=== PATIENT | female | born 1970 | race Caucasian/White ===

== ENCOUNTER 2022-12-07 09:40 | Day surgery (SDC) | payer OTHER, SELFPAY ==
--- NOTE | 2022-12-07 09:54 | US_ITS ---
[address] [address] Patient Name: RODRIGUEZ ALEXANDER MRN: [id number] date: 1970 Sex: F Assigned Patient Location: US Current Patient Location: Accession/Order Number: [id number] Exam Date: 12/07/2022 10:05 Report Date: 12/07/2022 12:49 At the request of: DOLLY ANDRADE Procedure: US biopsy thyroid EXAMINATION: US biopsy thyroid, US biopsy FNA add lesion HISTORY: Left Thyroid Nodule COMPARISON: No relevant comparison available. TECHNIQUE: After obtaining informed consent, an ultrasound-guided biopsy was performed in the usual sterile manner. FINDINGS: Nodule 1: IMAGING: Ultrasound BIOPSY NEEDLE: 25-gauge 2 inch SPECIMEN TYPE, #, LOCATION: 3 fine-needle aspirates left mid lobe thyroid nodule MEDICATION: 2 cc 1% buffered lidocaine COMPLICATIONS: None. LABORATORY: As ordered by Dr. Andrade OTHER: Negative. Nodule 2: IMAGING: Ultrasound BIOPSY NEEDLE: 25-gauge 2 inch SPECIMEN TYPE, #, LOCATION: 3 fine-needle aspirates left lower lobe thyroid nodule MEDICATION: 2 cc 1% buffered lidocaine COMPLICATIONS: None. LABORATORY: As ordered by Dr. Andrade OTHER: Negative. US/US biopsy thyroid IMPRESSION: Uneventful ultrasound guided biopsy of 2 separate left thyroid nodules. The patient was instructed to obtain follow up care and biopsy results from the referring physician. Electronically authenticated by: LEXIS JAIN Date: 12/07/2022 12:49
[2022-12-07 10:00] VITALS: BP 122/88; PULSE 84; O2SAT 100
--- NOTE | 2022-12-07 10:25 | US_ITS ---
[address] [address] Patient Name: RODRIGUEZ ALEXANDER MRN: [id number] date: 1970 Sex: F Assigned Patient Location: US Current Patient Location: Accession/Order Number: [id number] Exam Date: 12/07/2022 10:25 Report Date: 12/07/2022 12:49 At the request of: DOLLY ANDRADE Procedure: US biopsy FNA add lesion EXAMINATION: US biopsy thyroid, US biopsy FNA add lesion HISTORY: Left Thyroid Nodule COMPARISON: No relevant comparison available. TECHNIQUE: After obtaining informed consent, an ultrasound-guided biopsy was performed in the usual sterile manner. FINDINGS: Nodule 1: IMAGING: Ultrasound BIOPSY NEEDLE: 25-gauge 2 inch SPECIMEN TYPE, #, LOCATION: 3 fine-needle aspirates left mid lobe thyroid nodule MEDICATION: 2 cc 1% buffered lidocaine COMPLICATIONS: None. LABORATORY: As ordered by Dr. Andrade OTHER: Negative. Nodule 2: IMAGING: Ultrasound BIOPSY NEEDLE: 25-gauge 2 inch SPECIMEN TYPE, #, LOCATION: 3 fine-needle aspirates left lower lobe thyroid nodule MEDICATION: 2 cc 1% buffered lidocaine COMPLICATIONS: None. LABORATORY: As ordered by Dr. Andrade OTHER: Negative. US/US biopsy FNA add lesion IMPRESSION: Uneventful ultrasound guided biopsy of 2 separate left thyroid nodules. The patient was instructed to obtain follow up care and biopsy results from the referring physician. Electronically authenticated by: LEXIS JAIN Date: 12/07/2022 12:49
[2022-12-07] MEDS: LIDOCAINE HCL 10 ML, SODIUM BICARBONATE 1 MEQ INJ (10:45)
--- NOTE | 2022-12-07 11:32 | PC.NURSE ---
1056 At very end of procedure pt began to complain of pain radiating around right neck to posterior neck. Pt then began to cry . Dr Li assisting with pt and rescanned thyroid and had no problems noted. 1058 Pt allowed to remain sitting and to move neck some while I started to hold pressure on site for next 4 minutes with hemostasis achieved. 1105 Bandaid applied and ice pack to biopsy site and right neck area. Pt states that the pain has been feeling better since moving and sitting for a little while. Pt states that she feels like she is able to go home.
== END 2022-12-07 11:11 | disposition home or self-care (01) ==
LOC: US 09:45
PROVIDERS: Radiology Diagnostic Radiology; Visit Provider Otolaryngology
DX: E04.1 Nontoxic single thyroid nodule (principal)
CPT/HCPCS: 10005; 10006; 88173

== ENCOUNTER 2023-07-17 10:07 | Outpatient (OUT) | payer OTHER, SELFPAY ==
--- NOTE | 2023-07-17 10:13 | US_ITS ---
The [address] [address] Patient Name: RODRIGUEZ ALEXANDER MRN: [id number] date: 1970 Sex: F Assigned Patient Location: US Current Patient Location: US Accession/Order Number: [id number] Exam Date: 07/17/2023 10:14 Report Date: 07/17/2023 11:18 At the request of: DOLLY CHO Procedure: US thyroid EXAMINATION: US thyroid HISTORY: Malignant Neoplasm Of Thyroid C73 COMPARISON: 11/09/2022, 12/07/2022 TECHNIQUE: Sonographic images of the thyroid gland were obtained. FINDINGS: The right thyroid lobe measures 4.9 x 1.2 x 1.6 cm. 2 focal nodules over 5 mm. Nodule 1:0.9 x 0.5 x 0.8 cm. Solid, hypoechoic, wide, smooth margins, no calcifications. TR 4 Nodule 2:0.7 x 0.4 x 0.7 cm. Solid, hypoechoic, wide, smooth margins, no calcifications. TR 4 The thyroid isthmus measures 4 mm, mildly thickened. No focal nodule The left thyroid lobe is surgically absent US/US thyroid IMPRESSION: 2 right subcentimeter TR 4 nodules. TI-RADS: The [employer] TI-RADS committee's white paper recommendations for thyroid lesions classified as TR4 (moderately suspicious) are listed below: > 1.0 cm. Follow-up ultrasound in 1, 2, 3, and 5 years. > 1.5 cm. FNA. J. Am Dana Radiol 2017;14:587-595. Electronically authenticated by: LEXIS JAIN Date: 07/17/2023 11:18
== END 2023-07-17 10:08 | disposition home or self-care (01) ==
LOC: US 10:08
PROVIDERS: Visit Provider Otolaryngology
DX: C73 Malignant neoplasm of thyroid gland (principal); E04.2 Nontoxic multinodular goiter
CPT/HCPCS: 76536

== ENCOUNTER 2023-12-07 15:17 | Outpatient (OUT) | payer OTHER, SELFPAY ==
--- NOTE | 2023-12-07 15:19 | US_ITS ---
The [address] [address] Patient Name: RODRIGUEZ ALEXANDER MRN: [id number] date: 1970 Sex: F Assigned Patient Location: US Current Patient Location: Accession/Order Number: [id number] Exam Date: 12/07/2023 15:24 Report Date: 12/11/2023 08:13 At the request of: DOLLY CHO Procedure: US thyroid EXAMINATION: US thyroid HISTORY: Papillary Thyroid Carcinoma, Thyroid Nodule COMPARISON: 07/17/2023 TECHNIQUE: Sonographic images of the thyroid gland were obtained. FINDINGS: The right thyroid lobe measures 4.8 x 1.4 x 1.4 cm. Mild heterogeneous echotexture with 2 nodules over 5 mm per the most suspicious nodule: Nodule 1:1.0 x 0.6 x 0.5 cm. Solid, hypoechoic, wide, smooth margins, no calcifications. TR 4 The thyroid isthmus measures 2.4 mm. No focal nodule Left thyroid lobe is surgically absent US/US thyroid IMPRESSION: 2 stable right thyroid nodules the largest a 1.0 cm TR 4 nodule TI-RADS: The [employer] TI-RADS committee's white paper recommendations for thyroid lesions classified as TR4 (moderately suspicious) are listed below: > 1.0 cm. Follow-up ultrasound in 1, 2, 3, and 5 years. > 1.5 cm. FNA. J. Am Dana Radiol 2017;14:587-595. Electronically authenticated by: LEXIS JAIN Date: 12/11/2023 08:13
== END 2023-12-07 15:18 | disposition home or self-care (01) ==
LOC: US 15:17
PROVIDERS: Visit Provider Otolaryngology
DX: C73 Malignant neoplasm of thyroid gland (principal)
CPT/HCPCS: 76536

== ENCOUNTER 2024-08-22 19:11 | Outpatient (OUT) | payer OTHER, SELFPAY ==
--- NOTE | 2024-08-22 19:16 | US_ITS ---
The [address] [address] Patient Name: RODRIGUEZ ALEXANDER MRN: [id number] date: 1970 Sex: F Assigned Patient Location: US Current Patient Location: Accession/Order Number: [id number] Exam Date: 08/23/2024 08:07 Report Date: 08/23/2024 08:08 At the request of: DOLLY CHO MD Procedure: US thyroid Thyroid ultrasound Reason for exam: Nontoxic multinodular goiter Comparison: Thyroid ultrasound 12/07/2023 Technique: Grayscale and color Doppler images of the thyroid gland were obtained. Findings: The right lobe measures 4.3 x 1.1 x 1.5 cm. The left lobe has been removed. Isthmus measures 9 mm. 2. Hypoechoic nodules are identified within the right lobe largest measuring 8 x 7 x 5 mm involving the superior pole. No microcalcifications. The second is seen involving the midpole of the right lobe measuring 8 x 6 x 3 mm. These nodules are grossly unchanged from the prior ultrasound study. US/US thyroid Impression: Stable nodules involving the remaining right lobe of the thyroid gland when compared to the prior study from 12/07/2023. Repeat ultrasound in one year is suggested. Impression dictated by: Jesica Diana Jr.OSivakumar 08/23/2024 8:08 AM Dictation Location: [facility] Electronically authenticated by: [id number] Y Date: 08/23/2024 08:08
== END 2024-08-22 19:12 | disposition home or self-care (01) ==
PROVIDERS: Visit Provider Otolaryngology
DX: E04.2 Nontoxic multinodular goiter (principal)
CPT/HCPCS: 76536

== ENCOUNTER 2025-01-13 17:34 | Outpatient (OUT) | payer OTHER, SELFPAY ==
--- NOTE | 2025-01-13 | US_ITS ---
The [address] [address] Patient Name: RODRIGUEZ ALEXANDER MRN: [id number] date: 1970 Sex: F Assigned Patient Location: US Current Patient Location: Accession/Order Number: [id number] Exam Date: 01/13/2025 18:20 Report Date: 01/14/2025 09:02 At the request of: DOLLY CHO MD Procedure: US thyroid THYROID ULTRASOUND COMPARISON: 08/22/2024 CLINICAL DATA: Follow-up right thyroid nodules. Previous left thyroidectomy for papillary carcinoma. The left thyroid lobe is surgically absent. No masses are seen at the thyroid bed. The right thyroid lobe measures 4.2 x 1.5 x 1.3 cm. The isthmus measures 2 - 3 mm. There is normal echogenicity. At the superior pole, there is redemonstration of a slightly hyperechoic nodule with hypoechoic rim measuring 6 x 4 x 7 mm. This is not significantly changed. At the inferior pole, there is a heterogeneous hypoechoic nodular area measuring 6 x 4 x 6 mm, also similar. No new nodularity is noted. US/US thyroid IMPRESSION: PRIOR LEFT THYROIDECTOMY. NO RECURRENT MASS. STABLE SUBCENTIMETER RIGHT THYROID NODULES. Impression dictated by: Tala Owens M.D. 01/14/2025 9:02 AM Dictation Location: [facility] Electronically authenticated by: [id number] Y Date: 01/14/2025 09:02
--- OUTSIDE RECORDS SUMMARY | 2025-01-13 17:38 | XMS_ITS | Encounter Summary ---
Author Organization [facility] Address [address] [place] [address] Care Team Providers Care Digital Tech Name Role Phone Seymour Waller MD Primary Care Provider Bere Andrade MD Unavailable [phone] Encounter Details Date Type Department Care Team (Latest Contact Info) Description 08/23/2024 Results Follow-Up [facility] [address] [place] [address] Maryanne Ortega PA [address] [place] [address] Dermatopathology exam Social History Tobacco Use Types Packs/Day Years Used Date Smoking Tobacco: Never Smokeless Tobacco: Never Alcohol Use Standard Drinks/Week Comments Not Currently 0 (1 standard drink = 0.6 oz pur e alcohol) Comments Unknown Sex and Gender Information Value Date Recorded Sex Assigned at Not on file Legal Sex Female 10:49 AM EDT Gender Identity Not on file Sexual Orientation Not on file documented as of this encounter Plan of Treatment Not on file documented as of this encounter Visit Diagnoses Not on filedocumented in this encounter Care Teams Digital Tech Relationship Specialty Start Date End Date Seymour Waller MD [address] [place] [address] PCP - General Family Medicine 11/16/22 Bere Andrade MD [address] [facility] [address] [place] [address] Otolaryngology 11/23/22 documented as of this encounter
--- OUTSIDE RECORDS SUMMARY | 2025-01-13 17:38 | XMS_ITS | CCD ---
Author Organization [facility] Care Team Providers Care Mailing Machine Assistant Name Role Phone Conn, Rose C Unavailable Unavailable Conn, Rose C Unavailable Unavailable Conn, Rose C Unavailable Unavailable Conn, Rose C Unavailable Unavailable Conn, Rose C Unavailable Unavailable Conn, Rose C Unavailable Unavailable Conn, Rose C Unavailable Unavailable Conn, Rose C Unavailable Unavailable LINDY, SRI Unavailable Unavailable LINDY, SRI Unavailable Unavailable REQUEST, NONE LISTED Unavailable Unavailable LEXIS JAIN V Unavailable Unavailable LINDY, SRI Unavailable Unavailable No, Physician Unavailable Unavailable No, Physician Primary Care Provider Unavailabl e NO, PHYSICIAN Primary Care Unavailable STEPHANIE DOSS Attending Unavailable Jaky Pimentel Primary Care Provider Margarito OZUNA - Jaky JIMENEZ Primary Care Prov ider Unavailable NONE, XXXX Primary Care Physician Unavailab Seymour Barton Primary Care Physician [phone] NO, PHYSICIAN Primary Care Unavailable DISHA BISHOP Attending Unavailab le NO, PHYSICIAN Primary Care Unavailable Seymour Waller Primary Care Physician [phone] JUAQUIN CHAVEZ Attending Unavailable Link, Seymour Suarez Attending Unavailable Link, Seymour Suarez Attending Unavailable Link, Seymour Suarez Attending Unavailable Link, Seymour Suarez Admitting Unavailable Link, Seymour Suarez Attending Unavailable Timmis, Dolly H Admitting Unavailable Timmis, Dolly H Attending Unavailable Timmis, Dolly H Admitting Unavailable Timmis, Dolly H Attending Unavailable Rex Van Admitting Unavailable Rex Van Attending Unavailable Rex Van Admitting Unavailable Rex Van Attending Unavailable JUAQUIN CHAVEZ Admitting Unavailable JUAQUIN CHAVEZ Attending Unavailable TONY Ayala Admitting Unavailable TONY Ayala Attending Unavailable Rex Van Attending Unavailable Rex Van Attending Unavailable Disha Haywood Attending Unavailable Dolly Cho Attending Unavailable Dolly Cho Admitting Unavailable Seymour Waller MD Primary Care Provider Dolly Cho MD Unavailable Tonya Oconnor DNP Primary Care Provider Seymour Waller MD Primary Care Provider MARIA LUZ ORTEGA Attending Unavailable SAEED MAGALLANES Referring Unavailable MARIA LUZ ORTEGA Attending Unavailable DOLLY CHO Attending Unavailable TONYA OCONNOR Referring Unavailable TONYA OCONNOR Primary Care Unavailable TONYA OCONNOR Referring Unavailable TONYA OCONNOR Primary Care Unavailable Allergies Allergy Classification Reported Allergen(s) Allergy Type Date of Onset Reaction(s) Facility Hepatitis B Surface Antigen Vaccine (1 source) Hepatitis B Surface Antigen Vaccine; Translations: [hepatitis B adult vaccine] Drug Allergy Fever (finding) [facility] (20 sources) Hepatitis B Surface Antigen Vaccine; Translations: [hepatitis B adult vaccine] Drug Allergy Fever (finding), Swelling [facility] (1 source) No Known Medication Allergies; Translations: [No Known Medication Allergies] Propensity to adverse reactions (disorder) [facility] Repository Medications Current Medications Medication Drug Class(es) Dates Sig (Normalized) Sig (Original) 0.5 ML semaglutide 1 MG/ML Auto-Injector [Wegovy] (2 sources) Start: 11-30-2023 inject 0.5 mg by subcutaneous injection every week Wegovy (0.5 mg dose) subcutaneous solution 0.5 mg, SubCutaneous, qWeek, # 1 EA, Refills(s) 1, Pharmacy: [facility] #[id number], 169, cm, 11/30/23 7:52:00 EDT, Height/Length Dosing, 106.4, kg, 11/30/23 7:52:00 EDT, Weight Dosing Start Date: 11/30/23 Status: Ordered acetaminophen 500 mg oral tablet (3 sources) take 2 tablets by mouth every six hours as needed for pain acetaminophen (TYLENOL) 500 MG tablet Take 1,000 mg by mouth every 6 hours as needed for Pain 0 Active acetaminophen 300 mg / butalbital 50 mg / caffeine 40 mg oral capsule (5 sources) Barbiturate, Central Nervous System Stimulant, Methylxanthine Start: 05-31-2019 take 1 capsule by mouth every four hours as needed for headache srvynrnrps-GBAT-cc ffeine (FIORICET) 50-300-40 MG CAPS per capsule Indications: Migraine without status migrainosus, not intractable, unspecified migraine type Take 1 capsule by mouth every 4 hours as needed for Headaches 20 capsule 0 05/31/2019 Active Start: 08-06-2017 End: 12-06-2020 take 2 tablets by mouth every six hours as needed for headache sncipxipcy-ssadiahielztp-fnikyhwi (GIANCARLO CET, ESGIC) 50-325-40 MG per tablet Take 2 tablets by mouth every 6 hours as needed for Headaches 20 tablet 0 08/06/2017 12/06/2020 Discontinued (LIST CLEANUP) [id number] 200 actuat albuterol 0.09 mg/actuat metered dose inhaler (7 sources) beta2-Adrenergic Agonist Start: 06-18-2024 take 2 puff(s) by inhalation every six hours as needed for wheezing albuterol sulfate HFA (PROVENTIL;VENTOLIN;PROAIR) 108 (90 Base) MCG/ACT inhaler Inhale 2 puffs into the lungs every 6 hours as needed for Wheezing or Shortness of Breath 18 g 5 06/18/2024 Active albuterol (PROVE NTIL) (2.5 MG/3ML) 0.083% nebulizer solution Take 2.5 mg by nebulization every 6 hours as needed for Wheezing 0 Active take 2 puff(s) by in halation every six hours as needed for wheezing albuterol sulfate HFA 108 (90 Base) MCG/ACT inhaler Inhale 2 puffs into the lungs every 6 hours as needed for Wheezing 0 Active take 2 puff(s) by in halation every six hours as needed for wheezing albuterol sulfate HFA 108 (90 Base) MCG/ACT inhaler Inhale 2 puffs into the lungs every 6 hours as needed for Wheezing 0 Active albuterol (PROVE NTIL) 2.5 mg /3 mL (0.083 %) nebulizer solution 2.5 mg every 6 (six) hours as needed . 0 Active Albuterol (Eqv-ProAir HFA) 90 mcg/inh inhalation aerosol (9 sources) Start: 06-26-2023 take 2 puff(s) by inhalation every six hours Albuterol (Eqv-ProAir HFA) 90 mcg/inh inhalation aerosol 2 puff(s), Inhalation, q6hr, 8.5 gm, Refill(s) 0, [facility] #[id number], 169, cm, 06/26/23 17:54:00 EST, Height/Length Dosing, 104, kg, 06/26/23 17:54:00 EST, Weight Dosing Start Date: 06/26/23 Status: Ordered amitriptyline hydrochloride 25 mg oral tablet (20 sources) Tricyclic Antidepressant Start: 09-23-2024 take 1 tablet by mouth once daily amitriptyline (ELAVIL) 25 MG tablet Take 1 tablet by mouth nightly 90 tablet 1 09/23/2024 Active Start: 01-26-2023 take 1 tablet by roderick th once daily amitriptyline (ELAVIL) 25 MG tablet Take 1 tablet by mouth nightly 90 tablet 05/28/2024 Active Start: 01-03-2023 take 1 tablet by roderick th once daily at bedtime amitriptyline 10 mg Tab 10 mg = 1 tab(s), Oral, Once a day (at bedtime), Refills(s) 0, Migraine headache Start Date: 01/03/23 Status: Ordered azithromycin 250 mg oral tablet (3 sources) Macrolide Antimicrobial Start: 05-24-2023 End: 05-29-2023 Zithromax 250 mg Tab = 1 packet(s), Oral, As Directed, as directed on package labeling, X 5 day(s), # 6 tab(s), Refills(s) 0, Pharmacy: [facility] #[id number], 169, cm, 05/24/23 14:13:00 EST, Height/Length Dosing, 100.9, kg, 05/24/23 14:13:00 EST, Weight Dosing Start Date: 05/24/23 Stop Date: 05/29/23 Status: Ordered Start: 12-06-2020 End: 12-11-2020 azithromycin (ZITHROMAX) 250 MG tablet Indications: Pneumonia due to COVID-19 virus Take 1 tablet by mouth See Admin Instructions for 5 days 500mg on day 1 followed by 250mg on days 2 - 5 6 tablet 0 12/06/2020 12/11/2020 Active benzonatate 100 mg oral capsule (3 sources) Non-narcotic Antitussive Start: 11-26-2023 End: 12-03-2023 take 1 capsule by mouth three times daily Tessalon 100 mg Cap 100 mg = 1 cap(s), Oral, TID, X 7 day(s), # 21 cap(s), Refills(s) 0, Pharmacy: [facility] #[id number], 169, cm, 11/26/23 10:34:00 EDT, Height/Length Dosing, 106.3, kg, 11/26/23 10:34:00 EDT, Weight Dosing Start Date: 11/26/23 Stop Date: 12/03/23 Status: Ordered busPIRone hydrochloride 10 mg oral tablet (20 sources) Start: 09-23-2024 take 1 tablet by mouth once daily busPIRone (BUSPAR) 10 MG tablet Take 1 tablet by mouth daily 90 tablet 1 09/23/2024 Active Start: 04-08-2024 take 1 tablet by roderick th once daily busPIRone (BUSPAR) 10 MG tablet Take 1 tablet by mouth daily 04/08/2024 Active Start: 11-06-2023 take 1 tablet by roderick th twice daily busPIRone 10 mg Tab See Instructions, take 1 tablet by mouth twice a day, # 60 tab(s), Refills(s) 0, [facility]acy: [facility] #[id number], 169, cm, 09/04/23 8:33:00 EDT, Height/Length Dosing, 105.1, kg, 09/04/23 8:33:00 EDT, Weight Dosing Start Date: 11/06/23 Status: Ordered Start: 09-04-2023 End: 12-06-2020 take 1 tablet by mouth twice daily busPIRone 10 mg Tab 10 mg = 1 tab(s), Oral, BID, # 60 tab(s), Refills(s) 1, Pharmacy: [facility] #[id number], 169, cm, 09/04/23 8:33:00 EDT, Height/Length Dosing, 105.1, kg, 09/04/23 8:33:00 EDT, Weight Dosing Start Date: 09/04/23 Status: Ordered Start: 04-12-2019 busPIRone (BUS PAR) 15 MG tablet busPIRone (Buspa r) 10 MG tablet Take by mouth 2 (two) times a day Active take 1 tablet by roderick th three times daily busPIRone (BUSPAR) 10 MG tablet Take 10 mg by mouth 3 (three) times a day. 0 Active cetirizine hydrochloride 10 mg oral tablet (10 sources) Histamine-1 Receptor Antagonist Start: 05-21-2024 take 1 tablet by mouth once daily cetirizine (ZYRTEC) 10 MG tablet Take 1 tablet by mouth daily 05/21/2024 Active Start: 09-04-2023 take 1 tablet by roderick th once daily cetirizine 10 mg Tab 10 mg = 1 tab(s), Oral, Daily, # 90 tab(s), Refills(s) 3, Pharmacy: [facility], 169, cm, 09/04/23 8:33:00 EDT, Height/Length Dosing, 105.1, kg, 09/04/23 8:33:00 EDT, Weight Dosing Start Date: 09/04/23 Status: Ordered End: 12-06-2020 Cetirizine HCl (ZYRTEC ALLER GY PO) Take by mouth daily 0 12/06/2020 Discontinued (LIST CLEANUP) Cetirizine HCl ( ZYRTEC ALLERGY PO) Take by mouth daily 0 Active cetirizine (ZyrT EC) 10 MG tablet Take by mouth daily . 0 Active ciclopirox 0.0077 mg/mg topical gel (8 sources) Start: 07-29-2024 Ciclopirox (LOPROX) 0.77 % gel Indications: Tinea corporis Apply topical to tinea corporis sites on breast L, arms and neck area 2 x day for 14 days 100 g 07/29/2024 Active cyclobenzaprine hydrochloride 10 mg oral tablet (2 sources) Muscle Relaxant End: 12-06-2020 take 1 tablet by mouth three times daily as needed for muscle spasms cyclobenzaprine (FLEXERIL) 10 MG tablet Take 10 mg by mouth 3 times daily as needed for Muscle spasms 0 12/06/2020 Discontinued (LIST CLEANUP) Cymbalta 60 mg Cap-DR (1 source) Start: 01-03-2023 take 1 capsule by mouth once daily Cymbalta 60 mg Cap-DR 60 mg, Oral, Daily, Refills(s) 0, Depression Start Date: 01/03/23 Status: Ordered DULoxetine 60 mg delayed release oral capsule (20 sources) Serotonin and Norepinephrine Reuptake Inhibitor Start: 09-23-2024 take 1 capsule by mouth once daily DULoxetine (CYMBALTA) 60 MG extended release capsule Take 1 capsule by mouth daily 90 capsule 1 09/23/2024 Active Start: 04-12-2019 take 1 capsule by mo uth once daily DULoxetine (CYMBALTA) 60 MG extended release capsule Take 1 capsule by mouth daily 90 capsule 05/28/2024 Active End: 12-06-2020 take 2 capsules by mouth once daily DULoxetine (CYMBALTA) 30 MG capsule Take 60 mg by mouth daily. 0 12/06/2020 Discontinued (LIST CLEANUP) take 1 capsule by mo ut once daily DULoxetine (CYMBALTA) 20 MG capsule Take 20 mg by mouth daily. 0 Active Мария (20 sources) Histamine-1 Receptor Antagonist Start: 01-03-2023 take 15 mg by mouth once daily Мария 15 mg, Oral, Daily, Refills(s) 0, Allergy symptoms Start Date: 01/03/23 Status: Ordered End: 08-30-2024 take 1 tablet by mouth in the morning fexofenadine (Мария) 180 MG tablet Take 180 mg by mouth in the morning. 08/30/2024 Discontinued fluconazole 150 mg oral tablet (6 sources) Azole Antifungal Start: 05-24-2023 take 1 tablet by mouth once Diflucan 150 mg Tab 150 mg = 1 tab(s), Oral, Once, # 1 tab(s), Refills(s) 0, Pharmacy: [facility] #[id number], 169, cm, 05/24/23 14:13:00 EST, Height/Length Dosing, 100.9, kg, 05/24/23 14:13:00 EST, Weight Dosing Start Date: 05/24/23 Status: Ordered hydroCHLOROthiazide 12.5 mg / losartan potassium 50 mg oral tablet (8 sources) Thiazide Diuretic, Angiotensin 2 Receptor Elisha Start: 09-23-2024 take 1 tablet by mouth once daily losartan-hydroCHLO ROthiazide (HYZAAR) 50-12.5 MG per tablet Take 1 tablet by mouth daily 90 tablet 1 09/23/2024 Active Start: 06-18-2024 take 1 tablet by roderick th once daily losartan-hydroCHLOROthiazide (Hyzaar) 50-12.5 MG tablet Take 1 tablet by mouth Daily 06/18/2024 Active ibuprofen 200 mg oral tablet (3 sources) Nonsteroidal Anti-inflammatory Drug End: 12-06-2020 take 3 tablets by mouth every six hours as needed for pain ibuprofen (ADVIL;MOTRIN) 200 MG tablet Take 600 mg by mouth every 6 hours as needed for Pain 0 12/06/2020 Discontinued (LIST CLEANUP) losartan potassium 50 mg oral tablet (20 sources) Angiotensin 2 Receptor Elisha Start: 01-26-2023 End: 08-30-2024 take 1 tablet by mouth once daily losartan 50 mg Tab 50 mg = 1 tab(s), Oral, Daily, # 90 tab(s), Refills(s) 3, Pharmacy: [facility], 169, cm, 09/04/23 8:33:00 EDT, Height/Length Dosing, 105.1, kg, 09/04/23 8:33:00 EDT, Weight Dosing Start Date: 09/04/23 Status: Ordered Start: 01-03-2023 take 1 tablet by roderick th once daily losartan 25 mg Tab 25 mg = 1 tab(s), Oral, Daily, Refills(s) 0, High blood pressure Start Date: 01/03/23 Status: Ordered Multivitamin preparation (13 sources) Start: 01-13-2023 take 1 tablet by mouth once daily multivitamin 1 tab, Oral, Daily, Prophylaxis Start Date: 01/13/23 Status: Ordered omeprazole 40 mg delayed release oral capsule (8 sources) Proton Pump Inhibitor Start: 09-23-2024 take 1 capsule by mouth once daily before breakfast omeprazole (PRILOSEC) 40 MG delayed release capsule Take 1 capsule by mouth every morning (before breakfast) 90 capsule 1 09/23/2024 Active Start: 05-28-2024 take 1 capsule by mo uth before mealtime omeprazole (PriLOSEC) [address] capsule Take 40 mg by mouth in the morning. Take before meals. 05/28/2024 Active ondansetron 4 mg disintegrating oral tablet (2 sources) Serotonin-3 Receptor Antagonist Start: 12-06-2020 take 1 tablet by mouth every eight hours as needed for nausea ondansetron (ZOFRAN ODT) 4 MG disintegrating tablet Take 1 tablet by mouth every 8 hours as needed for Nausea or Vomiting 12 tablet 0 12/06/2020 Active Start: 12-06-2020 End: 12-06-2020 ondansetron (ZOFRAN) injecti on 4 mg predniSONE 20 mg oral tablet (3 sources) Start: 06-26-2023 End: 07-01-2023 take 2 tablets by mouth once daily predniSONE 20 mg Tab 40 mg = 2 tab(s), Oral, Daily, X 5 day(s), # 10 tab(s), Refills(s) 0, Pharmacy: [facility] #[id number], 169, cm, 06/26/23 17:54:00 EST, Height/Length Dosing, 104, kg, 06/26/23 17:54:00 EST, Weight Dosing Start Date: 06/26/23 Stop Date: 07/01/23 Status: Ordered Start: 05-24-2023 End: 05-29-2023 take 2 tablets by mouth twice daily predniSONE 20 mg Tab 40 mg = 2 tab(s), Oral, BID, X 5 day(s), # 20 tab(s), Refills(s) 0, Pharmacy: [facility] #[id number], 169, cm, 05/24/23 14:13:00 EST, Height/Length Dosing, 100.9, kg, 05/24/23 14:13:00 EST, Weight Dosing Start Date: 05/24/23 Stop Date: 05/29/23 Status: Ordered rizatriptan 10 mg oral tablet (20 sources) Serotonin-1b and Serotonin-1d Receptor Agonist Start: 09-23-2024 End: 12-22-2024 take 1 tablet by mouth once daily as needed rizatriptan (MAXALT) 10 MG tablet Take 1 tablet by mouth daily as needed for Migraine May repeat in 2 hours if needed 90 tablet 09/23/2024 12/22/2024 Active Start: 09-04-2023 End: 08-27-2024 take 1 tablet by mouth once daily as needed rizatriptan (MAXALT) 10 MG tablet Take 1 tablet by mouth daily as needed for Migraine May repeat in 2 hours if needed 90 tablet 05/29/2024 08/27/2024 Active Start: 01-03-2023 rizatriptan 5 mg oral tablet 5 mg = 1 tab(s), Oral, As Directed, PRN Migraine headache, Refills(s) 0 Start Date: 01/03/23 Status: Ordered rizatriptan (MAX ALT-HOIST MECHANIC) 10 MG disintegrating tablet Take 10 mg by mouth once as needed for Migraine May repeat in 2 hours if needed 0 Active triamcinolone acetonide 5 mg/ml topical cream (10 sources) Corticosteroid Start: 07-24-2024 triamcinolone (Kenalog) 0.5 % cream APPLY topically 1-2 times per day 07/24/2024 Active Start: 03-05-2023 End: 03-12-2023 take 1 spray(s) nasal route once daily Nasacort Allergy 24HR nasal spray 55 mcg, 1 spray(s), Nasal, Daily for 7 day(s), 1 EA, Refill(s) 0, one spray bilateral nostrils daily x 7 days., [facility] #[id number], 167, cm, 03/05/23 14:42:00 EST, Height/Length Dosing, 98.7, kg, 03/05/23 14:42:00 EST, Weight Dosing Start Date: 03/05/23 Stop Date: 03/12/23 Status: Ordered End: 12-06-2020 triamcinolone (KENALOG) 0.1 % cream Apply topically 3 times daily as needed Apply topically 2 times daily. 0 12/06/2020 Discontinued (LIST CLEANUP) Ventolin HFA 90 mcg/inh Aerosol-Adpt (2 sources) Start: 05-24-2023 End: 05-31-2023 take 1 puff(s) by inhalation every six hours for wheezing Ventolin HFA 90 mcg/inh Aerosol-Adpt 1 puff(s), Inhalation, q6hr for wheezing for 7 day(s), 8 gm, Refill(s) 0, [facility] #[id number], 169, cm, 05/24/23 14:13:00 EST, Height/Length Dosing, 100.9, kg, 05/24/23 14:13:00 EST, Weight Dosing Start Date: 05/24/23 Stop Date: 05/31/23 Status: Ordered Completed/Discontinued Medications Medication Drug Class(es) Dates Sig (Normalized) Sig (Original) 1 ml dexamethasone phosphate 10 mg/ml injection (2 sources) Corticosteroid Start: 12-06-2020 End: 12-06-2020 dexamethasone (PF) (DECADRON) injection 6 mg Start: 05-31-2019 End: 05-31-2019 dexamethasone (PF) (DECADRON ) injection 10 mg 1 ml diphenhydrAMINE hydrochloride 50 mg/ml cartridge (4 sources) Histamine-1 Receptor Antagonist Start: 05-31-2019 End: 05-31-2019 diphenhydrAMINE (BENADRYL) injection 12.5 mg End: 12-06-2020 take 2 capsules by mouth every six hours as needed diphenhydrAMINE (BENADRYL) 25 MG capsule Take 50 mg by mouth every 6 hours as needed. 0 12/06/2020 Discontinued (LIST CLEANUP) 1 ml ketorolac tromethamine 30 mg/ml cartridge (4 sources) Nonsteroidal Anti-inflammatory Drug, Cyclooxygenase Inhibitor Start: 12-06-2020 End: 12-06-2020 ketorolac (TORADOL) injection 30 mg Start: 05-31-2019 End: 05-31-2019 ketorolac (TORADOL) injectio n 30 mg Start: 05-13-2019 End: 05-13-2019 ketorolac (TORADOL) injectio n 60 mg Start: 05-13-2019 End: 05-13-2019 ketorolac (TORADOL) injectio n 60 mg 2 ml metoclopramide 5 mg/ml prefilled syringe (1 source) Dopamine-2 Receptor Antagonist Start: 05-31-2019 End: 05-31-2019 metoclopramide (REGLAN) injection 10 mg 50 ml sodium chloride 9 mg/ml injection (1 source) Start: 12-06-2020 End: 12-06-2020 0.9 % sodium chloride bolus Problems Active Problems Problem Classification Problem Date Documented Da te Episodic/Chronic Acute bronchitis (1 source) Acute bronchitis; Translations: [Acute bronchitis, unspecified] Onset: 05-24-2023 Episodic Allergic reactions (6 sources) Allergic contact dermatitis; Translations: [Allergic contact dermatitis, unspecified cause] Onset: 08-09-2024 08-09-2024 Episodic Anxiety disorders (20 sources) Posttraumatic stress disorder; Translations: [Post-traumatic stress disorder, unspecified] Onset: 11-17-2022 Chronic Cancer of thyroid (20 sources) Malignant tumor of thyroid gland; Translations: [Malignant neoplasm of thyroid gland] Onset: 07-21-2023 Chronic Chronic obstructive pulmonary disease and bronchiectasis (10 sources) Chronic obstructive lung disease; Translations: [Other specified chronic obstructive pulmonary disease] Onset: 06-26-2023 Chronic Chronic obstructive pulmonary disease and bronchiectasis (2 sources) Bronchitis, not specified as acute or chronic; Translations: [Bronchitis, not specified as acute or chronic] Onset: 04-16-2023 Episodic Essential hypertension (20 sources) Hypertensive disorder; Translations: [Essential hypertension] Onset: 11-17-2022 01-13-2023 Chronic Fluid and electrolyte disorders (1 source) Dehydration; Translations: [Dehydration] Episodic Genitourinary symptoms and ill-defined conditions (6 sources) Increased frequency of urination; Translations: [Dysuria] Onset: 09-23-2024 11-26-2023 Episodic Headache; including migraine (20 sources) Refractory migraine without aura; Translations: [Migraine] Onset: 09-04-2023 01-13-2023 Chronic Mood disorders (20 sources) Mild recurrent major depression; Translations: [Major depressive disorder, recurrent, mild] Onset: 12-21-2022 Chronic Nausea and vomiting (1 source) Nausea and vomiting; Translations: [Nausea with vomiting, unspecified] Episodic Neoplasms of unspecified nature or uncertain behavior (2 sources) Neoplastic disease; Translations: [Neoplasm of unspecified behavior of bone, soft tissue, and skin] 08-15-2024 Episodic Nutritional deficiencies (6 sources) Vitamin D deficiency; Translations: [Vitamin D deficiency, unspecified] Onset: 09-04-2023 Chronic Other aftercare (2 sources) Removal of sutures done; Translations: [Encounter for removal of sutures] 08-30-2024 Episodic Other circulatory disease (1 source) Elevated blood-pressure reading without diagnosis of hypertension; Translations: [Elevated blood pressure reading in office without diagnosis of hypertension] Episodic Other gastrointestinal disorders (12 sources) Irritable bowel syndrome; Translations: [Irritable bowel syndrome without diarrhea] Onset: 11-17-2022 11-17-2022 Chronic Other lower respiratory disease (10 sources) Wheezing; Translations: [Wheezing] Onset: 06-26-2023 Episodic Other nutritional; endocrine; and metabolic disorders (5 sources) Obese class II; Translations: [Body mass index (BMI) 35.0-35.9, adult] Onset: 03-05-2023 Chronic Other nutritional; endocrine; and metabolic disorders (2 sources) Weight increased; Translations: [Abnormal weight gain] 03-04-2024 Episodic Other screening for suspected conditions (not mental disorders or infectious disease) (4 sources) Encounter for screening for diseases of the blood and blood-forming organs and certain disorders involving the immune mechanism; Translations: [Encounter for screening for diabetes mellitus] Onset: 08-09-2024 Episodic Other upper respiratory disease (8 sources) Seasonal allergic rhinitis; Translations: [Other seasonal allergic rhinitis] Onset: 09-04-2023 Chronic Other upper respiratory infections (2 sources) Acute upper respiratory infection; Translations: [Acute upper respiratory infection, unspecified] Onset: 03-05-2023 Episodic Residual codes; unclassified (1 source) Other general symptoms and signs; Translations: [Other general symptoms and signs] Onset: 06-26-2023 Episodic Residual codes; unclassified (6 sources) Patient encounter status; Translations: [Other specified health status] Onset: 09-04-2023 Episodic Spondylosis; intervertebral disc disorders; other back problems (6 sources) Neck pain; Translations: [Cervicalgia] Onset: 09-04-2023 Episodic Thyroid disorders (20 sources) Thyroid nodule; Translations: [Nontoxic single thyroid nodule] Onset: 11-17-2022 01-13-2023 Chronic Unclassified (4 sources) Non-smoker 11-26-2023 Viral infection (1 source) COVID-19; Translations: [Pneumonia due to other virus not elsewhere classified] Episodic Past or Other Problems Problem Classification Problem Date Documented Da te Episodic/Chronic Viral infection (2 sources) Disease caused by 2019-nCoV; Translations: [COVID-19] Onset: 11-26-2023 Results Test Name Value Interpretation Reference Range Facility Cult,Urineon 09-24-2024 Cult,Urine Specimen Description .CLEAN CATCH URINE Special Requests Site: Urine Culture NO SIGNIFICANT GROWTH Report Status FINAL 09/24/2024 [facility] Comment on above: Performed By: #### U #### [facility] [address] [place] [address] [place] Room Worker: Boaz Cannon MD [facility] [address] [place] [address] [place] Room Worker: Lexis Martin MD US Thyroid glandon [place] [id number] Ultrasound Report Signed Patient: KARI HUMPHREY MR#: [id number] : 1970 Acct:[id number] Age/Sex: 54 / F ADM Date: 08/22/24 Loc: US Attending Dr: Dolly Cho M.D. Ordering Physician: Dolly Cho M.D. Date of Service: 08/22/24 Procedure(s): US thyroid Accession Number(s): [id number] cc: Physician,Non-Staff Florecita; Dolly Cho M.D. [place] [id number] Patient Name: KARI HUMPHREY MRN: [id number] date: 1970 Sex: F Assigned Patient Location: US Current Patient Location: Accession/Order Number: [id number] Exam Date: 08/23/2024 08:07 Report Date: 08/23/2024 08:08 At the request of: DOLLY CHO MD Procedure: US thyroid Thyroid ultrasound Reason for exam: Nontoxic multinodular goiter Comparison: Thyroid ultrasound 12/07/2023 Technique: Grayscale and color Doppler images of the thyroid gland were obtained. Findings: The right lobe measures 4.3 x 1.1 x 1.5 cm. The left lobe has been removed. Isthmus measures 9 mm. 2. Hypoechoic nodules are identified within the right lobe largest measuring 8 x 7 x 5 mm involving the superior pole. No microcalcifications. The second is seen involving the midpole of the right lobe measuring 8 x 6 x 3 mm. These nodules are grossly unchanged from the prior ultrasound study. US/US thyroid Impression: Stable nodules involving the remaining right lobe of the thyroid gland when compared to the prior study from 12/07/2023. Repeat ultrasound in one year is suggested. Impression dictated by: Teodoro Pa Jr., D.O. 08/23/2024 8:08 AM Dictation Location: [place] [address] Electronically authenticated by: [id number] Y Date: 08/23/2024 08:08 Dictated By: Teodoro Pa M.D. Signed By: 08/23/24810 DD/ 7 TD/TT: Time Signal Wirer: [facility] Radiology, Radiologist, MD - 08/23/2024 [place] [address] Ultrasound Report Signed Patient: KARI HUMPHREY MR#: [id number] : 1970 Acct:[id number] Age/Sex: 54 / F ADM Date: 08/22/24 Loc: US Attending Dr: Dolly Cho M.D. Ordering Physician: Dolly Cho M.D. Date of Service: 08/22/24 Procedure(s): US thyroid Accession Number(s): [id number] cc: Physician,Non-Staff Florecita; Dolly Cho M.D. The [address] [address] Patient Name: KARI HUMPHREY MRN: [facility]:[id number] date: 1970 Sex: F Assigned Patient Location: US Current Patient Location: Accession/Order Number: [id number] Exam Date: 08/23/2024 08:07 Report Date: 08/23/2024 08:08 At the request of: DOLLY CHO MD Procedure: US thyroid Thyroid ultrasound Reason for exam: Nontoxic multinodular goiter Comparison: Thyroid ultrasound 12/07/2023 Technique: Grayscale and color Doppler images of the thyroid gland were obtained. Findings: The right lobe measures 4.3 x 1.1 x 1.5 cm. The left lobe has been removed. Isthmus measures 9 mm. 2. Hypoechoic nodules are identified within the right lobe largest measuring 8 x 7 x 5 mm involving the superior pole. No microcalcifications. The second is seen involving the midpole of the right lobe measuring 8 x 6 x 3 mm. These nodules are grossly unchanged from the prior ultrasound study. US/US thyroid Impression: Stable nodules involving the remaining right lobe of the thyroid gland when compared to the prior study from 12/07/2023. Repeat ultrasound in one year is suggested. Impression dictated by: Teodoro Pa Jr., D.O. 08/23/2024 8:08 AM Dictation Location: [facility] Electronically authenticated by: [id number] Y Date: 08/23/2024 08:08 Dictated By: Teodoro Pa M.D. Signed By: 08/23/24810 DD/ 7 TD/TT: Time Signal Wirer: [facility] Radiology Study observation (narrative) [facility] US Thyroid glandOrdered By: Radiologist Radiology on 08-23-2024 [facility] Work Phone: No Panel Informationon 08-15 Type of biopsy: pun h Informed consent: discussed and consent obtained Informed consent comment: The risks and benefits of the biopsy were discussed. Risks include but are not limited to bleeding, infection, scarring, pain, and nerve damage. An opportunity to ask questions prior to the procedure was permitted and all questions were answered. Patient was prepped and draped in usual sterile fashion: area cleansed with alcohol. Anesthesia: the lesion was anesthetized in a standard fashion Anesthetic: 1% lidocaine w/ epinephrine 1-100,000 buffered w/ 8.4% NaHCO3 Punch size: 4 mm Suture size: 4-0 Suture type: nylon Suture removal (days): 14 Hemostasis achieved with: suture and electrodesiccation Outcome: patient tolerated procedure well Outcome comment: The specimen was placed in a prelabeled formalin container to be sent for pathology Post-procedure details: sterile dressing applied and wound care instructions given Post-procedure details comment: Emphasized need to contact clinic for any signs of infection, uncontrollable bleeding, or complications. Dressing type: bandage Additional details: Photo taken Amount of lidocaine used: 0.8 cc [facility] CBC with Auto Differentialon 08-09-2024 Basophils (Bld) [#/Vol] 0.02 10*3/uL [facility] Basophils/100 WBC (Bld) 0 % 0 - 2 % [facility] Eosinophils (Bld) [#/Vol] 0.14 10*3/uL [facility] Eosinophils/100 WBC (Bld) 2 % 0 - 5 % [facility] Erythrocyte distribution width (RBC) [Ratio] 12.8 % 12.1 - 15.2 % [facility] Hematocrit (Bld) [Volume fraction] 39.8 % 36.0 - 46.0 % [facility] Hemoglobin (Bld) [Mass/Vol] 13.3 g/dL 12.0 - 16.0 g/dL [facility] Immature granulocytes (Bld) [#/Vol] 0.01 10*3/uL [facility] Immature granulocytes/100 WBC (Bld) 0 % 0 - 5 % [facility] Lymphocytes/100 WBC (Bld) 35 % 15 - 40 % [facility] Lymphocytes/100 WBC (Bld) 2.32 % [facility] MCH (RBC) [Entitic mass] 28.2 pg 26.0 - 34.0 pg [facility] MCHC (RBC) [Mass/Vol] 33.4 g/dL 31.0 - 37.0 g/dL [facility] MCV (RBC) [Entitic vol] 84.5 fL 80.0 - 100.0 fL [facility] Monocytes/100 WBC (Bld) 6 % 4 - 8 % [facility] Monocytes/100 WBC (Bld) 0.38 % [facility] Neutrophils/100 WBC (Bld) 57 % 47 - 75 % [facility] Platelet mean volume (Bld) [Entitic vol] 8.5 fL 6.0 - 12.0 fL [facility] Platelets (Bld) [#/Vol] 338 10*3/uL [facility] RBC (Bld) [#/Vol] 4.71 10*6/uL 4.00 - 5.2 0 m/uL [facility] Segmented neutrophils/100 WBC (Bld) 3.72 % [facility] WBC other (Bld) [#/Vol] 6.6 [facility] CBC with Diffon 08-09-2024 Abs. Basophil 0.02 k/uL Normal 0.00-0.20 [facility] Comment on above: Performed By: #### T NICOLE TADEO, CDP #### [facility] [address] [place], [place] [phone] [facility] Worker: Lexis Martin MD #### JAYLENE LOERA LIPJamie, VD25 #### [address] [phone] [facility] Worker: Boaz Cannon MD Abs.Imm.Granulocyte 0.01 k/uL Normal 0.00-0.30 [facility] Comment on above: Performed By: #### T NICOLE TADEO, CDP #### [facility] [address] [place] [phone] [facility] Worker: Lexis Martin MD #### JAYLENE LOERA, LIPJamie, VD25 #### [address] [phone] [facility] Worker: Boaz Cannon MD Abs.Neutrophil (Seg) 3.72 k/uL Normal 2.5-7.0 [facility] Comment on above: Performed By: #### T NICOLE TADEO, CDP #### [facility] [address] [place] [phone] [facility] Worker: Lexis Martin MD #### JAYLENE LOERA, LIPR, VD25 #### [address] [phone] [facility] Worker: Boaz Cannon MD Basophils/100 WBC (Bld) 0 % Normal 0-2 [facility] Comment on above: Performed By: #### T NICOLE TADEO, CDP #### [facility] [address] [place] [address] [facility] Worker: Lexis Martin MD #### GLYHGB, FT4, LIPR, VD25 #### [place] [phone] [facility] Worker: Boaz Cannon MD Eosinophils (Bld) [#/Vol] 0.14 10*3/uL Normal 0.00-0.40 [facility] Comment on above: Performed By: #### T NICOLE TADEO, CDP #### [facility] [address] [place] [address] [facility] Worker: Lexis Martin MD #### GLYHGB, FT4, LIPR, VD25 #### [place] [address] [facility] Worker: Boaz Cannon MD Eosinophils/100 WBC (Bld) 2 % Normal 0-5 [facility] Comment on above: Performed By: #### Coco TADEO CP, CDP #### [facility] [address] [place] [address] [facility] Worker: Lexis Martin MD #### GLYHGVirgen, FT4, LIPR, VD25 #### [place] [address] [facility] Worker: Boaz Cannon MD Erythrocyte distribution width (RBC) [Ratio] 12.8 % Normal 12.1-15.2 [facility] Comment on above: Performed By: #### T NICOLE TADEO, CDP #### [facility] [address] [place] [phone] [facility] Worker: Lexis Martin MD #### GLYHGB, FT4, LIPR, VD25 #### [place] [phone] [facility] Worker: Boaz Cannon MD Hematocrit (Bld) [Volume fraction] 39.8 % Normal 36.0-46.0 [facility] Comment on above: Performed By: #### T NICOLE TADEO, CDP #### [facility] [address] [place], [place] [phone] [facility] Worker: Lexis Martin MD #### GLYHGB, FT4, LIPR, VD25 #### [address] [phone] [facility] Worker: Boaz Cannon MD Hemoglobin (Bld) [Mass/Vol] 13.3 g/dL Normal 12.0-16.0 [facility] Comment on above: Performed By: #### T NICOLE TADEO, CDP #### [facility] [address] [place] [address] [facility] Worker: Lexis Martin MD #### GLYHGB, FT4, LIPR, VD25 #### [address] [phone] [facility] Worker: Boaz Cannon MD Immature granulocytes/100 WBC (Bld) 0 % Normal 0-5 [facility] Comment on above: Performed By: #### T NICOLE TADEO, CDP #### [facility] [address] [place], [place] [phone] [facility] Worker: Lexis Martin MD #### GLYHGB, FT4, LIPR, VD25 #### [address] [phone] [facility] Worker: Boaz Cannon MD Lymphocytes (Bld) [#/Vol] 2.32 10*3/uL Normal 1.00-4.80 [facility] Comment on above: Performed By: #### T NICOLE TADEO, CDP #### [facility] [address] [place] [address] [facility] Worker: Lexis Martin MD #### GLYHGB, FT4, LIPR, VD25 #### [address] [phone] [facility] Worker: Boaz Cannon MD Lymphocytes/100 WBC (Bld) 35 % Normal 15-40 [facility] Comment on above: Performed By: #### Coco TADEO CP, CDP #### [facility] [address] [place] [address] [facility] Worker: Lexis Martin MD #### GLYHGB, FT4, LIPR, VD25 #### [address] [phone] [facility] Worker: Boaz Cannon MD MCH (RBC) [Entitic mass] 28.2 pg Normal 26.0-34.0 [facility] Comment on above: Performed By: #### Ccoo TADEO CP, CDP #### [facility] [address] [place] [phone] [facility] Worker: Lexis Martin MD #### GLYHGVirgen, FT4, LIPR, VD25 #### [place] [phone] [facility] Worker: Boaz Cannon MD MCHC (RBC) [Mass/Vol] 33.4 g/dL Normal 31.0-37.0 [facility] Comment on above: Performed By: #### Coco TADEO CP, CDP #### [facility] [address] [place] [phone] [facility] Worker: Lexis Martin MD #### GLYMORELIA, FT4, LIPR, VD25 #### [place] [phone] [facility] Worker: Boaz Cannon MD MCV (RBC) [Entitic vol] 84.5 fL Normal 80.0-100.0 [facility] Comment on above: Performed By: #### Coco TADEO CP, CDP #### [facility] [address] [place] [phone] [facility] Worker: Lexis Martin MD #### GLYHGVirgen, FT4, LIPR, VD25 #### [address] [place], [place] [phone] [facility] Worker: Boaz Cannon MD Monocytes (Bld) [#/Vol] 0.38 10*3/uL Normal 0.00-1.00 [facility] Comment on above: Performed By: #### T SHX, CP, CDP #### [facility] [address] [place], [place] [phone] [facility] Worker: Lexis Martin MD #### GLYHGB, FT4, LIPR, VD25 #### [address] [phone] [facility] Worker: Boaz Cannon MD Monocytes/100 WBC (Bld) 6 % Normal 4-8 [facility] Comment on above: Performed By: #### T BROWNX, CP, CDP #### [facility] [address] [place] [phone] [facility] Worker: Lexis Martin MD #### GLYHGB, FT4, LIPR, VD25 #### [address] [phone] [facility] Worker: Boaz Cannon MD Neutrophil (Seg) 57 % Normal 47-[address] [facility] Comment on above: Performed By: #### T BROWNX, CP, CDP #### [facility] [address] [place] [phone] [facility] Worker: Lexis Martin MD #### GLYHGB, FT4, LIPR, VD25 #### [address] [phone] [facility] Worker: Boaz Cannon MD Platelet mean volume (Bld) [Entitic vol] 8.5 fL Normal 6.0-12.0 [facility] Comment on above: Performed By: #### T SHX, CP, CDP #### [facility] [address] [place] [address] [facility] Worker: Lexis Martin MD #### GLYHGB, FT4, LIPR, VD25 #### [place] [address] [place], [place] [phone] [facility] Worker: Boaz Cannon MD Platelets (Bld) [#/Vol] 338 10*3/uL Normal 140-450 [facility] Comment on above: Performed By: #### T NICOLE TADEO, CDP #### [facility] [address] [place], [place] [phone] [facility] Worker: Lexis Martin MD #### GLYHGB, FT4, LIPR, VD25 #### [address] [phone] [facility] Worker: Boaz Cannon MD RBC (Bld) [#/Vol] 4.71 10*6/uL Normal 4.00-5.20 [facility] Comment on above: Performed By: #### T NICOLE TADEO, CDP #### [facility] [address] [place], [place] [phone] [facility] Worker: Lexis Martin MD #### GLYHGVirgen, FT4, LIPR, VD25 #### [address] [phone] [facility] Worker: Boaz Cannon MD WBC (Bld) [#/Vol] 6.6 10*3/uL Normal 3.5-11.0 [facility] Comment on above: Performed By: #### T NICOLE TADEO, CDP #### [facility] [address] [place], [place] [phone] [facility] Worker: Lexis Martin MD #### GLYHGB, FT4, LIPR, VD25 #### [address] [phone] [facility] Worker: Boaz Cannon MD Comp Metabolic Profon 2024 Albumin [Mass/Vol] 4.1 g/dL Normal 3.5-5.2 [facility] Comment on above: Performed By: #### T BROWNX, CP, CDP #### [facility] [address] [place], [place] [phone] [facility] Worker: Lexis Martin MD #### GLYHGB, FT4, LIPR, VD25 #### [address] [phone] [facility] Worker: Boaz Cannon MD Albumin/Glob Ratio 1.4 Normal 1.0-2.5 [facility] Comment on above: Performed By: #### T NICOLE TADEO, CDP #### [facility] [address] [place] [address] [facility] Worker: Lexis Martin MD #### GLYHGB, FT4, LIPR, VD25 #### [address] [phone] [facility] Worker: Boaz Cannon MD Alkaline Phos 80 U/L Normal 35-104 [facility] Comment on above: Performed By: #### T NICOLE TADEO, CDP #### [facility] [address] [place], [place] [phone] [facility] Worker: Lexis Martin MD #### GLYHGB, FT4, LIPR, VD25 #### [address] [phone] [facility] Worker: Boaz Cannon MD ALT [Catalytic activity/Vol] 13 U/L Normal 5-33 [facility] Comment on above: Performed By: #### T NICOLE TADEO, CDP #### [facility] [address] [place], [place] [phone] [facility] Worker: Lexis Martin MD #### GLYHGB, FT4, LIPR, VD25 #### [address] [phone] [facility] Worker: Boaz Cannon MD Anion gap [Moles/Vol] 12 mmol/L Normal 9-17 [facility] Comment on above: Performed By: #### Coco TADEO CP, CDP #### [facility] [address] [place], [place] [phone] [facility] Worker: Lexis Martin MD #### GLYHGB, FT4, LIPR, VD25 #### [address] [phone] [facility] Worker: Boaz Cannon MD AST [Catalytic activity/Vol] 17 U/L Normal <32 [facility] Comment on above: Performed By: #### Coco TADEO CP, CDP #### [facility] [address] [place], [place] [phone] [facility] Worker: Lexis Martin MD #### GLYMORELIA, FT4, LIPR, VD25 #### [address] [address] [facility] Worker: Boaz Cannon MD Bilirubin [Mass/Vol] 0.4 mg/dL Normal 0.3-1.2 [facility] Comment on above: Performed By: #### Coco TADEO CP, CDP #### [facility] [address] [place], [place] [phone] [facility] Worker: Lexis Martin MD #### GLYHGVirgen, FT4, LIPR, VD25 #### [address] [phone] [facility] Worker: Boaz Cannon MD Calcium [Mass/Vol] 9.1 mg/dL Normal 8.6-10.4 [facility] Comment on above: Performed By: #### Coco TADEO CP, CDP #### [facility] [address] [place], [place] [phone] [facility] Worker: Lexis Martin MD #### GLYHGVirgen, FT4, LIPR, VD25 #### [address] [place] [address] [facility] Room Worker: Boaz Cannon MD Chloride [Moles/Vol] 100 mmol/L Normal 98-107 [facility] Comment on above: Performed By: #### T CARLYLE CP, CDP #### [facility] [address] [place] [address] [facility] Room Worker: Lexis Martin MD #### GLYHGB, FT4, LIPR, VD25 #### [facility] [address] [place] [address] Garn[facility] Room Worker: Boaz Cannon MD CO2 [Moles/Vol] 28 mmol/L Normal 20-31 [facility] Comment on above: Performed By: #### T CARLYLE CP, CDP #### [facility] [address] [place], [place] 0007[address] [facility] Worker: Lexis Martin MD #### GLYHGVirgen, FT4, LIPR, VD25 #### [place] [address] [place] [address] [facility] Room Worker: Boaz Cannon MD Creatinine [Mass/Vol] 1.1 mg/dL High 0.5-0.9 [facility] Comment on above: Performed By: #### T NICOLE TADEO, CDP #### [facility] [address] [place], [place] [phone] [facility] Worker: Lexis Martin MD #### GLYHGB, FT4, LIPR, VD25 #### [place] [address] [place], [place] [phone] [facility] Worker: Boaz Cannon MD GFR/1.73 sq M.predicted among non-blacks MDRD (S/P/Bld) [Vol rate/Area] 60 mL/min/{1.73_m2} Low >60 [facility] Comment on above: Result Comment: These results are not intended for use in patients <18 years of age. eGFR results are calculated without a race factor using the 2020 CKD-EPI equation. Careful clinical correlation is recommended, particularly when comparing to results calculated using previous equations. The CKD-EPI equation is less accurate in patients with extremes of muscle mass, extra-renal metabolism of creatine, excessive creatine ingestion, or following therapy that affects renal tubular secretion. Performed By: #### T NICOLE TADEO, CDP #### [facility] [address] [place], [place] [phone] [facility] Worker: Lexis Martin MD #### GLYHGB, FT4, LIPR, VD25 #### [address] [phone] [facility] Worker: Boaz Cannon MD Glucose [Mass/Vol] 111 mg/dL High 70-99 [facility] Comment on above: Performed By: #### T NICOLE TADEO, CDP #### [facility] [address] [place], [place] [phone] [facility] Room Worker: Lexis Martin MD #### GLYHGVirgen, FT4, LIPR, VD25 #### [address] [phone] [facility] Worker: Boaz Cannon MD Potassium [Moles/Vol] 4.0 mmol/L Normal 3.7-5.3 [facility] Comment on above: Performed By: #### T NICOLE TADEO, CDP #### [facility] [address] [place], [place] [phone] [facility] Room Worker: Lexis Martni MD #### GLYHGVirgen, FT4, LIPR, VD25 #### [address] [phone] [facility] Worker: Boaz Cannon MD Protein [Mass/Vol] 7.0 g/dL Normal 6.4-8.3 [facility] Comment on above: Performed By: #### T NICOLE TADEO, CDP #### [facility] [address] [place] [address] [facility] Room Worker: Lexis Martin MD #### GLYHGB, FT4, LIPR, VD25 #### [facility] [place], [place] [phone] Garn[facility] Room Worker: Boaz Cannon MD Sodium [Moles/Vol] 140 mmol/L Normal 135-144 [facility] Comment on above: Performed By: #### T NICOLE TADEO, CDP #### [facility] [address] [place], [place] [phone] [facility] Room Worker: Lexis Martin MD #### GLYHGB, FT4, LIPR, VD25 #### [facility] [address] [place] [address] [phone] [facility] Worker: Boaz Cannon MD Urea nitrogen [Mass/Vol] 11 mg/dL Normal 6-20 [facility] Comment on above: Performed By: #### Coco TADEO CP, CDP #### [facility] [address] [place] [address] [facility] Room Worker: Lexis Martin MD #### GLYHGVirgen, FT4, LIPR, VD25 #### [address] [phone] [facility] Worker: Boaz Cannon MD Comprehensive Metabolic Pane [facility] 08-09-2024 Albumin [Mass/Vol] 4.1 g/dL 3.5 - 5.2 g/dL [facility] Albumin/Globulin [Mass ratio] 1.4 {ratio} 1.0 - 2.5 [facility] ALP [Catalytic activity/Vol] 80 U/L 35 - 104 U/L [facility] ALT [Catalytic activity/Vol] 13 U/L 5 - 33 U/L [facility] Anion gap [Moles/Vol] 12 mmol/L 9 - 17 mmol/L [facility] AST [Catalytic activity/Vol] 17 U/L NINF - 32 U/L [facility] Bilirubin [Mass/Vol] 0.4 mg/dL 0.3 - 1 .2 mg/dL [facility] Calcium [Mass/Vol] 9.1 mg/dL 8.6 - 10. 4 mg/dL [facility] Chloride [Moles/Vol] 100 mmol/L 98 - 10 7 mmol/L [facility] CO2 [Moles/Vol] 28 mmol/L 20 - 31 mmol/L [facility] Creatinine [Mass/Vol] 1.1 mg/dL High 0.5 - 0.9 mg/dL [facility] Est, Glom Filt Rate 60 Low - PINF [facility] Comment on above: These results are not intended for use in patients <18 years of age. eGFR results are calculated without a race factor using the 2020 CKD-EPI equation. Careful clinical correlation is recommended, particularly when comparing to results calculated using previous equations. The CKD-EPI equation is less accurate in patients with extremes of muscle mass, extra-renal metabolism of creatine, excessive creatine ingestion, or following therapy that affects renal tubular secretion. Glucose [Mass/Vol] 111 mg/dL High 70 - 99 mg/dL [facility] Potassium [Moles/Vol] 4 mmol/L 3.7 - 5.3 mmol/L [facility] Protein [Mass/Vol] 7 g/dL 6.4 - 8.3 g/dL [facility] Sodium [Moles/Vol] 140 mmol/L 135 - 144 mmol/L [facility] Urea nitrogen [Mass/Vol] 11 mg/dL 6 - 20 mg/dL [facility] Hemoglobin A1Con 08-09-2024 Average glucose Estimated from glycated hemoglobin (Bld) [Mass/Vol] 117 mg/dL [facility] Comment on above: The ADA and AACC rec ommend providing the estimated average glucose result to permit better patient understanding of their HBA1c result. HbA1c (Bld) [Mass fraction] 5.7 % 4.0 - 6.0 % [facility] Glucose [Mass/Vol] 117 mg/dL Normal [facility] Comment on above: Result Comment: The ADA and AACC recommend providing the estimated average glucose result to permit better patient understanding of their HBA1c result. Performed By: #### T CARLYLE, CP, CDP #### [facility] [address] [place], [place] 136[address] [facility] Worker: Lexis Martin MD #### GLYHGB, FT4, LIPR, VD25 #### [facility] [address] [place], [place] [phone] [facility] Worker: Boaz Cannon MD HbA1c (Bld) [Mass fraction] 5.7 % Normal 4.0-6.0 [facility] Comment on above: Performed By: #### T SHX, NICOLE, CDP #### [facility] [address] [place], [place] [phone] [facility] Worker: Lexis Martin MD #### GLYHGB, FT4, LIPR, VD25 #### [facility] [address] [place], [place] [phone] [facility] Worker: Boaz Cannon MD Lipid Panelon 08-09-2024 Cholesterol [Mass/Vol] 204 mg/dL High 0 - 1 99 mg/dL [facility] Comment on above: Cholesterol Guidelines: <200 Desirable 200-240 Borderline >240 Undesirable Cholesterol in HDL [Mass/Vol] 53 mg/dL 40 - PINF mg/dL [facility] Comment on above: HDL Guidelines: <40 Undesirable 40-59 Borderline >59 Desirable Cholesterol in LDL [Mass/Vol] 135 mg/dL High 0 - 100 mg/dL [facility] Comment on above: LDL Guidelines: <100 Desirable 100-129 Near to/above Desirable 130-159 Borderline >159 Undesirable Direct (measured) LDL and calculated LDL are not interchangeable tests. Cholesterol in VLDL [Mass/Vol] 16 mg/dL 1 - 30 mg/dL [facility] Cholesterol.total/Chol esterol in HDL [Mass ratio] 3.8 {ratio} [facility] Interpretation and review of laboratory results Abnormal [facility] Triglyceride [Mass/Vol] 81 mg/dL NINF - 150 mg/dL [facility] [employer] Comment on above: Triglyceride Guidelines: <150 Desirable 150-199 Borderline 200-499 High >499 Very high Based on AHA Guidelines for fasting triglyceride, January 2012. Lipid Profileon 08-09-2024 Cholesterol [Mass/Vol] 204 mg/dL High 0-199 [facility] Comment on above: Result Comment: Cholesterol Guidelines: <200 Desirable 200-240 Borderline >240 Undesirable Performed By: #### T NICOLE TADEO, CDP #### [facility] [address] [place], [place] [id number] [place] Room Worker: Lexis Martin MD #### GLYHGB, FT4, LIPR, VD25 #### [facility] [address], [place] [id number] [place] Room Worker: Boaz Cannon MD Cholesterol in HDL [Mass/Vol] 53 mg/dL Normal >40 [facility] Comment on above: Result Comment: HDL Guidelines: <40 Undesirable 40-59 Borderline >59 Desirable Performed By: #### T NICOLE TADEO, CDP #### [facility] [address], [place] [id number] [place] Room Worker: Lexis Martin MD #### GLYHGB, FT4, LIPR, VD25 #### [facility] [address], [place] [address] [place] Room Worker: Boaz Cannon MD Cholesterol in LDL [Mass/Vol] 135 mg/dL High 0-100 [facility] Comment on above: Result Comment: LDL Guidelines: <100 Desirable 100-129 Near to/above Desirable 130-159 Borderline >159 Undesirable Direct (measured) LDL and calculated LDL are not interchangeable tests. Performed By: #### T NICOLE TADEO, CDP #### [facility] [address], [place] [id number] [place] Room Worker: Lexis Martin MD #### GLYHGB, FT4, LIPR, VD25 #### [facility] [address], [place] [id number] [place] Room Worker: Boaz Cannon MD Cholesterol in VLDL [Mass/Vol] 16 mg/dL Normal 1-30 [facility] Comment on above: Performed By: #### T NICOLE TADEO, CDP #### [facility] [address] [place], [place] [phone] [place] Room Worker: Lexis Martin MD #### GLYHGB, FT4, LIPR, VD25 #### [facility] [address], [place] [id number] [place] Room Worker: Boaz Cannon MD Cholesterol.total/Chol esterol in HDL [Mass ratio] 3.8 {ratio} Normal [facility] Comment on above: Performed By: #### T NICOLE TADEO, CDP #### [facility] [address] [place] [address] [place] Room Worker: Lexis Martin MD #### GLYHGB, FT4, LIPR, VD25 #### [facility], [place] [id number] Garn[place] Room Worker: Boaz Cannon MD Triglyceride [Mass/Vol] 81 mg/dL Normal <150 [facility] Comment on above: Result Comment: Triglyceride Guidelines: <150 Desirable 150-199 Borderline 200-499 High >499 Very high Based on AHA Guidelines for fasting triglyceride, January 2012. Performed By: #### T NICOLE TADEO, CDP #### [facility] [address] [place], [place] [id number] [place] Room Worker: Lexis Martin MD #### GLYHGB, FT4, LIPR, VD25 #### [facility] [address], [place] [id number] [place] Room Worker: Boaz Cannon MD No Panel Informationon 08-09 [facility] Interpretation and review of laboratory results Abnormal [facility] T4, Freeon 08-09-2024 Free T4 [Mass/Vol] 1.2 ng/dL 0.92 - 1. 68 ng/dL [facility] TSH reflex to FT4on 08-10-19 25 TSH Qn 4.25 m[IU]/L High [facility] TSH w/reflex to FT4on 2024 Thyroid Stim. Horm. 4.25 uIU/mL High 0.27-4.20 [facility] Comment on above: Performed By: #### T NICOLE TADEO, CDP #### [facility] [address], [place] [id number] [place] Room Worker: Lexis Martin MD #### GLYHGB, FT4, LIPR, VD25 #### [facility] [address], [place] [id number] Garn[place] Room Worker: Boaz Cannon MD Thyroxine, Freeon 08-09-2024 Thyroxine, Free 1.2 ng/dL Normal 0.92-1.68 [facility] Comment on above: Performed By: #### Coco TADEO CP, CDP #### [facility] [address] [place] [address] Garn[place] Room Worker: Lexis Martin MD #### GLYHGB, FT4, LIPR, VD25 #### [facility], [place] [id number] Garn[place] Room Worker: Boaz Cannon MD Vitamin D 25 Hydroxyon 08-09 25-hydroxyvitamin D3 [Mass/Vol] 41.8 ng/mL 30.0 - 100.0 ng/mL [facility] Comment on above: Reference Range: Vitamin D status Range Deficiency <20 ng/mL Mild Deficiency 20-30 ng/mL Sufficiency 30-100 ng/mL Toxicity >100 ng/mL Vitamin D 25 OHon 08-09-2024 Vitamin D 25 OH 41.8 ng/mL Normal 30.0-100.0 [facility] Comment on above: Result Comment: Reference Range: Vitamin D status Range Deficiency <20 ng/mL Mild Deficiency 20-30 ng/mL Sufficiency 30-100 ng/mL Toxicity >100 ng/mL Performed By: #### T NICOLE TADEO, CDP #### [facility] [address] [place] [address] Garn[place] Room Worker: Lexis Martin MD #### GLYHGB, FT4, LIPR, VD25 #### [facility] [address] [place] [address] Garnett Room Worker: Boaz Cannon MD CHEMISTRYOrdered By: SYSTEM SYSTEM on 03-04-2024 FTI 8.50 ng/dL Normal 5.90 - 13.10 ng/dL Remisol Chem T3RU 41.1 % Normal 32.0 - 48.4 % Remisol Chem T4 [Mass/Vol] 8.3 ug/dL Normal 4.6 - 9.1 mcg/dL Remisol Chem TSH Qn 5.01 m[IU]/L Normal 0.34 - 5.60 mcIU/mL Remisol Chem [facility] THYROID IIon 03-04-2024 FTI 8.5 ng/dL 5.90 - 13.10 ng/dL [facility] THYROTROPIN:ACNC:PT:SE R/PLAS:QN: 5.01 [facility] THYROXINE:MCNC:PT:SER/ PLAS:QN: 8.3 [facility] TRIIODOTHYRONINE RESIN UPTAKE (T3RU):NFR:PT:SER/PLAS :QN: 41.1 % 32.0 - 48.4 % [facility] Original Ordering Provider: MD Dolly ALBA [facility] Thyroid IIon 03-04-2024 TSH Qn 5.01 m[IU]/L Normal 0.34-5.60 [facility] Comment on above: Performed By: #### 1 [id number] #### [facility] [address] [place] [address] FTI 8.50 ng/dL Normal 5.90-13.10 [facility] Comment on above: Performed By: #### 1 [id number] #### [facility] [address] [place] [address] T4 [Mass/Vol] 8.3 microgram/dL Normal 4.6-9.1 [facility] Comment on above: Performed By: #### 1 [id number] #### [facility] [address] [place] [address] T3RU 41.1 % Normal 32.0-48.4 [facility] Comment on above: Performed By: #### 1 [id number] #### [facility] [address] [place] [address] Ambulatory Visit Summaryon 0 11-30-2023 Ambulatory Visit Summary Ambulatory Visit Summary KARI HUMPHREY :1970 Visit Date:11/30/2023 Ambulatory Visit Instructions Your Diagnosis COVID-19 BMI 37.0-37.9, adult Non-smoker Obesity Your Care Team Attending Physician - Seymour Waller DO Primary Care Physician - Seymour Waller DO This Is Your Medications List albuterol (Albuterol (Eqv-ProAir HFA) 90 mcg/inh inhalation aerosol) amitriptyline (amitriptyline 25 mg Tab) benzonatate (Tessalon 100 mg Cap) busPIRone (busPIRone 10 mg Tab) cetirizine (cetirizine 10 mg Tab) duloxetine (duloxetine 60 mg oral delayed release capsule) losartan (losartan 50 mg Tab) multivitamin rizatriptan (rizatriptan 10 mg Tab) semaglutide (Wegovy (0.5 mg dose) subcutaneous solution) Procedures Performed Complete thyroidectomy (01/26/2023), section, Hysterectomy, Tubal ligation. Discharge Vitals Heart Rate (Peripheral) 91 Blood Pressure 136/84 Height 169 cm Height 67 in Weight 106.4 kg Weight 234.08 lb BMI 37.25 What to do next Scheduled Follow-Up Appointments Monday 8:40 AM EST With: Seymour Waller DO Where: [facility] [place] [address] [place] [address]- You Need to Schedule the Following Appointments Follow Up with Seymour Waller DO, [facility] When: Comments: If needed Where: [address] [place] [address]- Medications What How Much When Why Instructions New semaglutide (Wegovy (0.5 mg dose) subcutaneous solution) 0.5 Milligram Subcutaneous Every week Obesity Refills: 1 Pickup at [facility] #[id number] Unchanged albuterol (Albuterol (Eqv-ProAir HFA) 90 mcg/ inh inhalation aerosol) 2 Puffs Inhalation Every 6 hours Wheeze Chronic recurrent bronchiolitis Unchanged amitriptyline (amitriptyline 25 mg Tab) 1 Tablets By Mouth Once a day (at bedtime) Unchanged benzonatate (Tessalon 100 mg Cap) 1 Capsules By Mouth 3 times a day COVID-19 virus infection Duration: 7 Days Unchanged busPIRone (busPIRone 10 mg Tab) See instructions take 1 tablet by mouth twice a day Unchanged cetirizine (cetirizine 10 mg Tab) 1 Tablets By Mouth Every day Unchanged duloxetine (duloxetine 60 mg oral delayed release capsule) 1 Capsules By Mouth At bedtime Unchanged losartan (losartan 50 mg Tab) 1 Tablets By Mouth Every day Unchanged multivitamin 1 tab By Mouth Every day Unchanged rizatriptan (rizatriptan 10 mg Tab) 1 Tablets By Mouth As Directed as needed for Migraine headache may repeat dose once in 2 hours No more than 8 doses per month Pharmacy Information [facility] #[id number]: [address], [place] [phone] Allergies hepatitis B adult vaccine (Fever) Problems Ongoing - Any problem that you are currently receiving treatment for. Cervicalgia Chronic migraine without aura Chronic recurrent bronchiolitis Complex posttraumatic stress disorder Essential hypertension Non-smoker Primary thyroid papillary adenocarcinoma Recurrent mild major depressive disorder co-occurrent with anxiety Seasonal allergic rhinitis Urine frequency Vitamin D deficiency Wheeze Patient Survey You may receive a survey via text or e-mail asking about your office visit. Please share your experience with us by completing your survey. We appreciate your feedback and thank you for choosing us for your care. Normal [facility] Family Medicine Office/Clini c Noteon 11-30-2023 Family Medicine Office/Clinic Note Family Medicine Office/Clinic Note Chief Complaint CC follow up HPI Staff Patient here for CC f/u - 11/26/23 Patient was seen at for COVID symptoms. COVID swab (positive) and chest X-ray completed. Benzonatate prescribed. Patient is concerned with continued chest and sinus congestion. - Patient would also like to discuss weight loss. [place]arack: cologaurd 09/19/23, Negative Fransico: 11/09/22 Pap: Hx Hysterectomy History of Present Illness Patient presents for convenient care followup for Covid-19 infection. Patient is continuing to have have Covid-19 symptoms reported from urgent care. She states she still has congestion, sore throat. She is taking ___OTC. She denies new exposures. She was provided benzonatate, states that this is ___. Patient wishes to return to work. Review of Systems PHQ Score Initial Depression Screen Score: 0 SCORE ROS - Provider Constitutional: yes fever, yes chills, no sweats, no weakness. Skin: no Jaundice, no rash, no lesions, no petechiae. ENMT: no ear pain, yes sore throat, yes congestion, no hoarseness. Respiratory: no shortness of breath, yes cough, no orthopnea, no wheezing. Cardiovascular: no chest pain, no palpitations, no edema. Gastrointestinal: no nausea, no vomiting, no diarrhea, no GI bleeding. Musculoskeletal: no joint pain Neurologic: no headache, no dizziness Physical Exam Vitals & Measurements HR: 91(Peripheral) BP: 136/84 SpO2: 97% HT: 67 in HT: 169 cm WT: 106.4 kg WT: 234.08 lb BMI: 37.25 Constitutional: well appearing, afebrile Head: Normocephalic, atraumatic Ears: Right canal Clear of obstruction, no evidence of erythema or induration, Left canal Clear of obstruction, no evidence of erythema or induration, Right tympanum clear, no erythema, no induration, Left tympanum clear, no erythema, no induration Nose: antrum clear, no erythema or discharge Throat: tonsils present without swelling or exudate, no pharyngeal erythema Neck: No noted lymphadenopathy CV: RRR, no murmurs Lungs: clear to auscultation anteriorly and posteriorly Abdomen: soft, non-tender, no guarding noted, bowel sounds clear to auscultation Skin: no rashes noted Assessment/Plan 1. COVID-19 (U07.1: COVID-19) Improving, no concerns for findings. Rapid test negative, she is cleared to return to work. Call with any new or worsening symptoms. 2. BMI 37.0-37.9, adult (Z68.37: Body mass index [BMI] 37.0-37.9, adult) Trialing Wegovy today for her, may be locked behind paywall. 3. Non-smoker (Z78.9: Other specified health status) Stable. Obesity (E66.9: Obesity, unspecified) As per #2. Ordered: semaglutide, 0.5 mg, SubCutaneous, qWeek, # 1 EA, Refills(s) 1, Pharmacy: [facility] #[id number], 169, cm, 11/30/23 7:52:00 EDT, Height/Length Dosing, 106.4, kg, 11/30/23 7:52:00 EDT, Weight Dosing Follow-up With When Contact Information Link Seymour SIMMONS, [facility] [address] [place] [id number]- Additional Instructions: If needed Problem List/Past Medical History Ongoing Cervicalgia Chronic migraine without aura Chronic recurrent bronchiolitis Complex posttraumatic stress disorder Essential hypertension Non-smoker Primary thyroid papillary adenocarcinoma Recurrent mild major depressive disorder co-occurrent with anxiety Seasonal allergic rhinitis Urine frequency Vitamin D deficiency Wheeze Historical No qualifying data Procedure/Surgical History Complete thyroidectomy (01/26/2023), section, Hysterectomy, Tubal ligation. Medications Albuterol (Eqv-ProAir HFA) 90 mcg/inh inhalation aerosol, 2 puff(s), Inhalation, q6hr amitriptyline 25 mg Tab, 25 mg= 1 tab(s), Oral, Once a day (at bedtime), 3 refills busPIRone 10 mg Tab, See Instructions cetirizine 10 mg Tab, 10 mg= 1 tab(s), Oral, Daily, 3 refills duloxetine 60 mg oral delayed release capsule, 60 mg= 1 cap(s), Oral, Bedtime, 3 refills losartan 50 mg Tab, 50 mg= 1 tab(s), Oral, Daily, 3 refills multivitamin, 1 tab, Oral, Daily rizatriptan 10 mg Tab, 10 mg= 1 tab(s), Oral, As Directed, PRN, 3 refills Tessalon 100 mg Cap, 100 mg= 1 cap(s), Oral, TID Wegovy (0.5 mg dose) subcutaneous solution, 0.5 mg, SubCutaneous, qWeek, 1 refills Allergies hepatitis B adult vaccine (Fever) Social History Alcohol - Denies Alcohol Use, 01/13/2023 Substance Abuse - Denies Substance Abuse, 01/13/2023 Tobacco - Denies Tobacco Use, 01/13/2023 Never (less than 100 in lifetime) Tobacco Use:. Never Smokeless Tobacco Use:. Household tobacco concerns: No., 11/30/2023 Family History Diabetes mellitus type 2: Mother and Father. Hypertension: Mother and Father. Primary malignant neoplasm of lung: Father. Immunizations Vaccine Date Status Comments influenza virus vaccine, inactivated - Not Given Postpone due to refusal influenza virus vaccine, inactivated - Not Given Contraindicated - Do not give SARS-CoV-2 mRNA (tozinameran 5y-11y) vac - Not Given Contraindicated - Do not give influenza virus vac (more content not included)... Normal [facility] Comment on above: Result Comment: Elec tronically Signed By: Seymour Waller DO\.br\Date and Time Signed: 11/30/23 08:09 EDT Ambulatory Visit Summaryon 0 11-26-2023 Ambulatory Visit Summary Ambulatory Visit Summary KARI HUMPHREY :1970 Visit Date:11/26/2023 Ambulatory Visit Instructions Your Diagnosis COVID-19 virus infection BMI 37.0-37.9, adult Your Care Team Attending Physician - SCOTT PECK JUAQUIN Primary Care Physician - Seymour Waller DO This Is Your Medications List albuterol (Albuterol (Eqv-ProAir HFA) 90 mcg/inh inhalation aerosol) amitriptyline (amitriptyline 25 mg Tab) benzonatate (Tessalon 100 mg Cap) busPIRone (busPIRone 10 mg Tab) cetirizine (cetirizine 10 mg Tab) duloxetine (duloxetine 60 mg oral delayed release capsule) losartan (losartan 50 mg Tab) multivitamin rizatriptan (rizatriptan 10 mg Tab) Procedures Performed Complete thyroidectomy (01/26/2023), section, Hysterectomy, Tubal ligation. Discharge Vitals Temperature (Temporal Artery) 36.7 ?C Heart Rate (Peripheral) 88 Blood Pressure 160/100 Height 169 cm Height 67 in Weight 106.3 kg Weight 233.86 lb BMI 37.22 What to do next Scheduled Follow-Up Appointments Monday 8:40 AM EST With: Seymour Waller DO Where: [facility] [place] [address] [place] [address] You Need to Complete the Following Urine Culture, Urine, Clean Catch, Routine collect, 11/26/23, Order for future visit, Nurse collect, Dysuria, Print Label By Order Location Medications What How Much When Why Instructions New benzonatate (Tessalon 100 mg Cap) 1 Capsules By Mouth 3 times a day COVID-19 virus infection Duration: 7 Days Pickup at [facility] #[id number] Unchanged albuterol (Albuterol (Eqv-ProAir HFA) 90 mcg/ inh inhalation aerosol) 2 Puffs Inhalation Every 6 hours Wheeze Chronic recurrent bronchiolitis Unchanged amitriptyline (amitriptyline 25 mg Tab) 1 Tablets By Mouth Once a day (at bedtime) Unchanged busPIRone (busPIRone 10 mg Tab) See instructions take 1 tablet by mouth twice a day Unchanged cetirizine (cetirizine 10 mg Tab) 1 Tablets By Mouth Every day Unchanged duloxetine (duloxetine 60 mg oral delayed release capsule) 1 Capsules By Mouth At bedtime Unchanged losartan (losartan 50 mg Tab) 1 Tablets By Mouth Every day Unchanged multivitamin 1 tab By Mouth Every day Unchanged rizatriptan (rizatriptan 10 mg Tab) 1 Tablets By Mouth As Directed as needed for Migraine headache may repeat dose once in 2 hours No more than 8 doses per month Pharmacy Information [facility] #[id number]: [address], [place] [id number] [phone] Allergies hepatitis B adult vaccine (Fever) Problems Ongoing - Any problem that you are currently receiving treatment for. Cervicalgia Chronic migraine without aura Chronic recurrent bronchiolitis Complex posttraumatic stress disorder Essential hypertension Non-smoker Primary thyroid papillary adenocarcinoma Recurrent mild major depressive disorder co-occurrent with anxiety Seasonal allergic rhinitis Urine frequency Vitamin D deficiency Wheeze Patient Survey You may receive a survey via text or e-mail asking about your office visit. Please share your experience with us by completing your survey. We appreciate your feedback and thank you for choosing us for your care. Normal [facility] Family Medicine Office/Clini c Noteon 11-26-2023 Family Medicine Office/Clinic Note Family Medicine Office/Clinic Note Chief Complaint cough, sore throat HPI Staff complaints of cough, sore throat. Onset: 2 days Characteristics: cough, sore throat, muscle pain, headache, exposed to covid, requesting covid test OTC tried: Advil, Tylenol, Delsym History of Present Illness Reviewed and agree with above documented HPI by medical oncology physician. Portions of this record may have been created with voice recognition artificial intelligence software, specifically [employer], [employer] and or [employer] [place]. Substitutions may have occurred due to the inherent limitations of voice recognition and artificial intelligence software. Patient is a 53-year-old female who presents to [facility] care, nonproductive cough, sore throat, muscle pain, body aches, headache, patient states she started with symptoms night, went out to dinner with her , with another couple, could have contracted COVID-19, patient states she is on home health care provider, to make sure she is not positive for COVID, states she has had COVID before the symptoms are similar to her previous episode, not concerned about influenza or strep pharyngitis, states she is able to eat and drink, has some discomfort swallowing, has decreased sense of taste and smell, patient states she has been having sinus congestion, sinus headache, states she is being worked up for asthma, has not been wheezing, states she is having coughing spells she has chest pressure, worse with coughing. She has less pressure, cough is worse at night, patient states she been taking [id number] Advil, Tylenol, and delsym any relief, states she has had fevers, controlled with [id number] medication, denies having any chills, nausea vomiting, difficulty swallowing, productive cough, chest pain, dyspnea exertion, weakness.. Review of Systems PHQ Score Initial Depression Screen Score: 0 SCORE Physical Exam Vitals & Measurements T: 36.7 ?C(Temporal Artery) HR: 88(Peripheral) BP: 160/100 SpO2: 95% HT: 67 in HT: 169 cm WT: 106.3 kg WT: 233.86 lb BMI: 37.22 General: Well developed, well nourished, in no acute distress. Patient does appears ill but not septic, no respiratory distress. Patient answers questions appropriately and in complete sentences, and follows commands appropriately. Head: Normocephalic/atrauma tic. Positive upper respiratory infection. Eyes: Pupils equal, round, and reactive to light. Conjunctivae and sclerae normal. Ears: Bilateral TMs and bilateral external canals are both within normal limits. Hearing is intact. Mouth: Mucous membranes moist. Normal oropharynx, and posterior pharynx without postnasal drip, erythema, exudates, lesions, or enlarged tonsils. No trismus. No difficulty swallowing. Neck: Neck supple. No masses or palpable cervical nodes. No mastoid tenderness. Lungs: Normal respiratory effort and clear to auscultation throughout. No wheezing, decreased breath sounds noted. Cardio: regular rate and rhythm, no murmur No chest wall deformity. No chest wall tenderness Extremity: Patient able to move all 4 extremities equally well any pain or weakness. Neurologic: Grossly normal Skin: No rashes, ulcerations, or suspicious lesions Lymph Nodes: no lad Mental Status: alert, active Assessment/Plan Patient agrees to COVID-19 swab. Discussed with patient she is positive for COVID-19, patient is concerned for possible starting pneumonia, agreeable to a chest x-ray. Chest x-ray ordered for any possible acute or thoracic process. No breathing treatments indicated at this time. Discussed with patient chest imaging findings read by the radiologist: No radiographic evidence of an acute disease in the chest . 53-year-old female presenting to [facility] care, for COVID-19 virus infection, symptoms started about 3 days ago, patient did not. But not septic, no respiratory distress, difficulty swallowing, wheezing, chest pain, dyspnea on exertion. Patient prefer a prescription for Tessalon Perles, instructed take [id number] ibuprofen and Tylenol as needed for fever and pain, drink plenty water stay hydrated, given a work excuse note, and follow-up with primary care provider. 1. COVID-19 virus infection (U07.1: COVID-19) See above Ordered: benzonatate, 100 mg = 1 cap(s), Oral, TID, X 7 day(s), # 21 cap(s), Refills(s) 0, Pharmacy: [facility] #[id number], 169, cm, 11/26/23 10:34:00 EDT, Height/Length Dosing, 106.3, kg, 11/26/23 10:34:00 EDT, Weight Dosing XR Chest 2 Views 2. BMI 37.0-37.9, adult (Z68.37: Body mass index [BMI] 37.0-37.9, adult) The standard range for ages 18 and older is >=18.5 and < 25 kg/m2. Your BMI today was above this range, this falls in the overweight to obese category and there are medical benefits to weight loss. We can offer counselling, referral, and/or medical support in addressing this problem. Your BMI and weight management will be followed at subsequent visits. Ordered: XR Chest 2 Views Orders: R (more content not included)... [facility] Comment on above: Result Comment: Elec tronically Signed By: SCOTT PECK, JUAQUIN\.br\Date and Time Signed: 11/26/23 11:46 EDT [facility] [place] [place] [place] [facility] Patient Letter [facility] [address] [place] [id number] November 26, 2023 KRAI HUMPHREY [address] [address] : 1970 Please excuse KARI HUMPHREY from work . Date and/or Time of Absence: From: 11/26/23 May return to work on: 12/01/23 Restrictions: None Comments: Please excuse due to an acute illness of COVID-19 virus infection. Provider [facility] [address] [place] [address] [place] [address] [facility] Patient Letter [facility] [place] Patient Letter [facility] [place] [address] [place] [id number] November 26, 2023 KARI CATHERINE [address] [id number] : 1970 Please excuse CATHERINEKARI from work . Date and/or Time of Absence: From: 11/26/23 May return to work on: 12/01/23 Restrictions: None Comments: Please excuse due to an acute illness. Provider Signature: [facility] [address] [place] [address] [facility] XR Chest 2 Viewson XR Chest 2 Views Exam Date/Time: 11/26/2023 10:55 EDT Reason for Exam: Cough Report IMPRESSION: NO RADIOGRAPHIC EVIDENCE OF ACTIVE DISEASE IN THE CHEST. CLINICAL INFORMATION: Cough COMPARISON: 2022. FINDINGS: Two views of the chest were obtained. Heart and mediastinum appear normal. The lungs appear clear. Visualized bony thorax and remainder of the chest appears unremarkable. Ordering Provider: JUAQUIN CHAVEZ FINAL REPORT Dictated: 11/26/2023 11:01 am Williams Ennis MD Signed (Electronic Signature): 11/26/2023 11:01 am Signed by: Williams Ennis MD Transcribed by: RASHEEDA Technologist: ELIZABETH Technical Comments Radiation Dose: Ka,r in mGy = na DAP = na Normal [facility] Lab Reportson 09-25-2023 Lab Reports [id number]. 00TIFF Normal [facility] Formson 09-05-2023 Forms [id number] .00TIFF Normal [facility] Ambulatory Visit Summaryon 0 09-04-2023 Ambulatory Visit Summary KARI HUMPHREY :1970 Visit Date:09/04/2023 Ambulatory Visit Instructions Your Diagnosis Essential hypertension Seasonal allergic rhinitis Chronic migraine without aura Vitamin D deficiency Primary thyroid papillary adenocarcinoma Recurrent mild major depressive disorder co-occurrent with anxiety Cervicalgia BMI 36.0-36.9,adult Non-smoker Your Care Team Attending Physician - Seymour Waller DO Primary Care Physician - Seymour Waller DO This Is Your Medications List albuterol (Albuterol (Eqv-ProAir HFA) 90 mcg/inh inhalation aerosol) amitriptyline (amitriptyline 25 mg Tab) busPIRone (busPIRone 10 mg Tab) cetirizine (cetirizine 10 mg Tab) duloxetine (duloxetine 60 mg oral delayed release capsule) losartan (losartan 50 mg Tab) multivitamin rizatriptan (rizatriptan 10 mg Tab) Procedures Performed Complete thyroidectomy (01/26/2023), section, Hysterectomy, Tubal ligation. Discharge Vitals Heart Rate (Peripheral) 88 Blood Pressure 130/84 Height 169 cm Height 67 in Weight 105.1 kg Weight 231.22 lb BMI 36.8 What to do next You Need to Schedule the Following Appointments Follow Up with Link [facility] When: Within 6 months Comments: 6 MONTHS ROUTINE FOLLOWUP Where: [address] [place] [address]- Medications What How Much When Why Instructions New busPIRone (busPIRone 10 mg Tab) 1 Tablets By Mouth 2 times a day Recurrent mild major depressive disorder co-occurrent with anxiety Refills: 1 Pickup at [facility] #[id number] Changed amitriptyline (amitriptyline 25 mg Tab) 1 Tablets By Mouth Once a day (at bedtime) Pickup at [facility] Changed cetirizine (cetirizine 10 mg Tab) 1 Tablets By Mouth Every day Pickup at [facility] Changed duloxetine (duloxetine 60 mg oral delayed release capsule) 1 Capsules By Mouth At bedtime Pickup at [facility] Changed losartan (losartan 50 mg Tab) 1 Tablets By Mouth Every day Pickup at [facility] Changed rizatriptan (rizatriptan 10 mg Tab) 1 Tablets By Mouth As Directed as needed for Migraine headache may repeat dose once in 2 hours No more than 8 doses per month Pickup at [facility] Unchanged albuterol (Albuterol (Eqv-ProAir HFA) 90 mcg/ inh inhalation aerosol) 2 Puffs Inhalation Every 6 hours Wheeze Chronic recurrent bronchiolitis Unchanged multivitamin 1 tab By Mouth Every day Pharmacy Information [facility]: [address] [place], [place] [phone] [facility] #[id number]: [address] [place], [place] [phone] Medications and Immunizations Administered Not Given influenza virus vaccine, inactivated, Postpone due to refusal Allergies hepatitis B adult vaccine (Fever) Problems Ongoing - Any problem that you are currently receiving treatment for. Cervicalgia Chronic migraine without aura Chronic recurrent bronchiolitis Complex posttraumatic stress disorder Essential hypertension Primary thyroid papillary adenocarcinoma Recurrent mild major depressive disorder co-occurrent with anxiety Seasonal allergic rhinitis Vitamin D deficiency Wheeze Patient Survey You may receive a survey via text or e-mail asking about your office visit. Please share your experience with us by completing your survey. We appreciate your feedback and thank you for choosing us for your care. Neris Varma [facility] Family Medicine Office/Clini c Noteon 09-04-2023 Family Medicine Office/Clinic Note Chief Complaint Establish Care HPI Staff Patient here to establish care Establish Care: History: Any previous diagnosis: HTN, Depression, Migraines, Allergies, Hx Thyroid Cancer and Vitamin D deficiency History of seeing any specialist: ENT (Dr. Cho) When was your last doctors visit: 04/15 Last provider: Dr. Waller Any recent labs: yes Health Maintenance UTD: Colonoscopy: DUE, ordered cologuard Mammogram: 11/09/22 Pelvic/Pap: Hx Hysterectomy Flu: declines Acute: Current issues/complaints: Patient would like to review recent x-rays and requesting refills. History of Present Illness Care History Patient known to me from prior practice at [facility]. Patient has psychiatric history managed by psychiatry with PTSD, FERNANDO, MDD. She is managed by PCP for HTN, migraines, allergic rhinitis, and vitamin D deficiency. She had surgery in 2022 for thryoid adenocarcinoma, managed by ENT. Patient is having increased anxiety at this time with work, not at home, no insomnia noted. She would like to resume her Buspar at this time. Social Patient is a 53-year-old female Patient is currently Patient has no smoking history. Patient has no use of marijuana. Patient has never abused drugs or prescriptions. Patient has no alcohol use. Preventative Care Last physical - Due in fall Last Labs - Due in fall Last Pap - [facility] Last Mammogram - 10/2022 Last Colonoscopy - discuss at next visit, deferred Patient has from records found to have the following information relevant to their care: - [facility] Review of Systems PHQ Score Initial Depression Screen Score: 2 SCORE ROS - Provider Constitutional: no fever, no chills Skin: no rash, no lesions ENMT: no ear pain, no sore throat, no congestion, no hoarseness. Respiratory: no shortness of breath, no cough, no wheezing. Cardiovascular: no chest pain, no palpitations, no edema. Gastrointestinal: no nausea, no vomiting, no diarrhea, Musculoskeletal: no back pain, no trauma, yes neck pain and knee pain Neurologic: yes headache, no dizziness, no numbness, no weakness. Psychiatric: no sleeping problems, no irritability, no mood swings/depression. Physical Exam Vitals & Measurements HR: 88(Peripheral) BP: 130/84 SpO2: 96% HT: 67 in HT: 169 cm WT: 105.1 kg WT: 231.22 lb BMI: 36.8 Assessment/Plan 1. Essential hypertension (I10: Essential (primary) hypertension) Controlled on intake, refilled medication. Recheck in 6 months, due for labs at that time. 2. Seasonal allergic rhinitis (J30.2: Other seasonal allergic rhinitis) Refilled supply today. 3. Chronic migraine without aura (G43.709: Chronic migraine without aura, not intractable, without status migrainosus) Refilled amitriptyline today. Labs in the fall. 4. Vitamin D deficiency (E55.9: Vitamin D deficiency, unspecified) Will check at next labs. 5. 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 She is due to follow up in 3 months. Will continue to monitor case. Her TSH remains controlled, no concerns. 6. Recurrent mild major depressive disorder co-occurrent with anxiety (F33.0: Major depressive disorder, recurrent, mild) We will adjunct current therapy with Buspar, has tolerated this in the past. Ordered: busPIRone, 10 mg = 1 tab(s), Oral, BID, # 60 tab(s), Refills(s) 1, Pharmacy: [facility] #[id number], 169, cm, 09/04/23 8:33:00 EDT, Height/Length Dosing, 105.1, kg, 09/04/23 8:33:00 EDT, Weight Dosing 7. Cervicalgia (M54.2: Cervicalgia) Stable, mild arthritis on x-ray but no nerve involvement. Recommended OTC Naproxen at this time. Recheck patient at followup in 6 months. Due for labs at next visit. 8. BMI 36.0-36.9,adult (Z68.36: Body mass index [BMI] 36.0-36.9, adult) The standard range for ages 18 and older is >=18.5 and < 25 kg/m2. Your BMI today was above this range, this falls in the overweight to obese category and there are medical benefits to weight loss. We can offer counselling, referral, and/or medical support in addressing this problem. Your BMI and weight management will be followed at subsequent visits. 9. Non-smoker (Z78.9: Other specified health status) Stable. Orders: amitriptyline, 25 mg = 1 tab(s), Oral, Once a day (at bedtime), # 90 tab(s), Refills(s) 3, Pharmacy: [facility], 169, cm, 09/04/23 8:33:00 EDT, Height/Length Dosing, 105.1, kg, 09/04/23 8:33:00 EDT, Weight Dosing cetirizine, 10 mg = 1 tab(s), Oral, Daily, # 90 tab(s), Refills(s) 3, Pharmacy: [facility], 169, cm, 09/04/23 8:33:00 EDT, Height/Length Dosing, 105.1, kg, 09/04/23 8:33:00 EDT, Weight Dosing duloxetine, 60 mg = 1 cap(s), Oral, Bedtime, # 90 cap(s), Refills(s) 3, Pharmacy: [facility], 169, cm, 09/04/23 8:33:00 EDT, Height/Length Dosing, 105.1, kg, 09/04/23 8:33:00 EDT, Weight Dosing losartan, 50 mg = 1 tab(s), Or (more content not included)... [facility] Comment on above: Result Comment: Elec tronically Signed By: Seymour Waller DO.malika\Date and Time Signed: 09/04/23 08:57 EDT Formson 09-04-2023 Forms [id number]. 00TIFF [facility] Forms [id number]#1. 00TIFF [facility] XR Knee Complete 4+ Views Le fton 09-01-2023 XR Knee Complete 4+ Views Left Exam Date/Time: 08/31/2023 16:35 EDT Reason for Exam: [id number] Report IMPRESSION: NO ACUTE OSSEOUS ABNORMALITY. EXAM: XR Knee Complete 4+ Views Left HISTORY: Knee pain TECHNIQUE: AP, lateral and oblique views of the knee obtained. COMPARISON: None available FINDINGS: No acute fracture or dislocation. Mild lateral and patellofemoral compartment degenerative changes. No knee joint effusion. Soft tissues are within normal limits. Ordering Provider: Seymour Waller FINAL REPORT Dictated: 09/01/2023 3:19 pm Disha Wade DO Signed (Electronic Signature): 09/01/2023 3:19 pm Signed by: Disha Wade DO Transcribed by: RASHEEDA Technologist: CASH Technical Comments Radiation Dose: Ka,r in mGy = na DAP = na Normal [facility] XR Knee Complete 4+ Views Art lemus 09-01-2023 XR Knee Complete 4+ Views Right Exam Date/Time: 08/31/2023 16:35 EDT Reason for Exam: [id number] Report IMPRESSION: NO ACUTE OSSEOUS ABNORMALITY. EXAM: XR Knee Complete 4+ Views Right HISTORY: Knee pain TECHNIQUE: AP, lateral and oblique views of the knee obtained. COMPARISON: None available FINDINGS: No acute fracture or dislocation. Joint spaces of the knee are maintained. No knee joint effusion. Soft tissues are within normal limits. Ordering Provider: Seymour Waller FINAL REPORT Dictated: 09/01/2023 3:18 pm Disha Wade DO Signed (Electronic Signature): 09/01/2023 3:18 pm Signed by: Disha Wade DO Transcribed by: RASHEEDA Technologist: CASH Technical Comments Radiation Dose: Ka,r in mGy = na DAP = na Normal [facility] XR Spine Cervical 4 or 5 Vie wson 09-01-2023 XR Spine Cervical 4 or 5 Views Exam Date/Time: 08/31/2023 16:37 EDT Reason for Exam: M54.2 Report IMPRESSION: DEGENERATIVE CHANGES OF THE CERVICAL SPINE. EXAMINATION: XR Spine Cervical 4 or 5 Views TECHNIQUE: AP, lateral, bilateral oblique, and odontoid views HISTORY: Posterior neck pain COMPARISONS: None available. FINDINGS: Straightening of the cervical lordosis. Only C1-C6 are well-visualized on the lateral view. Cervical vertebral body heights are maintained. Moderate intervertebral disc height loss at C4-C5 and C5-C6, levels where there are degenerative endplate changes with spurring. The lateral masses of C1 articulate symmetrically with C2. Atlantodental interval is preserved. No fracture or spondylolisthesis. Mild multilevel osseous neuroforaminal stenosis secondary to facet arthropathy and uncovertebral hypertrophy. Prevertebral soft tissues have a normal appearance. Ordering Provider: Layne Ayala FINAL REPORT Dictated: 09/01/2023 3:28 pm Disha Wade DO Signed (Electronic Signature): 09/01/2023 3:28 pm Signed by: Disha Wade DO Transcribed by: RASHEEDA Technologist: CASH Technical Comments Radiation Dose: Ka,r in mGy = na DAP = na Normal [facility] Consent for Treatmenton 050 Consent for Treatment [id number] .00TIFF Normal [facility] Consent for Treatment [id number] .00TIFF Normal [facility] Consent for Treatment [id number] .00TIFF [facility] Physician Orderon 08-31-2023 Physician Order [id number]# 1.00TIFF [facility] Physician Order [id number]# 1.00TIFF Normal [facility] Physician Order [id number]# 1.00TIFF Normal [facility] Physician Order [id number]# 1.00TIFF Normal [facility] TSHOrdered By: SYSTEM SYSTEM on 08-31-2023 TSH Qn 5.27 m[IU]/L Normal 0.34-5.60 [facility] Comment on above: Performed By: #### 2 [id number] #### [facility] [address] [place] [address] Ambulatory Visit Summaryon 0 06-26-2023 Ambulatory Visit Summary KARI HUMPHREY :1970 Visit Date:06/26/2023 Ambulatory Visit Instructions Your Diagnosis Flu-like symptoms Hypertension Your Care Team Attending Physician - Disha Haywood DO Primary Care Physician - Seymour Waller DO This Is Your Medications List amitriptyline (amitriptyline 25 mg Tab) duloxetine (duloxetine 60 mg oral delayed release capsule) fexofenadine (Мария) fluconazole (Diflucan 150 mg Tab) losartan (losartan 50 mg Tab) multivitamin rizatriptan (rizatriptan 5 mg oral tablet) Procedures Performed Complete thyroidectomy (01/26/2023), section, Hysterectomy, Tubal ligation. Discharge Vitals Temperature (Oral) 36.9 ?C Heart Rate (Peripheral) 98 Blood Pressure 140/90 Height 67 in Height 169 cm Weight 228.8 lb Weight 104 kg BMI 36.41 Medications What How Much When Why Instructions Unchanged amitriptyline (amitriptyline 25 mg Tab) 1 Tablets By Mouth Once a day (at bedtime) Unchanged duloxetine (duloxetine 60 mg oral delayed release capsule) 1 Capsules By Mouth At bedtime Unchanged fexofenadine (Мария) 15 Milligram By Mouth Every day Unchanged fluconazole (Diflucan 150 mg Tab) 1 Tablets By Mouth Once Acute bronchitis Unchanged losartan (losartan 50 mg Tab) 1 Tablets By Mouth Every day Unchanged multivitamin 1 tab By Mouth Every day Unchanged rizatriptan (rizatriptan 5 mg oral tablet) 1 Tablets By Mouth As Directed as needed for Migraine headache Allergies hepatitis B adult vaccine (Fever) Problems Ongoing - Any problem that you are currently receiving treatment for. Complex posttraumatic stress disorder Recurrent mild major depressive disorder co-occurrent with anxiety Patient Survey You may receive a survey via text or e-mail asking about your office visit. Please share your experience with us by completing your survey. We appreciate your feedback and thank you for choosing us for your care. Normal [facility] Family Medicine Office/Clini c Noteon 06-26-2023 Family Medicine Office/Clinic Note Chief Complaint Current pt cough, wheezing, fever, chillls, bodyaches, headache, fatigue HPI Staff 53 yo female here today with cough, wheezing Symptoms began 2 days ago Complains of cough, wheezing, fatigue, chills, right ear pain, headache Pt has been taking tylenol History of Present Illness HPI staff confirmed PCP: Dr Waller the patient lives in [place] but she wasn't sure if she'd follow Dr Waller to his new office Didn't like who she saw at the old office so she's decided to f/u with Dr. 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 Ever since having covid, she's developed a low threshold for wheezing it doesn't take much no formal diagnosis of asthma in the past she get's vaginal yeast infections when she take antibiotics May 24, 2023 - [facility] rapid strep was negative sore throat - zpack also given fluconazole and prednisone Mar 05, 2023 - [facility] noted that she recently had a partial thyroidectomy sore throat and congestion rapid strep, covid and flu negative treat symptoms Jan 03, 2023 - [facility] yellow jacket sting rx for famotidine Review of Systems PHQ Score Initial Depression Screen Score: 0 SCORE Physical Exam Vitals & Measurements T: 36.9 ?C(Oral) HR: 98(Peripheral) BP: 140/90 SpO2: 99% HT: 67 in HT: 169 cm WT: 104 kg WT: 228.8 lb BMI: 36.41 Constitutional: Vital signs reviewed; patient is well nourished, mild distress - patient is Afebrile Head: Atraumatic, normocephalic Neck: Trachea is midline Eye: EOMI, normal conjunctiva ENT: Moist oral mucosa Lungs: Clear to auscultation, non-labored respiration, inspiratory wheeze in the bilat base Heart: Normal rate and rhythm, normal peripheral perfusion Abd: Deferred : Deferred Extremities: Deferred Skin: Warm, dry Neurologic: Awake, alert and oriented, speech is normal Psychiatric: Cooperative, anxious Assessment/Plan 1. Wheeze (R06.2: Wheezing) Acute on chronic Mild exacerbation Wheeze on exam However, patient is able to speak in complete sentences and no obvious signs of decompensation Discussed the rationale for managing symptoms with prednisone 40mg and increasing rescue inhaler/ alb neb to 3 to 4 times a day F/u 1 week or PRN Ordered: albuterol, 2 puff(s), Inhalation, q6hr, 8.5 gm, Refill(s) 0, [facility] #[id number], 169, cm, 06/26/23 17:54:00 EST, Height/Length Dosing, 104, kg, 03/04/24 17:54:00 EST, Weight Dosing predniSONE, 40 mg = 2 tab(s), Oral, Daily, X 5 day(s), # 10 tab(s), Refills(s) 0, Pharmacy: [facility] #[id number], 169, cm, 06/26/23 17:54:00 EST, Height/Length Dosing, 104, kg, 06/26/23 17:54:00 EST, Weight Dosing Pulmonary Function Testing 2. Chronic recurrent bronchiolitis (J44.89: Other specified chronic obstructive pulmonary disease) Discussed rataionale for formal evaluation for asthma given that this has been worse since covid consider pulm referral she's aware that if the initial PFT is negative, we will refer for methacholine challenge message to PCP f/u PRN Ordered: albuterol, 2 puff(s), Inhalation, q6hr, 8.5 gm, Refill(s) 0, [facility] #[id number], 169, cm, 06/26/23 17:54:00 EST, Height/Length Dosing, 104, kg, 06/26/23 17:54:00 EST, Weight Dosing predniSONE, 40 mg = 2 tab(s), Oral, Daily, X 5 day(s), # 10 tab(s), Refills(s) 0, Pharmacy: [facility] #[id number], 169, cm, 06/26/23 17:54:00 EST, Height/Length Dosing, 104, kg, 06/26/23 17:54:00 EST, Weight Dosing Pulmonary Function Testing 3. Recurrent mild major depressive disorder co-occurrent with anxiety (F33.0: Major depressive disorder, recurrent, mild) noted no change to meds today f/u with PCP 4. Flu-like symptoms (R68.89: Other general symptoms and signs) negative for flu today Ordered: Influenza Type A&B POC 99577 Hypertension (I10: Essential (primary) hypertension) continue losartan Ordered: Most recent diastolic blood pressure <80 mm Hg 3078F Systolic BP <130 mm Hg (Most Recent) 3074F Total time spent TODAY preparing the chart, face to face with the patient and family and time spent documenting, reviewing, and ordering tests was 30 mins. Patient was counseled on the above diagnosis and treatment, all questions were answered and patient agrees to adhere to the plan above. Risk and benefits of appropriate procedures and medications were reviewed as well with patient, who voiced understanding and agreement. Patient was counseled on smoking cessation and/or continuing to abstain from nicotine/tobacco products as appropriate based on history; as smoking/nicotine can contribute to increased pain overall and decreased wound healing. Patient counseled on maintaining a healthy BMI as part of the total treatment of their pain and to reduce stress/strain on joints. Patient invited to return here for an additional appt when needed or they may call to speak with the nurse with any questions or concerns that arise. Follow-up No qualifying data available Problem L (more content not included)... Normal [facility] Comment on above: Result Comment: Elec tronically Signed By: Disha Haywood DO.malika\Date and Time Signed: 06/26/23 18:41 EST Grp A Strp PCRon 05-25-2023 Grp A Strp Intrl Ctrl Pass Normal [facility] Comment on above: Performed By: #### 1 [id number] #### [facility] [address] [id number] S. pyogenes DNA MEJIA+probe Ql (Throat) Negative Normal [facility] Comment on above: Result Comment: Test ing performed using DNA amplification. Performed By: #### 1 [id number] #### [facility] [address] [place] [address] Family Medicine Office/Clini c Noteon 05-24-2023 Family Medicine Office/Clinic Note Chief Complaint cough, congestion, rash HPI Staff 53 year old female here for sore throat, cough, and rash on chest. Hx bronchitis about a month ago. Last Covid test at home 4 days ago- negative. States she is not concerned for flu or strep. Symptoms started- 5 days ago Headache- yes Body aches- yes Earache- popping Runny/stuffy nose- stuffy Problem with Smell- no Problem with Taste- no Sore throat- yes Cough- yes Scratchy tickly throat- no Chest symptoms- no Fever/chills- yes GI symptoms- no COVID exposure- no Treatment- Ibuprofen History of Present Illness I have reviewed and verified the staff HPI to be accurate for this encounter. Portions of this record have been created with voice recognition software. Occasional wrong-word or ?[id number]? substitutions may have occurred due to the inherent limitations of voice recognition software. 53-year-old female with history of hypertension presents to [facility] today with chief complaint of sore throat, cough and rash on chest. Patient states at the beginning of the month she was treated for bronchitis at that time and was prescribed albuterol inhaler as well as Zithromax. She denies any history of asthma but states she has been using the albuterol inhaler over the past couple of days with this recent illness. Denies smoking history. Patient states she has completed a home COVID-19 test that was negative she took that approximately 4 days ago symptom onset x 5 days ago. Patient states she does not have any specific concerns for influenza or strep pharyngitis and denies any recent sick contacts. 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 She does stated onset of symptoms 5 days ago she did have headache body aches runny stuffy nose sore throat and cough. States the cough is mostly dry and nonproductive but she has noticed wheezing at nighttime. She denies any chest pain shortness of breath or difficulty breathing with coughing. She states she did feel chilled but denies any measured temp. She denies any abdominal pain nausea vomiting or diarrhea. She has been taking peop-trp-[id number] ibuprofen as needed for body aches and headache with some improvement otherwise has not tried any modifying factors. She has no other concerns at this time. Review of Systems PHQ Score Initial Depression Screen Score: 0 SCORE ROS negative unless otherwise stated in HPI. Physical Exam Vitals & Measurements T: 36.4 ?C(Oral) HR: 104(Peripheral) BP: 120/88 SpO2: 95% HT: 67 in HT: 169 cm WT: 100.9 kg WT: 221.98 lb BMI: 35.33 General: Pleasant obese female, no acute distress ill-appearing however not septic appearing. Eyes: Bilateral conjunctiva within normal limits no injection Ears: Bilateral TMs are within normal limits no erythema or bulging. Bilateral external auditory canals are within normal limits no erythema or edema. Nose: mild nasal mucosa inflammation and edema bilateral swollen boggy nasal turbinates. No active drainage deformity or lesion. Mouth: Moist mucous membranes. Uvula is midline. Tonsils are absent however patient has a very erythematous posterior oropharynx no oral ulcerations or lesions. No trismus or drooling. Neck: Palpable anterior cervical nodes bilaterally Lungs: Patient has faint expiratory wheeze throughout bilateral lung emmanuel on examination. Symmetrical expansion. Patient is not tachypneic. No rhonchi or crackles noted on examination. No signs of respiratory distress. Cardio: S1, S2, regular rhythm. No murmurs gallops or rubs. Abdomen: not assessed Musculoskeletal: not assessed Extremity: not assessed Neurologic: not assessed Skin: No rashes, ulcerations, or suspicious lesions Mental Status: Alert and oriented x3. Normal mood and affect Assessment/Plan I spoke with patient in regards to her symptoms. A rapid strep test was completed in office which is negative at this time. Will send for culture to confirm that she does not have strep A. Patient had completed a home COVID-19 test and was offered a repeat rapid COVID and rapid influenza testing today however declines at this time. Discussed with patient in regards to her expiratory wheezing on examination that we would treat for acute bronchitis with albuterol inhaler 1 to 2 puffs every 4-6 hours as needed for wheezing in addition to prednisone, steroid 40 mg daily x 5 days as well as Zithromax, antibiotic in which patient is understanding and agreement. Patient does request a prescription for Diflucan as she typically does get vaginal yeast infections following use of antibiotics. Patient is a scheduled follow-up with primary care provider in 3 to 5 days. May return if needed. Would seek ER for reevaluation if you develop any chest pain shortness of breath difficulty breathing or for any severely worsening symptoms in which patient agrees and understands plan. 1. (more content not included)... Normal [facility] Comment on above: Result Comment: Elec tronically Signed By: Rehan PECK, Rex Patel\.br\Date and Time Signed: 05/24/23 21:31 EST Patient Educationon 05-24-19 24 Patient Education Nutrition BMI for Adults What is BMI? Body mass index (BMI) is a number that is calculated from a person's weight and height. BMI can help estimate how much of a person's weight is composed of fat. BMI does not measure body fat directly. Rather, it is an alternative to procedures that directly measure body fat, which can be difficult and expensive. BMI can help identify people who may be at higher risk for certain medical problems. What are BMI measurements used for? BMI is used as a screening tool to identify possible weight problems. It helps determine whether a person is obese, overweight, a healthy weight, or underweight. BMI is useful for: ? Identifying a weight problem that may be related to a medical condition or may increase the risk for medical problems. ? Promoting changes, such as changes in diet and exercise, to help reach a healthy weight. BMI screening can be repeated to see if these changes are working. How is BMI calculated? BMI involves measuring your weight in relation to your height. Both height and weight are measured, and the BMI is calculated from those numbers. This can be done either in [place] or metric measurements. Note that charts and online BMI calculators are available to help you find your BMI quickly and easily without having to do these calculations yourself. To calculate your BMI in [place] measurements: 1. Measure your weight in pounds (lb). 2. Multiply the number of pounds by 703. ? For example, for a person who weighs 180 lb, multiply that number by 703, which equals 126,540. 3. Measure your height in inches. Then multiply that number by itself to get a measurement called inches squared. ? For example, for a person who is 70 inches tall, the inches squared measurement is 70 inches x 70 inches, which equals 4,900 inches squared. 4. Divide the total from step 2 (number of lb x 703) by the total from step 3 (inches squared): 126,540 ? 4,900 = 25.8. This is your BMI. To calculate your BMI in metric measurements: 1. Measure your weight in kilograms (kg). 2. Measure your height in meters (m). Then multiply that number by itself to get a measurement called meters squared. ? For example, for a person who is 1.75 m tall, the meters squared measurement is 1.75 m x 1.75 m, which is equal to 3.1 meters squared. 3. Divide the number of kilograms (your weight) by the meters squared number. In this example: 70 ? 3.1 = 22.6. This is your BMI. What do the results mean? BMI charts are used to identify whether you are underweight, normal weight, overweight, or obese. The following guidelines will be used: ? Underweight: BMI less than 18.5. ? Normal weight: BMI between 18.5 and 24.9. ? Overweight: BMI between 25 and 29.9. ? Obese: BMI of 30 or above. Keep these notes in mind: ? Weight includes both fat and muscle, so someone with a muscular build, such as an athlete, may have a BMI that is higher than 24.9. In cases like these, BMI is not an accurate measure of body fat. ? To determine if excess body fat is the cause of a BMI of 25 or higher, further assessments may need to be done by a health care provider. ? BMI is usually interpreted in the same way for men and women. Where to find more information For more information about BMI, including tools to quickly calculate your BMI, go to these websites: ? Centers for Disease Control and Prevention: www.cdc.gov ? [place] [employer]: www.heart.org ? National Heart, Lung, and Blood Hunter: www.nhlbi.nih.gov Summary ? Body mass index (BMI) is a number that is calculated from a person's weight and height. ? BMI may help estimate how much of a person's weight is composed of fat. BMI can help identify those who may be at higher risk for certain medical problems. ? BMI can be measured using [place] measurements or metric measurements. ? BMI charts are used to identify whether you are underweight, normal weight, overweight, or obese. This information is not intended to replace advice given to you by your health care provider. Make sure you discuss any questions you have with your health care provider. Document Revised: 01/01/2020 Document Reviewed: 11/08/2019 [employer] Patient Education ? 2022 [employer]. Pulmonary Medicine Acute Bronchitis, Adult Acute bronchitis is sudden inflammation of the main airways (bronchi) that come off the windpipe (trachea) in the lungs. The swelling causes the airways to get smaller and make more mucus than normal. This can make it hard to breathe and can cause coughing or noisy breathing (wheezing). Acute bronchitis may last several weeks. The cough may last longer. Allergies, asthma, and exposure to smoke may make the condition worse. What are the causes? This condition can be caused by germs and by substances that irritate the lungs, including: ? Cold and flu viruses. The most common cause of this condition is (more content not included)... Normal [facility] Grp A Strp PCRon 03-06-2023 Grp A Strp Intrl Ctrl Pass Normal [facility] Comment on above: Performed By: #### 1 [id number] #### [facility] [address] [place] [address] S. pyogenes DNA MEJIA+probe Ql (Throat) Negative Normal [facility] Comment on above: Result Comment: Test ing performed using DNA amplification. Performed By: #### 1 [id number] #### [facility] [address] [place] [address] Ambulatory Visit Summaryon 1 05-05-2022 Ambulatory Visit Summary KARI HUMPHREY :1970 Visit Date:03/05/2023 Ambulatory Visit Instructions Your Diagnosis Viral URI with cough Sore throat BMI 35.0-35.9,adult Your Care Team Attending Physician - Rex Van PA-C Primary Care Physician - Seymour Waller DO This Is Your Medications List Contact prescribing physician if questions or concerns amitriptyline (amitriptyline 25 mg Tab) duloxetine (duloxetine 60 mg oral delayed release capsule) fexofenadine (Мария) losartan (losartan 50 mg Tab) multivitamin rizatriptan (rizatriptan 5 mg oral tablet) Procedures Performed Complete thyroidectomy (01/26/2023), section, Hysterectomy, Tubal ligation. Discharge Vitals Temperature (Oral) 37 ?C Heart Rate (Peripheral) 83 Blood Pressure 124/72 Height 167 cm Height 66 in Weight 98.7 kg Weight 217.14 lb BMI 35.39 What to do next You Need to Schedule the Following Appointments Follow Up with Seymour Waller DO When: Where: [address] [place] [address]- Medications What How Much When Instructions Unchanged amitriptyline (amitriptyline 25 mg Tab) 1 Tablets By Mouth Once a day (at bedtime) Contact prescribing physician if questions or concerns Unchanged duloxetine (duloxetine 60 mg oral delayed release capsule) 1 Capsules By Mouth At bedtime Contact prescribing physician if questions or concerns Unchanged fexofenadine (Мария) 15 Milligram By Mouth Every day Contact prescribing physician if questions or concerns Unchanged losartan (losartan 50 mg Tab) 1 Tablets By Mouth Every day Contact prescribing physician if questions or concerns Unchanged multivitamin 1 tab By Mouth Every day Contact prescribing physician if questions or concerns Unchanged rizatriptan (rizatriptan 5 mg oral tablet) 1 Tablets By Mouth As Directed as needed for Migraine headache Contact prescribing physician if questions or concerns Medications and Immunizations Administered Not Given influenza virus vaccine, inactivated, Contraindicated - Do not give SARS-CoV-2 mRNA (tozinameran 5y-11y) vac, Contraindicated - Do not give Allergies hepatitis B adult vaccine (Fever) Problems Ongoing - Any problem that you are currently receiving treatment for. Complex posttraumatic stress disorder Recurrent mild major depressive disorder co-occurrent with anxiety Patient Survey You may receive a survey via text or e-mail asking about your office visit. Please share your experience with us by completing your survey. We appreciate your feedback and thank you for choosing us for your care. Education Materials BMI for Adults What is BMI? Body mass index (BMI) is a number that is calculated from a person's weight and height. BMI can help estimate how much of a person's weight is composed of fat. BMI does not measure body fat directly. Rather, it is an alternative to procedures that directly measure body fat, which can be difficult and expensive. BMI can help identify people who may be at higher risk for certain medical problems. What are BMI measurements used for? BMI is used as a screening tool to identify possible weight problems. It helps determine whether a person is obese, overweight, a healthy weight, or underweight. BMI is useful for: ? Identifying a weight problem that may be related to a medical condition or may increase the risk for medical problems. ? Promoting changes, such as changes in diet and exercise, to help reach a healthy weight. BMI screening can be repeated to see if these changes are working. How is BMI calculated? BMI involves measuring your weight in relation to your height. Both height and weight are measured, and the BMI is calculated from those numbers. This can be done either in [place] or metric measurements. Note that charts and online BMI calculators are available to help you find your BMI quickly and easily without having to do these calculations yourself. To calculate your BMI in [place] measurements: 1. Measure your weight in pounds (lb). 2. Multiply the number of pounds by 703. ? For example, for a person who weighs 180 lb, multiply that number by 703, which equals 126,540. 3. Measure your height in inches. Then multiply that number by itself to get a measurement called inches squared. ? For example, for a person who is 70 inches tall, the inches squared measurement is 70 inches x 70 inches, which equals 4,900 inches squared. 4. Divide the total from step 2 (number of lb x 703) by the total from step 3 (inches squared): 126,540 ? 4,900 = 25.8. This is your BMI. To calculate your BMI in metric measurements: 1. Measure your weight in kilograms (kg). 2. Measure your height in meters (m). Then multiply that number by itself to get a measurement called meters squared. ? For example, for a person who is 1.75 m tall, the meters squared measurement is (more content not included)... Normal [facility] Family Medicine Office/Clini c Noteon 03-05-2023 Family Medicine Office/Clinic Note Chief Complaint EST sore throat cough and congestion HPI Staff 52 year old female presents with cough, congestion and sore throat onset 3 days ago states she had half of her thyroid removed about 6 weeks ago for thyroid cancer History of Present Illness I have reviewed and verified the staff HPI to be accurate for this encounter. Portions of this record have been created with voice recognition software. Occasional wrong-word or ?[id number]-[id number]? substitutions may have occurred due to the inherent limitations of voice recognition software. 52 yo female with history of hypertension and recent partial thyroidectomy x6 weeks ago presents with cc of sore throat and congestion. 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 She states she developed cough congestion on Monday is just states felt rundown. She states that yesterday she developed sore throat and when she woke this morning and feels like she has razor blades in her throat. She denies any known strep exposure. Denies any known COVID or influenza exposure that she is aware of. She states minor cough which is dry and nonproductive. She denies any chest pain shortness of breath or difficulty breathing with cough. States lots of sinus congestion pressure and pressure in both of her ears. States initially she had body aches which have resolved and states with sinus congestion she does have headache. She denies any nausea vomiting diarrhea or abdominal pain. She has no other concerns at this time. Review of Systems PHQ Score Initial Depression Screen Score: 0 SCORE Initial Depression Screen Score: 0 SCORE ROS negative unless otherwise stated in HPI. Physical Exam Vitals & Measurements T: 37 ?C(Oral) HR: 83(Peripheral) BP: 124/72 SpO2: 96% HT: 66 in HT: 167 cm WT: 98.7 kg WT: 217.14 lb BMI: 35.39 General: Pleasant obese female, no acute distress, nontoxic-appearing Eyes: Bilateral conjunctiva within normal limits no injection Ears: Bilateral tympanic membranes within normal limits no erythema or bulging. Clear fluid behind bilateral TMs. Bilateral external auditory canals are within normal limits no erythema or edema. Nose: mild nasal mucosa inflammation and edema swollen nasal turbinates bilaterally. No acute erythema no active drainage no deformity or lesion Mouth: Moist slight erythema without exudates. No signs of peritonsillar abscess. No trismus or drooling. Sore throat Neck: no adenopathy Lungs: Lung sounds are clear bilaterally. No wheezing rhonchi or crackles on exam. Cardio: S1, S2, regular rhythm. No murmurs gallops or rubs. Abdomen: not assessed Musculoskeletal: not assessed Extremity: not assessed Neurologic: not assessed Skin: No rashes, ulcerations, or suspicious lesions Mental Status: Alert and oriented x3. Normal mood and affect Assessment/Plan Rapid strep, rapid COVID-19 and rapid influenza are all negative. I updated patient in regards to these negative results. Discussed that her symptoms are most likely viral in nature which she may have cough or cold-like symptoms anywhere from 7 to 14 days in duration. Fluid behind both of her tympanic membranes I discussed with patient Flonase twice daily x7 days duration. Patient states that Flonase has caused her worse ear pain or pressure and cause ear infections in the past and he is not sure why discussed with patient that we could try Nasacort or it which patient is in agreement with. We will refrain from use of any nasal decongestants with patient's history of hypertension. Patient will follow closely with primary care provider and or return if needed for any worsening or concerning symptoms in which patient agrees and understands plan. 1. Viral URI with cough (J06.9: Acute upper respiratory infection, unspecified) Discussed exam and hx are consistent with viral illness. Advised of typical duration. Discussed antibiotics unfortunately do not treat viral illnesses, it will take time to run course- usually 7-14 days. Fluids/rest encouraged, PRN tylenol/ibuprofen for any pain. May use nasacort nasal spray once daily for symptomatic tx. Follow up with PCP if not improving over next 7-10 days or significantly worsening symptoms. Patient verbalized understanding of tx plan. 2. Sore throat (J02.9: Acute pharyngitis, unspecified) Rapid strep -. Given exam will send strep cx to confirm. No news is good news, if you do not hear from us, strep culture was Negative. If any GAS growth, will rx appropriate antibiotic and notify you. Discussed otherwise consistent with viral illness, typical duration 7-14 days. Fluids/rest, PRN tylenol/ibuprofen for pain and/or fever. May use salt water gargles and otc lozenges for pain. Fu with PCP if cx negative and not improving over next 3-5 days. Seek medical attention immediately for any increased difficulty swallowing, opening mouth, or difficulty managing oral secretions. Patient verbalized understanding of tx plan. Ordered: Group A Strep by PCR Influen (more content not included)... Normal [facility] Comment on above: Result Comment: Elec tronically Signed By: Rehan PECK, Rex Patel\.br\Date and Time Signed: 03/05/23 16:53 EST Patient Educationon 03-05-20 23 Patient Education BMI for Adults What is BMI? Body mass index (BMI) is a number that is calculated from a person's weight and height. BMI can help estimate how much of a person's weight is composed of fat. BMI does not measure body fat directly. Rather, it is an alternative to procedures that directly measure body fat, which can be difficult and expensive. BMI can help identify people who may be at higher risk for certain medical problems. What are BMI measurements used for? BMI is used as a screening tool to identify possible weight problems. It helps determine whether a person is obese, overweight, a healthy weight, or underweight. BMI is useful for: ? Identifying a weight problem that may be related to a medical condition or may increase the risk for medical problems. ? Promoting changes, such as changes in diet and exercise, to help reach a healthy weight. BMI screening can be repeated to see if these changes are working. How is BMI calculated? BMI involves measuring your weight in relation to your height. Both height and weight are measured, and the BMI is calculated from those numbers. This can be done either in [place] or metric measurements. Note that charts and online BMI calculators are available to help you find your BMI quickly and easily without having to do these calculations yourself. To calculate your BMI in [place] measurements: 1. Measure your weight in pounds (lb). 2. Multiply the number of pounds by 703. ? For example, for a person who weighs 180 lb, multiply that number by 703, which equals 126,540. 3. Measure your height in inches. Then multiply that number by itself to get a measurement called inches squared. ? For example, for a person who is 70 inches tall, the inches squared measurement is 70 inches x 70 inches, which equals 4,900 inches squared. 4. Divide the total from step 2 (number of lb x 703) by the total from step 3 (inches squared): 126,540 ? 4,900 = 25.8. This is your BMI. To calculate your BMI in metric measurements: 1. Measure your weight in kilograms (kg). 2. Measure your height in meters (m). Then multiply that number by itself to get a measurement called meters squared. ? For example, for a person who is 1.75 m tall, the meters squared measurement is 1.75 m x 1.75 m, which is equal to 3.1 meters squared. 3. Divide the number of kilograms (your weight) by the meters squared number. In this example: 70 ? 3.1 = 22.6. This is your BMI. What do the results mean? BMI charts are used to identify whether you are underweight, normal weight, overweight, or obese. The following guidelines will be used: ? Underweight: BMI less than 18.5. ? Normal weight: BMI between 18.5 and 24.9. ? Overweight: BMI between 25 and 29.9. ? Obese: BMI of 30 or above. Keep these notes in mind: ? Weight includes both fat and muscle, so someone with a muscular build, such as an athlete, may have a BMI that is higher than 24.9. In cases like these, BMI is not an accurate measure of body fat. ? To determine if excess body fat is the cause of a BMI of 25 or higher, further assessments may need to be done by a health care provider. ? BMI is usually interpreted in the same way for men and women. Where to find more information For more information about BMI, including tools to quickly calculate your BMI, go to these websites: ? Centers for Disease Control and Prevention: www.cdc.gov ? [place] [employer]: www.heart.org ? National Heart, Lung, and Blood Hunter: www.nhlbi.nih.gov Summary ? Body mass index (BMI) is a number that is calculated from a person's weight and height. ? BMI may help estimate how much of a person's weight is composed of fat. BMI can help identify those who may be at higher risk for certain medical problems. ? BMI can be measured using [place] measurements or metric measurements. ? BMI charts are used to identify whether you are underweight, normal weight, overweight, or obese. This information is not intended to replace advice given to you by your health care provider. Make sure you discuss any questions you have with your health care provider. Document Revised: 01/01/2020 Document Reviewed: 11/08/2019 [employer] Patient Education ? 2022 [employer]. Infectious Disease Rapid Strep Test Why am I having this test? A rapid strep test is used to check for strep throat. Strep throat is a bacterial infection caused by the bacteria Streptococcus pyogenes. A rapid strep test is the quickest way to check if these bacteria are causing your sore throat. You may have this test if: ? You have throat pain or neck swelling and tenderness. ? You have a fever. ? You have a red throat with yellow or white spots. ? You experience loss of appetite. ? You have trouble breathing or painful swallowing. ? You have a rash. ? You are dehydrated. The test can be done at your health care provider's office. Results are usually ready in about 20 minutes. (more content not included)... Normal [facility] CHEMISTRYOrdered By: SYSTEM SYSTEM on 01-13-2023 Calcium [Mass/Vol] 9.5 mg/dL Normal 8.9 - 11. 1 mg/dL [facility] Remisol Magnesium [Mass/Vol] 2.1 mg/dL Normal 1.3 - 2 .4 mg/dL [facility] Phosphate [Mass/Vol] 4.7 mg/dL High 1.9 - 4 .6 mg/dL [facility] TSH Qn 2.10 m[IU]/L Normal 0.34 - 5.60 mcIU/mL [facility] COAGULATIONOrdered By: Rebecca Ruff on 01-13-2023 aPTT Coag (PPP) [Time] 36.4 s Normal 25.1 - 36.5 second(s) [facility] Auto Coag INR Coag (PPP) [Relative time] 1.0 {INR} Invalid Interpretation Code [facility] Auto Coag PT Coag (PPP) [Time] 10.6 s Normal 9.4 - 1 2.5 second(s) [facility] Auto Coag HEMATOLOGYOrdered By: SYSTEM SYSTEM on 01-13-2023 Basophils/100 WBC (Bld) 0.4 % Normal 0.0 - 2.0 % [facility] HemeAutoSS Basophils/Leukocytes Auto (Bld) [Pure # fraction] 0.0 E9/L Normal 0.0 - 0.2 E9/L [facility] HemeAutoSS Eosinophils/100 WBC (Bld) 1.6 % Normal 0.0 - 8.0 % [facility] HemeAutoSS Eosinophils/Leukocytes Auto (Bld) [Pure # fraction] 0.1 E9/L Normal 0.0 - 0.5 E9/L [facility] HemeAutoSS Lymphocytes/100 WBC (Bld) 32.2 % Normal 14.0 - 50.0 % [facility] HemeAutoSS Lymphocytes/Leukocytes Auto (Bld) [Pure # fraction] 2.3 E9/L Normal 1.0 - 4.0 E9/L [facility] HemeAutoSS Monocytes/100 WBC (Bld) 8.3 % Normal 4.0 - 14.0 % [facility] HemeAutoSS Monocytes/Leukocytes Auto (Bld) [Pure # fraction] 0.6 E9/L Normal 0.2 - 1.0 E9/L [facility] HemeAutoSS Neutrophils/100 WBC (Bld) 57.5 % Normal 36.0 - 75.0 % [facility] HemeAutoSS Neutrophils/Leukocytes Auto (Bld) [Pure # fraction] 4.1 E9/L Normal 2.0 - 7.5 E9/L [facility] HemeAutoSS HEMATOLOGYOrdered By: Marbin Ocampo on 01-13-2023 Erythrocyte distribution width (RBC) [Ratio] 13.7 % Normal 10.9 - 14.2 % [facility] HemeAutoSS Hematocrit (Bld) [Volume fraction] 39.7 % Normal 34.0 - 46.0 % [facility] Hemoglobin (Bld) [Mass/Vol] 13.5 g/dL Normal 12.0 - 16.0 gm/dL [facility] HemeAutoSS MCH (RBC) [Entitic mass] 29.4 pg Normal 27.0 - 34.0 pg [facility] MCHC (RBC) [Mass/Vol] 34.1 g/dL Normal 31.4 - 36.0 gm/dL [facility] MCV (RBC) [Entitic vol] 86.2 fL Normal 80.0 - 100.0 fL [facility] Platelet mean volume (Bld) [Entitic vol] 6.4 fL Normal 6.4 - 10.8 fL [facility] Platelets (Bld) [#/Vol] 325.0 E9/L Normal 150.0 - 500.0 E9/L [facility] RBC (Bld) [#/Vol] 4.6 E12/L Normal 4.3 - 5.9 E12/L [facility]eAutoSS WBC corrected for nucl RBC Auto (Bld) [#/Vol] 7.1 E9/L Normal 4.0 - 11.0 E9/L [facility] CBC Auto DifferentialOrdered By: Maryellen Jung on 12-06-2020 Absolute Eos # 0.00 [employer]ineout [facility] Work Phone: Absolute Immature Granulocyte NOT REPORTED [employer] Work Phone: Absolute Lymph # 1.30 dineout [facility] Work Phone: Absolute [place] # 0.50 [facility] Work Phone: Basophils (Bld) [#/Vol] 0.00 10*3/uL [employer] Phone: Basophils/100 WBC (Bld) 0 % 0 - 2 % [employer] Work Phone: Differential Type YES [employer] Phone: Eosinophils/100 WBC (Bld) 0 % 0 - 5 % [employer] Phone: Hematocrit (Bld) [Volume fraction] 37.5 % 36 - 46 % [employer] Work Phone: Hemoglobin.gastrointes tinal spec 1 Ql (Stl) 13.1 g/dL 12.0 - 16.0 g/dL [employer] Phone: Immature Granulocytes NOT REPORTED 0 % [employer] Phone: Interpretation and review of laboratory results Abnormal [employer] Phone: Lymphocytes/100 WBC (Bld) 15 % 15 - 40 % [employer] Phone: MCH (RBC) [Entitic mass] 29.0 pg 26 - 34 pg [employer] Phone: MCHC (RBC) [Mass/Vol] 34.8 g/dL 31 - 37 g/dL [employer] Phone: MCV (RBC) [Entitic vol] 83.2 fL 80 - 100 fL [employer] Phone: Monocytes/100 WBC (Bld) 5 % 4 - 8 % [employer] Phone: NRBC Automated NOT REPORTED per 100 WBC [employer] Work Phone: Platelet distribution width (Bld) [Ratio] 13.9 % 12.1 - 15.2 % [employer] Phone: Platelet Estimate NOT REPORTED [employer] Phone: Platelet mean volume (Bld) [Entitic vol] NOT REPORTED 6.0 - 12.0 fL [employer] Phone: Platelets (Bld) [#/Vol] 273 10*3/uL [employer] Work Phone: RBC (Bld) [#/Vol] 4.50 10*6/uL 4.0 - 5.2 m/uL [employer] Work Phone: RBC (Bld) [#/Vol] NOT REPORTED [employer] Work Phone: Segmented neutrophils/100 WBC (Bld) 80 % High 47 - 75 % [employer] Work Phone: Segs Absolute 7.30 High [employer] Work Phone: WBC (Bld) [#/Vol] 9.2 10*3/uL [employer] Phone: WBC (Bld) [#/Vol] NOT REPORTED [employer] Phone: [employer] Work Phone: Comprehensive Metabolic Pane lOrdered By: Maryellen Jung on 12-06-2020 Albumin [Mass/Vol] 3.7 g/dL 3.5 - 5.2 g/dL [employer] Phone: Albumin/Globulin Ratio NOT REPORTED [employer] Phone: ALP (Bld) [Catalytic activity/Vol] 86 U/L 35 - 104 U/L [employer] Phone: ALT [Catalytic activity/Vol] 24 U/L 5 - 33 U/L [employer] Phone: Anion gap [Moles/Vol] 9 mmol/L 9 - 17 mmol/L [employer] Phone: AST [Catalytic activity/Vol] 18 U/L <32 [employer] Phone: Bilirubin [Mass/Vol] 0.44 mg/dL 0.30 - 1.20 mg/dL [employer] Work Phone: Calcium [Mass/Vol] 8.6 mg/dL 8.6 - 10. 4 mg/dL [employer] Phone: Chloride [Moles/Vol] 100 mmol/L 98 - 10 7 mmol/L [employer] Phone: CO2 [Moles/Vol] 26 mmol/L 20 - 31 mmol/L [employer] Phone: Creatinine [Mass/Vol] 0.88 mg/dL 0.50 - 0.90 mg/dL [employer] Phone: Free PSA/Total PSA [Mass fraction] 7.2 g/dL 6.4 - 8.3 g/dL [employer] Phone: GFR >60 >60 mL/min [employer]D [employer] Phone: GFR Non- >60 >60 mL/min [employer] Phone: GFR/1.73 sq M.predicted MDRD (S/P/Bld) [Vol rate/Area] [employer] Phone: Comment on above: Average GFR for 40-4 9 years old: 99 mL/min/1.73sq m Chronic Kidney Disease: <60 mL/min/1.73sq m Kidney failure: <15 mL/min/1.73sq m eGFR calculated using average adult body mass. Additional eGFR calculator available at: http://www.[employer].Veeqo/multiple_crcl_2012.htm GFR/1.73 sq M.predicted MDRD (S/P/Bld) [Vol rate/Area] NOT REPORTED [employer] Phone: Glucose [Mass/Vol] 115 mg/dL High 70 - 99 mg/dL [employer] Phone: Interpretation and review of laboratory results Abnormal [employer] Phone: Potassium [Moles/Vol] 3.8 mmol/L 3.7 - 5.3 mmol/L [employer] Phone: Sodium [Moles/Vol] 135 mmol/L 135 - 144 mmol/L [employer] Phone: Urea nitrogen (BldV) [Mass/Vol] 12 mg/dL 6 - 20 mg/dL [employer] Phone: Urea nitrogen/Creatinine (Bld) [Mass ratio] 14 [employer] Phone: [employer] Phone: Sedimentation RateOrdered By : ITT EXIMitrov on 12-06-2020 Interpretation and review of laboratory results Abnormal [employer] Phone: Sed Rate 58 mm High 0 - 20 mm [employer] Phone: [employer] Phone: CHEST PA AND LATERALon 07-17 CHEST PA AND LATERAL Final ReportAccession No: [id number] Performed: Jul 17 2017 10:39AMExamination: CHEST PA AND LATERALEXAM: CHEST PA AND LATERALCLINICAL STATEMENT: WheezingCOMPARISON: Chest radiograph dated 08/22/2016TECHNIQUE: Frontal and lateral views of the chest (two views)FINDINGS: Normal appearance of the cardiac and mediastinal contours.Nomediastina l widening. No focal pulmonary opacities. No overt pulmonaryedema. No pleural effusion or pneumothorax. No acute osseousabnormalities. Unchanged apex left thoracic scoliosis.IMPRESSION: No acute cardiopulmonary abnormality.Interpret ing Physician: JAZMIN PELLETIER M.D.Trans: n/a : cc: Normal [facility] XR CHEST 2 Von 03-02-2017 XR CHEST [address] [place] [address] Patient: KARI HUMPHREY Exam Date: 03/02/2017DOB: 1970 Gender:F : SRI [facility] [facility] Admission #: [id number] : Order #: [id number] HERE TO VIEW EXAM RADIOLOGY REPORT PROCEDURE: RADIOGRAPH CHEST 2 VIEWS COMPARISON: None. INDICATIONS: Positive PPD FINDINGS: LUNGS: No significant pulmonary parenchymal abnormalities. VASCULATURE: No increased pulmonary vasculature. PLEURA: No pneumothorax, effusion, or pleural thickening. CARDIAC: No cardiomegaly or cardiac silhouette abnormality. MEDIASTINUM: No visible mass or adenopathy. BONES: Cervicothoracic rotatory levocurvatureOTHER: Negative. CONCLUSION: 1. Clear lungs Dictated by: Lexis Jain M.D. on 03/02/2017 at 14:18 Approved by: Lexis Jain M.D. on 03/02/2017 at 14:19 Normal [facility] Vital Signs Date Time Vital Sign Value Performing Clinician Facility 03-04-2024 09:23-0500 Body height 170.2 cm Dolly Cho MD Work Phone: [facility] 03-04-2024 09:23-0500 Body mass index (BMI) [Ratio] 38.06 kg/m2 Dolly Cho MD Work Phone: [facility] 03-04-2024 09:23-0500 Body weight 110.22 kg Dolly Cho MD Work Phone: [facility] 03-04-2024 09:23-0500 Diastolic blood pressure 93 mm[Hg] Dolly Cho MD Work Phone: [facility] 03-04-2024 09:23-0500 Systolic blood pressure 160 mm[Hg] Dolly Cho MD Work Phone: [facility] 11-30-2023 07:48-0400 Blood Pressure Location [employer] [facility] 11-30-2023 07:48-0400 Diastolic blood pressure 84 mm[Hg] [employer] [facility] 11-30-2023 07:48-0400 Heart rate 91 /min [employer] [facility] 11-30-2023 07:48-0400 SaO2% (BldA) [Mass fraction] 97 % [employer] [facility] 11-30-2023 07:48-0400 Systolic blood pressure 136 mm[Hg] Seymour Link [facility] 11-26-2023 10:30-0400 Blood Pressure Location JUAQUIN CHAVEZ [facility] 11-26-2023 10:30-0400 Body temperature 98.06 [degF] JUAQUIN CHAVEZ [facility] 11-26-2023 10:30-0400 Diastolic blood pressure 100 mm[Hg] JUAQUIN CHAVEZ [facility] 11-26-2023 10:30-0400 Heart rate 88 /min [facility] CHAVEZ [facility] 11-26-2023 10:30-0400 SaO2% (BldA) [Mass fraction] 95 % NORTHBRIDGE CHAVEZ [facility] 11-26-2023 10:30-0400 Systolic blood pressure 160 mm[Hg] NORTHBRIDGE CHAVEZ [facility] 09-04-2023 08:26-0400 Blood Pressure Location Seymour Link [facility] 09-04-2023 08:26-0400 Diastolic blood pressure 84 mm[Hg] Seymour Link [facility] 09-04-2023 08:26-0400 Heart rate 88 /min Seymour Link [facility] 09-04-2023 08:26-0400 SaO2% (BldA) [Mass fraction] 96 % Seymour Link [facility] 09-04-2023 08:26-0400 Systolic blood pressure 130 mm[Hg] Seymour Link [facility] 06-26-2023 18:09-0500 Diastolic blood pressure 90 mm[Hg] [facility] 06-26-2023 18:09-0500 Mean blood pressure 107 mm[Hg] [facility] 06-26-2023 18:09-0500 Systolic blood pressure 140 mm[Hg] [facility] 06-26-2023 17:50-0500 Blood Pressure Location [facility] 06-26-2023 17:50-0500 Body temperature 98.42 [degF] [facility] 06-26-2023 17:50-0500 Diastolic blood pressure 98 mm[Hg] [facility] 06-26-2023 17:50-0500 Heart rate 98 /min [facility] 06-26-2023 17:50-0500 SaO2% (BldA) [Mass fraction] 99 % [facility] 06-26-2023 17:50-0500 Systolic blood pressure 146 mm[Hg] [facility] 05-24-2023 14:09-0500 Blood Pressure Location Rex Van [facility] 05-24-2023 14:09-0500 Body temperature 97.52 [degF] Rex Van [facility] 05-24-2023 14:09-0500 Diastolic blood pressure 88 mm[Hg] Rex Van [facility] 05-24-2023 14:09-0500 Heart rate 104 /min Rex Van [facility] 05-24-2023 14:09-0500 SaO2% (BldA) [Mass fraction] 95 % Rex Van [facility] 05-24-2023 14:09-0500 Systolic blood pressure 120 mm[Hg] Rex Van [facility] 03-05-2023 14:39-0500 Blood Pressure Location Rex Van [facility] 03-05-2023 14:39-0500 Body temperature 98.6 [degF] Rex Van [facility] 03-05-2023 14:39-0500 Diastolic blood pressure 72 mm[Hg] Rex Van [facility] 03-05-2023 14:39-0500 Heart rate 83 /min Rex Van [facility] 03-05-2023 14:39-0500 SaO2% (BldA) [Mass fraction] 96 % Rex Van [facility] 03-05-2023 14:39-0500 Systolic blood pressure 124 mm[Hg] Rex Van [facility] 01-13-2023 08:56-0400 Diastolic blood pressure 69 mm[Hg] Dolly Timmis [facility] 01-13-2023 08:56-0400 Heart rate 82 /min Dolly Timmis [facility] 01-13-2023 08:56-0400 Mean blood pressure 83 mm[Hg] Dolly Timmis [facility] 01-13-2023 08:56-0400 Systolic blood pressure 111 mm[Hg] Dolly Timmis [facility] 01-13-2023 08:56-0400 Heart rate 85 /min Dolly Timmis [facility] 01-13-2023 08:56-0400 SaO2% (BldA) [Mass fraction] 100 % Dolly Timmis [facility] 01-13-2023 08:55-0400 Body temperature 98.42 [degF] Dolly Timmis [facility] 01-13-2023 08:55-0400 Blood Pressure Location Dolly Timmis [facility] 01-13-2023 08:55-0400 Diastolic blood pressure 77 mm[Hg] Dolly Timmis [facility] 01-13-2023 08:55-0400 Mean blood pressure 92 mm[Hg] Dolly Timmis [facility] 01-13-2023 08:55-0400 Systolic blood pressure 121 mm[Hg] Dolly Timmis [facility] 01-13-2023 08:54-0400 Respiratory rate 16 /min Dolly Timmis [facility] 12-06-2020 13:35-0400 Diastolic blood pressure 63 mm[Hg] Maryellen Jung MD Work Phone: [employer] Work Phone: 12-06-2020 13:35-0400 SaO2% (BldA) [Mass fraction] 94 % Maryellen Jung MD Work Phone: [employer] Work Phone: 12-06-2020 13:35-0400 Systolic blood pressure 152 mm[Hg] Maryellen Jung MD Work Phone: [employer] Work Phone: 12-06-2020 11:47-0400 Body height 167.6 cm Maryellen Jung MD Work Phone: [employer] Work Phone: 12-06-2020 11:47-0400 Body mass index (BMI) [Ratio] 37.12 kg/m2 Maryellen Jung MD Work Phone: [employer] Work Phone: 12-06-2020 11:47-0400 Body temperature 99.1 [degF] Maryellen Jung MD Work Phone: [employer] Work Phone: 12-06-2020 11:47-0400 Body weight 104.33 kg Maryellen Jung MD Work Phone: [employer] Work Phone: 12-06-2020 11:47-0400 Heart rate 104 /min Maryellen Jung MD Work Phone: [employer] Work Phone: 12-06-2020 11:47-0400 Respiratory rate 20 /min Maryellen Jung MD Work Phone: [employer] Work Phone: 05-31-2019 16:13-0500 Respiratory Rate 16 /min [employer] Work Phone: 05-31-2019 16:09-0500 BMI (Body Mass Index) 37.61 kg/m2 [email or web address] Work Phone: 05-31-2019 16:09-0500 Body Temperature 97.9 [degF] [email or web address] Work Phone: 05-31-2019 16:09-0500 Body weight 105.69 kg Javier [email or web address] Work Phone: 05-31-2019 16:09-0500 BP Diastolic 87 mm[Hg] [facility] [email or web address] Work Phone: 05-31-2019 16:09-0500 BP Systolic 175 mm[Hg] Gorge Parikh [facility] Work Phone: 05-31-2019 16:09-0500 Height 167.6 cm Gorge Parikh [facility] Work Phone: 05-31-2019 16:09-0500 Pulse (Heart Rate) 77 /min Gorge Parikh [facility] Work Phone: 05-31-2019 16:09-0500 Pulse Oximetry 96 % [facility] Work Phone: 05-13-2019 18:36-0500 BP Diastolic 105 mm[Hg] [facility] Comment on above: Recheck at discharge [facility] 05-13-2019 18:36-0500 BP Systolic 165 mm[Hg] [facility] Comment on above: Recheck at discharge [facility] 05-13-2019 17:20-0500 BMI (Body Mass Index) 37.12 kg/m2 Stephanie [facility] 05-13-2019 17:20-0500 Body Temperature 97.9 [degF] Stephanie [facility] 05-13-2019 17:20-0500 Body weight 104.33 kg Stephanie [facility] 05-13-2019 17:20-0500 Height 167.6 cm Stephanie [facility] 05-13-2019 17:20-0500 Pulse (Heart Rate) 86 /min Stephanie [facility] 05-13-2019 17:20-0500 Pulse Oximetry 95 % Stephanie [facility] 05-13-2019 17:20-0500 Respiratory Rate 18 /min [facility] Encounters Encounter Date Encounter Type Care Provider Facility Start: 09-23-2024 End: 09-23-2024 ambulatory TONYA OCONNOR [facility] Start: 09-23-2024 End: 09-23-2024 Subsequent hospital visit by physician Tonya Oconnor [facility] Work Phone: [facility] Comment on above: Dysuria Start: 08-29-2024 End: 08-29-2024 ambulatory MARIA LUZ NORTHEIM Not Available Start: 08-29-2024 End: 08-29-2024 Office outpatient visit 15 minutes Maria Luz Ortega PA Work Phone: [facility] Comment on above: Other specified derm atitis (Primary Dx); Encounter for removal of sutures; Dermatographism Start: 08-29-2024 End: 08-29-2024 Bamboo [employer] Maria Luz Ortega PA Work Phone: [facility] Start: 08-29-2024 End: 08-29-2024 [employer]amboo [employer] Maria Luz Moreno PA Work Phone: [facility] Start: 08-23-2024 End: 08-23-2024 Clinisync Result Encounter Dolly Cho MD Work Phone: [facility] External Department Unsolicited Start: 08-23-2024 End: 08-23-2024 Clinisync Result Encounter Dolly Cho MD Work Phone: [facility] External Department Unsolicited Start: 08-15-2024 End: 08-15-2024 ambulatory MARIA LUZ ORTEGA Not Available Start: 08-15-2024 End: 08-15-2024 Patient encounter procedure Maria Luz Ortega PA Work Phone: [facility] Comment on above: Neoplasm of unspecif ied behavior of bone, soft tissue, and skin Start: 08-15-2024 End: 08-15-2024 BamCrunchy[employer]o [employer] Maria Luz Moreno PA Work Phone: [facility] Start: 08-15-2024 End: 08-15-2024 [employer] Maria Luz Moreno PA Work Phone: [facility] Start: 08-09-2024 End: 08-09-2024 ambulatory TONYA OCONNOR [facility] Start: 08-09-2024 End: 08-09-2024 Subsequent hospital visit by physician Tonya Oconnor DNP Work Phone: [facility] Comment on above: Allergic contact maribel matitis, unspecified trigger; Generalized anxiety disorder; Primary hypertension; Screening for deficiency anemia; Encounter for screening examination for impaired glucose regulation and diabetes mellitus; Screening for hyperlipidemia; Encounter for vitamin deficiency screening; Papillary thyroid carcinoma Start: 03-04-2024 End: 03-04-2024 Bamboo flowsheet [facility] MD [facility] Start: 03-04-2024 End: 03-04-2024 Bamboo flowsheet Dolly Cho MD Work Phone: [facility]EN [facility] Start: 03-04-2024 End: 03-04-2024 Clinisync Result Encounter Dolly Cho MD Work Phone: [facility] External Department Unsolicited Start: 03-04-2024 End: 03-04-2024 Telephone encounter Dolly Cho MD [facility] Start: 03-04-2024 End: 03-04-2024 ambulatory Dolly Cho Facility:[facility] Start: 03-04-2024 End: 03-04-2024 Patient encounter procedure Dolly Cho [facility] Start: 03-04-2024 End: 03-04-2024 Office outpatient visit 15 minutes Dolly Cho MD Work Phone: [facility]IA[facility] Comment on above: Nontoxic multinodula r goiter (CMS/HCC) (Primary Dx); Papillary thyroid carcinoma (CMS/HCC); Weight gain Start: 03-04-2024 End: 03-04-2024 ambulatory Seymour C Link Facility:[facility] Start: 11-30-2023 End: 11-30-2023 ambulatory Seymour C Link Facility:[facility] Start: 11-30-2023 End: 11-30-2023 Patient encounter procedure Seymour C Link [facility] [place] Start: 11-26-2023 End: 11-26-2023 ambulatory JUAQUIN CHAVZE Facility:[facility] Start: 11-26-2023 End: 11-26-2023 Patient encounter procedure JUAQUIN MOSERZ [facility] Start: 09-04-2023 End: 09-04-2023 ambulatory Seymour C Link Facility:[facility] Start: 09-04-2023 End: 09-04-2023 Patient encounter procedure Seymour C Link [facility] [place] Start: 08-31-2023 End: 08-31-2023 ambulatory Seymour C Link Facility:[facility] Start: 08-31-2023 End: 08-31-2023 Patient encounter procedure Dolly Cho [facility] Start: 08-25-2023 ambulatory JUAQUIN CHAVEZ Facilit y:[facility] Start: 06-26-2023 End: 06-26-2023 ambulatory Disha Haywood Facility:[facility] Start: 06-26-2023 End: 06-26-2023 Patient encounter procedure Disha Haywood [facility] Start: 05-24-2023 End: 05-24-2023 ambulatory Rex Van Facility:[facility] Start: 05-24-2023 End: 05-24-2023 Lab Drop off Rex Van [facility] Start: 05-24-2023 End: 05-24-2023 ambulatory Rex Van Facility:[facility] Start: 05-24-2023 End: 05-24-2023 Patient encounter procedure Rex Van [facility] Start: 04-16-2023 End: 04-16-2023 Emergency department patient visit DISHA BISHOP [facility] Start: 03-09-2023 End: 03-13-2023 ambulatory PHYSICIAN [facility] Start: 03-05-2023 End: 03-05-2023 ambulatory Rex Van Facility:[facility] Start: 03-05-2023 End: 03-05-2023 Patient encounter procedure Rex CrenshawSivakumar Van [facility] Start: 01-13-2023 End: 01-13-2023 Patient encounter procedure Dolly Granados [facility] Start: 12-28-2022 End: 12-28-2022 Patient encounter procedure Crystal Nathan [facility] Start: 12-21-2022 End: 12-21-2022 Patient encounter procedure Crystal Nathan [facility] Start: 11-09-2022 End: 11-09-2022 Patient encounter procedure Seymour Suarez Link [facility] Start: 09-01-2022 End: 09-22-2022 Pre-admission assessment Seymour C Link [facility] Start: 12-06-2020 End: 12-06-2020 Emergency department patient visit Maryellen Jung MD Work Phone: [facility] Comment on above: Pneumonia due to COV ID-19 virus (Primary Dx); Dehydration; Nausea and vomiting, intractability of vomiting not specified, unspecified vomiting type Start: 05-31-2019 End: 05-31-2019 Emergency department patient visit Gorge Parikh Work Phone: [facility] Comment on above: Migraine without sta tus migrainosus, not intractable, unspecified migraine type (Primary Dx) Start: 05-13-2019 End: 05-13-2019 Patient encounter procedure PHYSICIAN [facility] Start: 05-13-2019 End: 05-13-2019 Office outpatient visit 25 minutes Stephanie Doss Work Phone: [facility] [place] Comment on above: Intractable migraine without aura and without status migrainosus (Primary Dx); Elevated blood pressure reading in office without diagnosis of hypertension Start: 07-17-2017 Ambulatory [facility] C [facility]:[place] Start: 03-02-2017 End: 03-03-2017 Ambulatory SRI ISRAEL Facility: Start: 02-09-2017 Ambulatory Rose C Conn Facilit y:[place] Start: 02-09-2017 End: 02-09-2017 Patient encounter procedure Stephanie Doss Work Phone: [facility] Start: 01-19-2017 Ambulatory Rose C Conn Facilit y:[place] Start: 12-09-2016 Ambulatory Rose C Conn Facilit y:[place] Procedures Date Procedure Procedure Detail Performing Clinician Start: 08-23-2024 Us soft tissue head & neck real time imge docm Dolly Cho MD Work Phone: Start: 08-15-2024 SKIN / NAIL BIOPSY Juan J HIGGINS Work Phone: Start: 08-09-2024 Comprehensive metabo lic panel Tonya Oconnor DNP Work Phone: Start: 08-09-2024 Lipid panel Tonya Oconnor DNP Work Phone: Start: 03-04-2024 [facility] THYROID II Dolly Cho MD Work Phone: Start: 01-26-2023 Total thyroidectomy Abhilash Van Start: 12-06-2020 Radiologic exam ches t single view Maryellen Jung MD Work Phone: Start: 12-06-2020 Comprehensive metabo lic panel Maryellen Jung MD Work Phone: section Dolly arauz Hysterectomy Dolly Cho Ligation of fallopian tube Darwin Cho Plan of Treatment Date Care Activity Detail Author Start: 08-09-2029 Lipid panel [facility] Start: 09-23-2025 Depression Monitoring Depression Monitoring [facility] Start: 08-09-2025 Hemoglobin A1c measurement A1C test (Diabetic or Prediabetic) [facility] Start: 05-28-2025 Depression Monitoring Depression Monitoring [facility] Start: 12-23-2024 Influenza vaccination Influenza Vaccine (Season Ended) [facility] Start: 11-22-2024 Influenza vaccination Flu [facility] (Season Ended) [facility] Start: 08-29-2024 End: 08-29-2024 Patient encounter procedure 08/29/2024 3:10 PM EDT Office Visit [facility] [address] [place] [address] Maria Luz Ortega PA [address] [place] [address] [facility] Start: 06-03-2024 End: 06-03-2024 Patient encounter procedure 06/03/2024 8:00 AM EST [facility] [address] [place] [address] Dolly Cho MD [address] [place] [address] [facility] JOSLYNK Start: 05-27-2024 End: 03-04-2025 US Thyroid gland US thyroid Imaging Routine Nontoxic multinodular goiter (CMS/HCC) Expected: 05/27/2024, Expires: 03/04/2025 [facility] Comment on above: Expected: 05/27/2024, Expires: Start: 03-04-2024 End: 03-04-2025 THYROID PROFILE II ([facility]) THYROID PROFILE II ([facility]) Lab Routine Nontoxic multinodular goiter (CMS/HCC) Papillary thyroid carcinoma (CMS/HCC) Expected: 03/04/2024 (Approximate), Expires: 03/04/2025 [facility] Work Phone: Comment on above: Expected: 03/04/2024 (Approximate), Expi res: 03/04/2025 Start: 12-24-2023 COVID-19 Vaccine ( season) COVID-19 Vaccine ( season) [facility] Start: 12-24-2023 Influenza vaccination Influenza Vaccine (#1) [facility] Start: 2022 Pneumococcal 50+ years Vaccine (1 of 1 - PCV) Pneumococcal 50+ years Vaccine (1 of 1 - PCV) [facility] Start: 2022 Shingles vaccine (1 of 2) Shingles vaccine (1 of 2) [facility] Start: 12-06-2021 Creatinine measurement Creatinine monitoring [facility] Phone: Start: 12-06-2021 Potassium monitoring Potassium monitoring [facility] [employer] Phone: Start: 12-23-2020 Influenza vaccination Flu vaccine (#1) [employer] Phone: Start: 12-23-2018 Influenza vaccination Flu vaccine (#1) [employer] Phone: Start: 12-23-2018 Influenza vaccination given SEQUENTIAL INFLUENZA VACCINE (#1) [facility] Start: 2017 Screening for malignant neoplasm of colon [facility] Start: 12-23-2016 Influenza vaccination SEQUENTIAL INFLUENZA VACCINE (#1) [facility] Phone: Start: 2012 Diabetes screen Diabetes screen [facility]: Start: 2012 Lipid panel [facility]id screen [facility] Phone: Start: 2012 Screening for malignant neoplasm of breast [facility] Start: 2002 Screening for malignant neoplasm of cervix [facility] Start: 1993 Screening for malignant neoplasm of cervix [facility] Start: 1991 DTaP/Tdap/Td vaccine (1 - Tdap) DTaP/Tdap/Td vaccine (1 - Tdap) [facility] Start: 1990 Hepatitis C screening Hepatitis C screen [employer] Start: 1987 HIV screening HIV screen [employer] Start: 1984 COVID-19 Vaccine (1) COVID-19 Vaccine (1) [employer] Work Phone: Start: 1975 History and physical examination, annual for health maintenance Wellness Visit [facility] Start: 1972 Hepatitis C screening Hepatitis C screen [employer] Work Phone: Start: 1972 Screening for malignant neoplasm of cervix PAP SMEAR [facility] Work Phone: Start: 1972 Screening for malignant neoplasm of colon [facility] Start: 1972 Screening mammography Mammogram [facility] Start: 1972 Tetanus vaccination TETANUS EVERY 10 YR [facility] Work Phone: End: 09-23-2024 Culture, Urine [facility] [employer] Comment on above: 1 Occurrences starting 09/23/2024 until 09/23/2024 Dermatopathology exam Dermatopat hology exam Pathology and Cytology Timed Neoplasm of unspecified behavior of bone, soft tissue, and skin Release Upon Ordering for 1 Occurrences starting 08/15/2024 [facility] [employer] [facility] [employer] Work Phone: Comment on above: Release Upon Ordering for 1 Occurrences starting 08/15/2024 XR CHEST PORTABLE XR CHEST HAILEY BLE Imaging STAT 12/06/2020 12:25 PM EDT [employer] Work Phone: Immunizations Immunization Date Immunization Notes Care Provider Charlotte lora 04-07-2021 SARS-CoV-2 (COVID-19 ) mRNA-1273 vaccine Dolly Cho [facility] 2021 SARS-CoV-2 mRNA (tozinameran 5y-11y) vaccine Rex Van [facility] 03-10-2021 SARS-CoV-2 (COVID-19 ) mRNA-1273 vaccine Dolly Cho [facility] NEGATED: Highlighted row has not occurred!09-04-2023 influenza virus vaccine, unspecified formulation Seymour Waller [facility] [place] NEGATED: Highlighted row has not occurred!01-03-2023 influenza virus vaccine, unspecified formulation Dolly Cho [facility] Payers Date Payer Category Payer Private Health Insurance [id number] 2022 Private Health Insurance [id number] 2015 Private Health Insurance [id number] 2015 Private Health Insurance MIGUEL ART TPA* xxxxxxxxxx 2015-Present xxxxxxxxxx [id number] 2014 Private Health Insurance [id number] 2014 Unknown UMR UMR xxxxxxxx 2014-Present [address] [place] [address] xxxxxxxx [id number] 1972 Unknown [id number] 2.16.840.1.300083.3.579.2 .903 1972 Unknown [id number] 2.16.840.1.973416.3.579.2 .902 1972 Unknown [id number] 2.16.840.1.417140.3.579.2 .727 1972 Unknown [id number] 2.16.840.1.688661.3.579.2 .727 1972 Unknown [id number] 2.16.840.1.307621.3.579.2 .727 1972 Unknown [id number] 2.16.840.1.521163.3.579.2 .727 1972 Unknown [id number] 2.16.840.1.447923.3.579.2 .727 1972 Unknown [id number] 2.16.840.1.009260.3.579.2 .727 1972 Unknown [id number] 2.16.840.1.287529.3.579.2 .727 1972 Unknown [id number] 2.16.840.1.191488.3.579.2 .727 1972 Unknown [id number] 2.16.840.1.745799.3.579.2 .727 1972 Unknown [id number] 2.16.840.1.882181.3.579.2 .727 1972 Unknown [id number] 2.16.840.1.741594.3.579.2 .727 1972 Unknown [id number] 2.16.840.1.192140.3.579.2 .727 1972 Unknown [id number] 2.16.840.1.008120.3.579.2 .727 1972 Unknown [id number] 2.16.840.1.796389.3.579.2 .727 1972 Unknown [id number] 2.16.840.1.457066.3.579.2 .1259 1972 Unknown [id number] 2.16.840.1.749881.3.579.2 .1259 1972 Unknown [id number] 2.16.840.1.313029.3.579.2 .1259 1972 Unknown [id number] 2.16.840.1.705315.3.579.2 .174 1972 Unknown [id number] 2.16.840.1.452071.3.579.2 .174 1959 Self-pay Social History Date Type Detail Facility Start: 02-06-2016 End: 02-04-2025 Tobacco smoking status NHIS Never smoker [facility] Start: 1970 Sex Assigned At Not on file [facility] Work Phone: Start: 05-13-2019 End: 09-23-2024 Alcohol intake Current non-drinker of alcohol (finding) [facility] Start: 12-06-2020 End: 05-28-2024 Tobacco use and exposure Never used [facility] Exposure to SARS-CoV -2 (event) Not sure [facility] Tobacco smoking status No Smokin g Status Entered [facility] Start: 03-04-2024 End: 09-23-2024 Sex Assigned At Female [facility] Tobacco smoking status Never [facility] Start: 03-04-2024 End: 08-30-2024 Alcoholic beverage intake Ex-drinker (finding) [facility] Start: 03-04-2024 End: 09-23-2024 History of Social function [facility] Has the Retail [employer] or [employer] threatened to shut off services in your home in past 12Mo No [employer] How often to you hav e a drink containing alcohol? Never [employer] (I/We) worried lisa er (my/our) food would run out before (I/we) got money to buy more. Never true [employer] Start: 1970 Sex assigned at Female [employer] Start: 06-06-2012 Sex Female (finding) [employer] Start: 01-02-2023 Gender identity Identifies as female gender (finding) [employer] Start: 01-02-2023 Sexual orientation Heterosexual (finding) [facility] Functional Status Date Assessment Result Facility 11-30-2023 Functional Status N/A [facility] 09-04-2023 Functional Status N/A [facility] 06-26-2023 Functional Status N/A [facility] 05-24-2023 Functional Status N/A [facility] 03-05-2023 Functional Status N/A [facility] 01-13-2023 Functional Status No [facility] Clinical Notes 12-16-2022 to 08-29-2024 RONALDO Yadav - 08/29/2024 3:10 PM RONALDO Goldsmith - 08/15/2024 3:00 PM EDTTelephone Encounter - Dolly Cho MD - 03/04/2024 11:07 AM Parviz Cho MD - 03/04/2024 9:10 AM EST Note Date & Type Note Facility 08-29-2024 History of Present illness Narrative Images from the original note were not included. Suture Removal Patient here for suture removal: No complaints of redness, drainage or swelling at site, compliant with wound care. Location: Left upper arm Procedure Performed: Punch biopsy Date of Procedure: 08/15/2024 Medications: none Follow up Diagnosis: Rash unspecified Location: arms/chest Last visit: 2 weeks ago Symptoms: red, itchy Status: improved today Procedure performed: Punch biopsy Date of procedure: 08/15/2024 Number of treatments to date: 1 Treatments tried and failed: Мария Current treatment: Ciclopirox 0.77% gel, Triamcinolone 0.1% cream All pertinent medical history, medications, and allergies were reviewed. General Exam: alert, oriented to person, place, and time, normal affect, well appearing Unaccompanied A focused exam completed based on patient reported problems, see below: Skin Exam 1. ENCOUNTER FOR REMOVAL OF SUTURES Left Upper Arm Sutures are intact, Skin edges are well-approximated, Mild erythema along incision line, Erythema from adhesive noted around incision line Suture Removal: Procedure: Sutures removed without difficulty. Post-Procedure instructions: Instructed to discontinue wound care., Pathology results discussed. 2. DERMATOGRAPHISM Chest (Upper Torso, Anterior), Left Arm, Right Arm Linear whealed plaques induced by scratching Discussed this condition can be seasonal or a chronic issue. Continue taking Мария daily. Can add nighttime antihistamine if having symptoms at night as well. Notify office if flaring despite treatment or if excessive drowsiness occurs. 3. OTHER SPECIFIED DERMATITIS Right Breast Resolved today Pathology was reviewed with the patient. Explained that it showed a resolving spongiotic dermatitis consistent with atopic dermatitis or contact dermatitis. Patient states that it may have been related to a different detergent sued. The rash has now resolved. Notify office if rash returns and continue triamcinolone as needed. Discussed gentle skin care. Next Visit: prn for any new/changing lesions documented in this encounter [facility] 08-15-2024 History of Present illness Narrative Images from the original note were not included. Rash Location: arms and chest Duration: 3 months Quality: itchy Modifying Factors: worse with showering Associated symptoms: red Treatments tried: мария Current treatments: TAC 0.1% cream and ciclopirox gel New patient All pertinent medical history, medications, and allergies were reviewed. General Exam: alert, oriented to person, place, and time, normal affect, well appearing Unaccompanied A focused exam completed based on patient reported problems, see below: Skin Exam 1. NEOPLASM OF UNSPECIFIED BEHAVIOR OF BONE, SOFT TISSUE, AND SKIN Left Upper Arm Erythematous annular patches Lesion biopsy Type of biopsy: punch Informed consent: discussed and consent obtained Informed consent comment: The risks and benefits of the biopsy were discussed. Risks include but are not limited to bleeding, infection, scarring, pain, and nerve damage. An opportunity to ask questions prior to the procedure was permitted and all questions were answered. Patient was prepped and draped in usual sterile fashion: area cleansed with alcohol. Anesthesia: the lesion was anesthetized in a standard fashion Anesthetic: 1% lidocaine w/ epinephrine 1-100,000 buffered w/ 8.4% NaHCO3 Punch size: 4 mm Suture size: 4-0 Suture type: nylon Suture removal (days): 14 Hemostasis achieved with: suture and electrodesiccation Outcome: patient tolerated procedure well Outcome comment: The specimen was placed in a prelabeled formalin container to be sent for pathology Post-procedure details: sterile dressing applied and wound care instructions given Post-procedure details comment: Emphasized need to contact clinic for any signs of infection, uncontrollable bleeding, or complications. Dressing type: bandage Additional details: Photo taken Amount of lidocaine used: 0.8 cc Specimen A - Dermatopathology exam Differential Diagnosis: Nummular eczema vs. Granuloma annulare vs. Tinea corporis vs. Other Check Margins: No Biopsy today, see procedure note. Continue TAC 0.1% bid as this seems to be helping the patient. Will update treatment plan as needed based on pathology results. Next Visit: 14 days, S/R documented in this encounter [facility] 03-04-2024 Telephone encounter Note Tell pt TFTs normal [facility] 03-04-2024 Miscellaneous Notes Tell pt TFTs normal documented in this encounter [facility] 03-04-2024 History of Present illness Narrative Subjective Patient ID: Kari Humphrey is a 53 y.o. female who presents for Thyroid Nodule (Follow up ultrasound [facility] 12/11/23) November Thyroid US shows a [id number] RT TR4 nodule, and a smaller nodule, compared to 9x5x8 and 7x4x7 in June. Pt also notes increased BP and weight Family History Problem Relation Name Age of Onset Migraines Mother Diabetes Mother Hypertension Mother Cancer Father Heart failure Father Hypertension Father Active Ambulatory Problems Diagnosis Date Noted Hypertension (CMS/HCC) 11/17/2022 Generalized anxiety disorder (CMS/HCC) 11/17/2022 IBS (irritable bowel syndrome) 11/17/2022 Thyroid nodule (CMS/HCC) 11/17/2022 Nontoxic multinodular goiter (CMS/HCC) 11/23/2022 Papillary thyroid carcinoma (CMS/HCC) 07/21/2023 Resolved Ambulatory Problems Diagnosis Date Noted No Resolved Ambulatory Problems Past Medical History: Diagnosis Date Disease of thyroid gland (CMS/HCC) Migraine (CMS/HCC) Past Surgical History: Procedure Laterality Date HYSTERECTOMY 1998 THYROID SURGERY 01/26/2023 left hemithyroidectomy, Dr. Cho TONSILLECTOMY 1981 Allergies Allergen Reactions Hepatitis B Vaccine Current Outpatient Medications on File Prior to Visit Medication Sig Dispense Refill amitriptyline (Elavil) 25 MG tablet Take 25 mg by mouth at bedtime. busPIRone (Buspar) 10 MG tablet Take by mouth 2 (two) times a day DULoxetine (Cymbalta) [address] capsule Take 60 mg by mouth in the morning. Do not crush or chew. . fexofenadine (Мария) 180 MG tablet Take 180 mg by mouth in the morning. losartan (Cozaar) 50 MG tablet Take 50 mg by mouth in the morning. rizatriptan (Maxalt) 10 MG tablet Take 10 mg by mouth 1 (one) time if needed for migraine. May repeat in 2 hours if unresolved. Do not exceed 30 mg in 24 hours. No current facility-administered medications on file prior to visit. Objective Last Recorded Vitals Vitals: 03/04/24 09 BP: (!) 160/93 ENT Physical Exam Constitutional Appearance: patient appears well-developed, well-nourished and well-groomed, Communication/Voice: communication appropriate for developmental age; vocal quality normal; Assessment/Plan Diagnoses and all orders for this visit: Nontoxic multinodular goiter (CMS/HCC) Papillary thyroid carcinoma (CMS/HCC) Weight gain Stable RT thyroid nodules. Repeat US 3 mo. Check TFTs for wt gain documented in this encounter [facility] 03-04-2024 Miscellaneous Notes Addended by: DIANNE PABLO on: 03/04/2024 09:43 AM Modules accepted: Orders documented in this encounter [facility] 03-04-2024 Note Addended by: DIANNE PABLO on: 03/04/2024 09:43 AM Modules accepted: Orders [facility] Work Phone: 03-04-2024 Note Addended by: DIANNE PABLO on: 03/04/2024 09:43 AM Modules accepted: Orders [facility] Work Phone: 11-28-2023 Hospital Discharge instructions Follow Up Care 11/28/2023 14:28:40 With:Seymour Waller DO [facility] Address: [address] [place] [address]- When: Unknown Comments:If needed [facility] [place] 11-26-2023 Evaluation + Plan note Future Scheduled TestsUrine Culture 11/26/23 [facility] 11-26-2023 Hospital Discharge instructions Patient Education 11/26/2023 11:45:55 BMI for Adults BMI for Adults What is BMI? Body mass index (BMI) is a number that is calculated from a person's weight and height. BMI can help estimate how much of a person's weight is composed of fat. BMI does not measure body fat directly. Rather, it is an alternative to procedures that directly measure body fat, which can be difficult and expensive. BMI can help identify people who may be at higher risk for certain medical problems. What are BMI measurements used for? BMI is used as a screening tool to identify possible weight problems. It helps determine whether a person is obese, overweight, a healthy weight, or underweight. BMI is useful for: Identifying a weight problem that may be related to a medical condition or may increase the risk for medical problems. Promoting changes, such as changes in diet and exercise, to help reach a healthy weight. BMI screening can be repeated to see if these changes are working. How is BMI calculated? BMI involves measuring your weight in relation to your height. Both height and weight are measured, and the BMI is calculated from those numbers. This can be done either in [place] or metric measurements. Note that charts and online BMI calculators are available to help you find your BMI quickly and easily without having to do these calculations yourself. To calculate your BMI in [place] measurements: 1.Measure your weight in pounds (lb). 2.Multiply the number of pounds by 703. For example, for a person who weighs 180 lb, multiply that number by 703, which equals 126,540. 3.Measure your height in inches. Then multiply that number by itself to get a measurement called inches squared. For example, for a person who is 70 inches tall, the inches squared measurement is 70 inches x 70 inches, which equals 4,900 inches squared. 4.Divide the total from step 2 (number of lb x 703) by the total from step 3 (inches squared): 126,540 4,900 = 25.8. This is your BMI. To calculate your BMI in metric measurements: 1.Measure your weight in kilograms (kg). 2.Measure your height in meters (m). Then multiply that number by itself to get a measurement called meters squared. For example, for a person who is 1.75 m tall, the meters squared measurement is 1.75 m x 1.75 m, which is equal to 3.1 meters squared. 3.Divide the number of kilograms (your weight) by the meters squared number. In this example: 70 3.1 = 22.6. This is your BMI. What do the results mean? BMI charts are used to identify whether you are underweight, normal weight, overweight, or obese. The following guidelines will be used: Underweight: BMI less than 18.5. Normal weight: BMI between 18.5 and 24.9. Overweight: BMI between 25 and 29.9. Obese: BMI of 30 or above. Keep these notes in mind: Weight includes both fat and muscle, so someone with a muscular build, such as an athlete, may have a BMI that is higher than 24.9. In cases like these, BMI is not an accurate measure of body fat. To determine if excess body fat is the cause of a BMI of 25 or higher, further assessments may need to be done by a health care provider. BMI is usually interpreted in the same way for men and women. Where to find more information For more information about BMI, including tools to quickly calculate your BMI, go to these websites: Centers for Disease Control and Prevention: www.cdc.gov [place] [employer]: www.heart.org National Heart, Lung, and Blood Hunter: www.nhlbi.nih.gov Summary Body mass index (BMI) is a number that is calculated from a person's weight and height. BMI may help estimate how much of a person's weight is composed of fat. BMI can help identify those who may be at higher risk for certain medical problems. BMI can be measured using [place] measurements or metric measurements. BMI charts are used to identify whether you are underweight, normal weight, overweight, or obese. This information is not intended to replace advice given to you by your health care provider. Make sure you discuss any questions you have with your health care provider. Document Revised: 01/01/2020 Document Reviewed: 11/08/2019 [employer] Patient Education 2022 [employer]. 11/26/2023 11:45:53 COVID-19 COVID-19 COVID-19, or coronavirus disease 2019, is an infection that is caused by a new (novel) coronavirus called SARS-CoV-2. COVID-19 can cause many symptoms. In some people, the virus may not cause any symptoms. In others, it may cause mild or severe symptoms. Some people with severe infection develop severe disease. What are the causes? This illness is caused by a virus. The virus may be in the air as tiny specks of fluid (aerosols) or droplets, or it may be on surfaces. You may catch the virus by: Breathing in droplets from an infected person. Droplets can be spread by a person breathing, speaking, singing, coughing, or sneezing. Touching something, like a table or a doorknob, that has virus on it (is contaminated) and then touching your mouth, nose, or eyes. What increases the risk? Risk for infection: You are more likely to get infected with the COVID-19 virus if: You are within 6 ft (1.8 m) of a person with COVID-19 for 15 minutes or longer. You are providing care for a person who is infected with COVID-19. You are in close personal contact with other people. Close personal contact includes hugging, kissing, or sharing eating or drinking utensils. Risk for serious illness caused by COVID-19: You are more likely to get seriously ill from the COVID-19 virus if: You have cancer. You have a long-term (chronic) disease, such as: ?Chronic lung disease. This includes pulmonary embolism, chronic obstructive pulmonary disease, and cystic fibrosis. ?Long-term disease that lowers your body's ability to fight infection (immunocompromise). ?Serious cardiac conditions, such as heart failure, coronary artery disease, or cardiomyopathy. ?Diabetes. ?Chronic kidney disease. ?Liver diseases. These include cirrhosis, nonalcoholic fatty liver disease, alcoholic liver disease, or autoimmune hepatitis. You have obesity. You are or were recently . You have sickle cell disease. What are the signs or symptoms? Symptoms of this condition can range from mild to severe. Symptoms may appear any time from 2 to 14 days after being exposed to the virus. They include: Fever or chills. Shortness of breath or trouble breathing. Feeling tired or very tired. Headaches, body aches, or muscle aches. Runny or stuffy nose, sneezing, coughing, or sore throat. New loss of taste or smell. This is rare. Some people may also have stomach problems, such as nausea, vomiting, or diarrhea. Other people may not have any symptoms of COVID-19. How is this diagnosed? This condition may be diagnosed by testing samples to check for the COVID-19 virus. The most common tests are the PCR test and the antigen test. Tests may be done in the lab or at home. They include: Using a swab to take a sample of fluid from the back of your nose and throat (nasopharyngeal fluid), from your nose, or from your throat. Testing a sample of saliva from your mouth. Testing a sample of coughed-up mucus from your lungs (sputum). How is this treated? Treatment for COVID-19 infection depends on the severity of the condition. Mild symptoms can be managed at home with rest, fluids, and qpsh-zhl-yykhjky medicines. Serious symptoms may be treated in a hospital intensive care unit (ICU). Treatment in the ICU may include: ?Supplemental oxygen. Extra oxygen is given through a tube in the nose, a face mask, or a garrido. ?Medicines. These may include: ?Antivirals, such as monoclonal antibodies. These help your body fight off certain viruses that can cause disease. ?Anti-inflammatories, such as corticosteroids. These reduce inflammation and suppress the immune system. ?Antithrombotics. These prevent or treat blood clots, if they develop. ?Convalescent plasma. This helps boost your immune system, if you have an underlying immunosuppressive condition or are getting immunosuppressive treatments. ?Prone positioning. This means you will lie on your stomach. This helps oxygen to get into your lungs. ?Infection control measures. If you are at risk for more serious illness caused by COVID-19, your health care provider may prescribe two long-acting monoclonal antibodies, given together every 6 months. How is this prevented? To protect yourself: Use preventive medicine (pre-exposure prophylaxis). You may get pre-exposure prophylaxis if you have moderate or severe immunocompromise. Get vaccinated. Anyone 6 months old or older who meets guidelines can get a COVID-19 vaccine or vaccine series. This includes people who are or making breast milk (lactating). Get an added dose of COVID-19 vaccine after your first vaccine or vaccine series if you have moderate to severe immunocompromise. This applies if you have had a solid organ transplant or have been diagnosed with an immunocompromising condition. ?You should get the added dose 4 weeks after you got the first COVID-19 vaccine or vaccine series. ?If you get an mRNA vaccine, you will need a 3-dose primary series. ?If you get the J&J/Chantell vaccine, you will need a 2-dose primary series, with the second dose being an mRNA vaccine. Talk to your health care provider about getting experimental monoclonal antibodies. This treatment is approved under emergency use authorization to prevent severe illness before or after being exposed to the COVID-19 virus. You may be given monoclonal antibodies if: ?You have moderate or severe immunocompromise. This includes treatments that lower your immune response. People with immunocompromise may not develop protection against COVID-19 when they are vaccinated. ?You cannot be vaccinated. You may not get a vaccine if you have a severe allergic reaction to the vaccine or its components. ?You are not fully vaccinated. ?You are in a facility where COVID-19 is present and: ?Are in close contact with a person who is infected with the COVID-19 virus. ?Are at high risk of being exposed to the COVID-19 virus. ?You are at risk of illness from new variants of the COVID-19 virus. To protect others: If you have symptoms of COVID-19, take steps to prevent the virus from spreading to others. Stay home. Leave your house only to get medical care. Do not use public transit, if possible. Do not travel while you are sick. Wash your hands often with soap and water for at least 20 seconds. If soap and water are not available, use alcohol-based hand assembler dry cell and battery. Make sure that all people in your household wash their hands well and often. Cough or sneeze into a tissue or your sleeve or elbow. Do not cough or sneeze into your hand or into the air. Where to find more information Centers for Disease Control and Prevention: www.cdc.gov/coronavirus World Health Organization: www.who.int/health-topics/coronav irus Get help right away if: You have trouble breathing. You have pain or pressure in your chest. You are confused. You have bluish lips and fingernails. You have trouble waking from sleep. You have symptoms that get worse. These symptoms may be an emergency. Get help right away. Call 911. Do not wait to see if the symptoms will go away. Do not drive yourself to the hospital. Summary COVID-19 is an infection that is caused by a new coronavirus. Sometimes, there are no symptoms. Other times, symptoms range from mild to severe. Some people with a severe COVID-19 infection develop severe disease. The virus that causes COVID-19 can spread from person to person through droplets or aerosols from breathing, speaking, singing, coughing, or sneezing. Mild symptoms of COVID-19 can be managed at home with rest, fluids, and ilbk-ajo-xczezck medicines. This information is not intended to replace advice given to you by your health care provider. Make sure you discuss any questions you have with your health care provider. Document Revised: 03/31/2022 Document Reviewed: 03/31/2022 [employer] Patient Education 2022 [email or web address]. Follow Up Care 11/26/2023 09:09:19 With:Seymour Waller DO, [facility] Address: [address] [place] [address] When: Unknown [facility] 11-26-2023 Note Patient Education Infectious Disease COVID-19 COVID-19, or coronavirus disease 2019, is an infection that is caused by a new (novel) coronavirus called SARS-CoV-2. COVID-19 can cause many symptoms. In some people, the virus may not cause any symptoms. In others, it may cause mild or severe symptoms. Some people with severe infection develop severe disease. What are the causes? This illness is caused by a virus. The virus may be in the air as tiny specks of fluid (aerosols) or droplets, or it may be on surfaces. You may catch the virus by: ? Breathing in droplets from an infected person. Droplets can be spread by a person breathing, speaking, singing, coughing, or sneezing. ? Touching something, like a table or a doorknob, that has virus on it (is contaminated) and then touching your mouth, nose, or eyes. What increases the risk? Risk for infection: You are more likely to get infected with the COVID-19 virus if: ? You are within 6 ft (1.8 m) of a person with COVID-19 for 15 minutes or longer. ? You are providing care for a person who is infected with COVID-19. ? You are in close personal contact with other people. Close personal contact includes hugging, kissing, or sharing eating or drinking utensils. Risk for serious illness caused by COVID-19: You are more likely to get seriously ill from the COVID-19 virus if: ? You have cancer. ? You have a long-term (chronic) disease, such as: ? Chronic lung disease. This includes pulmonary embolism, chronic obstructive pulmonary disease, and cystic fibrosis. ? Long-term disease that lowers your body's ability to fight infection (immunocompromise). ? Serious cardiac conditions, such as heart failure, coronary artery disease, or cardiomyopathy. ? Diabetes. ? Chronic kidney disease. ? Liver diseases. These include cirrhosis, nonalcoholic fatty liver disease, alcoholic liver disease, or autoimmune hepatitis. ? You have obesity. ? You are or were recently . ? You have sickle cell disease. What are the signs or symptoms? Symptoms of this condition can range from mild to severe. Symptoms may appear any time from 2 to 14 days after being exposed to the virus. They include: ? Fever or chills. ? Shortness of breath or trouble breathing. ? Feeling tired or very tired. ? Headaches, body aches, or muscle aches. ? Runny or stuffy nose, sneezing, coughing, or sore throat. ? New loss of taste or smell. This is rare. Some people may also have stomach problems, such as nausea, vomiting, or diarrhea. Other people may not have any symptoms of COVID-19. How is this diagnosed? This condition may be diagnosed by testing samples to check for the COVID-19 virus. The most common tests are the PCR test and the antigen test. Tests may be done in the lab or at home. They include: ? Using a swab to take a sample of fluid from the back of your nose and throat (nasopharyngeal fluid), from your nose, or from your throat. ? Testing a sample of saliva from your mouth. ? Testing a sample of coughed-up mucus from your lungs (sputum). How is this treated? Treatment for COVID-19 infection depends on the severity of the condition. ? Mild symptoms can be managed at home with rest, fluids, and sbkx-ujf-ajqrvju medicines. ? Serious symptoms may be treated in a hospital intensive care unit (ICU). Treatment in the ICU may include: ? Supplemental oxygen. Extra oxygen is given through a tube in the nose, a face mask, or a garrido. ? Medicines. These may include: ? Antivirals, such as monoclonal antibodies. These help your body fight off certain viruses that can cause disease. ? Anti-inflammatories, such as corticosteroids. These reduce inflammation and suppress the immune system. ? Antithrombotics. These prevent or treat blood clots, if they develop. ? Convalescent plasma. This helps boost your immune system, if you have an underlying immunosuppressive condition or are getting immunosuppressive treatments. ? Prone positioning. This means you will lie on your stomach. This helps oxygen to get into your lungs. ? Infection control measures. If you are at risk for more serious illness caused by COVID-19, your health care provider may prescribe two long-acting monoclonal antibodies, given together every 6 months. How is this prevented? To protect yourself: ? Use preventive medicine (pre-exposure prophylaxis). You may get pre-exposure prophylaxis if you have moderate or severe immunocompromise. ? Get vaccinated. Anyone 6 months old or older who meets guidelines can get a COVID-19 vaccine or vaccine series. This includes people who are or making breast milk (lactating). ? Get an added dose of COVID-19 vaccine after your first vaccine or vaccine series if you have moderate to severe immunocompromise. This applies if you have had a solid organ transplant or have been diagnosed with an immunocompromising condit (more content not included)... [facility] 08-25-2023 Hospital Discharge instructions Follow Up Care 08/25/2023 13:46:57 With:Seymour Waller DO, [facility] Address: [address] [place] [address]- When:6 months Comments:6 MONTHS ROUTINE FOLLOWUP [facility] 05-24-2023 Hospital Discharge instructions Patient Education 05/24/2023 21:30:59 BMI for Adults BMI for Adults What is BMI? Body mass index (BMI) is a number that is calculated from a person's weight and height. BMI can help estimate how much of a person's weight is composed of fat. BMI does not measure body fat directly. Rather, it is an alternative to procedures that directly measure body fat, which can be difficult and expensive. BMI can help identify people who may be at higher risk for certain medical problems. What are BMI measurements used for? BMI is used as a screening tool to identify possible weight problems. It helps determine whether a person is obese, overweight, a healthy weight, or underweight. BMI is useful for: Identifying a weight problem that may be related to a medical condition or may increase the risk for medical problems. Promoting changes, such as changes in diet and exercise, to help reach a healthy weight. BMI screening can be repeated to see if these changes are working. How is BMI calculated? BMI involves measuring your weight in relation to your height. Both height and weight are measured, and the BMI is calculated from those numbers. This can be done either in [place] or metric measurements. Note that charts and online BMI calculators are available to help you find your BMI quickly and easily without having to do these calculations yourself. To calculate your BMI in [place] measurements: 1.Measure your weight in pounds (lb). 2.Multiply the number of pounds by 703. For example, for a person who weighs 180 lb, multiply that number by 703, which equals 126,540. 3.Measure your height in inches. Then multiply that number by itself to get a measurement called inches squared. For example, for a person who is 70 inches tall, the inches squared measurement is 70 inches x 70 inches, which equals 4,900 inches squared. 4.Divide the total from step 2 (number of lb x 703) by the total from step 3 (inches squared): 126,540 4,900 = 25.8. This is your BMI. To calculate your BMI in metric measurements: 1.Measure your weight in kilograms (kg). 2.Measure your height in meters (m). Then multiply that number by itself to get a measurement called meters squared. For example, for a person who is 1.75 m tall, the meters squared measurement is 1.75 m x 1.75 m, which is equal to 3.1 meters squared. 3.Divide the number of kilograms (your weight) by the meters squared number. In this example: 70 3.1 = 22.6. This is your BMI. What do the results mean? BMI charts are used to identify whether you are underweight, normal weight, overweight, or obese. The following guidelines will be used: Underweight: BMI less than 18.5. Normal weight: BMI between 18.5 and 24.9. Overweight: BMI between 25 and 29.9. Obese: BMI of 30 or above. Keep these notes in mind: Weight includes both fat and muscle, so someone with a muscular build, such as an athlete, may have a BMI that is higher than 24.9. In cases like these, BMI is not an accurate measure of body fat. To determine if excess body fat is the cause of a BMI of 25 or higher, further assessments may need to be done by a health care provider. BMI is usually interpreted in the same way for men and women. Where to find more information For more information about BMI, including tools to quickly calculate your BMI, go to these websites: Centers for Disease Control and Prevention: www.cdc.gov [place] [employer]: www.heart.org National Heart, Lung, and Blood [employer]: www.nhlbi.nih.gov Summary Body mass index (BMI) is a number that is calculated from a person's weight and height. BMI may help estimate how much of a person's weight is composed of fat. BMI can help identify those who may be at higher risk for certain medical problems. BMI can be measured using [place] measurements or metric measurements. BMI charts are used to identify whether you are underweight, normal weight, overweight, or obese. This information is not intended to replace advice given to you by your health care provider. Make sure you discuss any questions you have with your health care provider. Document Revised: 01/01/2020 Document Reviewed: 11/08/2019 [employer] Patient Education 2022 [employer]. 05/24/2023 21:30:35 Acute Bronchitis, Adult Acute Bronchitis, Adult Acute bronchitis is sudden inflammation of the main airways (bronchi) that come off the windpipe (trachea) in the lungs. The swelling causes the airways to get smaller and make more mucus than normal. This can make it hard to breathe and can cause coughing or noisy breathing (wheezing). Acute bronchitis may last several weeks. The cough may last longer. Allergies, asthma, and exposure to smoke may make the condition worse. What are the causes? This condition can be caused by germs and by substances that irritate the lungs, including: Cold and flu viruses. The most common cause of this condition is the virus that causes the common cold. Bacteria. This is less common. Breathing in substances that irritate the lungs, including: ?Smoke from cigarettes and other forms of tobacco. ?Dust and pollen. ?Fumes from household cleaning products, gases, or burned fuel. ?Indoor or outdoor air pollution. What increases the risk? The following factors may make you more likely to develop this condition: A weak body's defense system, also called the immune system. A condition that affects your lungs and breathing, such as asthma. What are the signs or symptoms? Common symptoms of this condition include: Coughing. This may bring up clear, yellow, or green mucus from your lungs (sputum). Wheezing. Runny or stuffy nose. Having too much mucus in your lungs (chest congestion). Shortness of breath. Aches and pains, including sore throat or chest. How is this diagnosed? This condition is usually diagnosed based on: Your symptoms and medical history. A physical exam. You may also have other tests, including tests to rule out other conditions, such as pneumonia. These tests include: A test of lung function. Test of a mucus sample to look for the presence of bacteria. Tests to check the oxygen level in your blood. Blood tests. Chest X-ray. How is this treated? Most cases of acute bronchitis clear up over time without treatment. Your health care provider may recommend: Drinking more fluids to help thin your mucus so it is easier to cough up. Taking inhaled medicine (inhaler) to improve air flow in and out of your lungs. Using a vaporizer or a humidifier. These are machines that add water to the air to help you breathe better. Taking a medicine that thins mucus and clears congestion (expectorant). Taking a medicine that prevents or stops coughing (cough suppressant). It is not common to take an antibiotic medicine for this condition. Follow these instructions at home: Take nuds-bwq-vvdtbwg and prescription medicines only as told by your health care provider. Use an inhaler, vaporizer, or humidifier as told by your health care provider. Take two teaspoons (10 mL) of honey at bedtime to lessen coughing at night. Drink enough fluid to keep your urine pale yellow. Do not use any products that contain nicotine or tobacco. These products include cigarettes, chewing tobacco, and vaping devices, such as e-cigarettes. If you need help quitting, ask your health care provider. Get plenty of rest. Return to your normal activities as told by your health care provider. Ask your health care provider what activities are safe for you. Keep all follow-up visits. This is important. How is this prevented? To lower your risk of getting this condition again: Wash your hands often with soap and water for at least 20 seconds. If soap and water are not available, use hand assembler dry cell and battery. Avoid contact with people who have cold symptoms. Try not to touch your mouth, nose, or eyes with your hands. Avoid breathing in smoke or chemical fumes. Breathing smoke or chemical fumes will make your condition worse. Get the flu shot every year. Contact a health care provider if: Your symptoms do not improve after 2 weeks. You have trouble coughing up the mucus. Your cough keeps you awake at night. You have a fever. Get help right away if you: Cough up blood. Feel pain in your chest. Have severe shortness of breath. Faint or keep feeling like you are going to faint. Have a severe headache. Have a fever or chills that get worse. These symptoms may represent a serious problem that is an emergency. Do not wait to see if the symptoms will go away. Get medical help right away. Call your local emergency services (911 in the [place] Do not drive yourself to the hospital. Summary Acute bronchitis is inflammation of the main airways (bronchi) that come off the windpipe (trachea) in the lungs. The swelling causes the airways to get smaller and make more mucus than normal. Drinking more fluids can help thin your mucus so it is easier to cough up. Take kkcl-yor-rurfvpt and prescription medicines only as told by your health care provider. Do not use any products that contain nicotine or tobacco. These products include cigarettes, chewing tobacco, and vaping devices, such as e-cigarettes. If you need help quitting, ask your health care provider. Contact a health care provider if your symptoms do not improve after 2 weeks. This information is not intended to replace advice given to you by your health care provider. Make sure you discuss any questions you have with your health care provider. Document Revised: 07/21/2022 Document Reviewed: 08/11/2021 [employer] Patient Education 2022 [email or web address]. Follow Up Care 05/24/2023 12:54:17 With:Seymour Waller DO, [facility] Address: [address] [address]- When: Unknown [facility] 03-05-2023 Hospital Discharge instructions Patient Education 03/05/2023 16:52:51 BMI for Adults BMI for Adults What is BMI? Body mass index (BMI) is a number that is calculated from a person's weight and height. BMI can help estimate how much of a person's weight is composed of fat. BMI does not measure body fat directly. Rather, it is an alternative to procedures that directly measure body fat, which can be difficult and expensive. BMI can help identify people who may be at higher risk for certain medical problems. What are BMI measurements used for? BMI is used as a screening tool to identify possible weight problems. It helps determine whether a person is obese, overweight, a healthy weight, or underweight. BMI is useful for: Identifying a weight problem that may be related to a medical condition or may increase the risk for medical problems. Promoting changes, such as changes in diet and exercise, to help reach a healthy weight. BMI screening can be repeated to see if these changes are working. How is BMI calculated? BMI involves measuring your weight in relation to your height. Both height and weight are measured, and the BMI is calculated from those numbers. This can be done either in [place] or metric measurements. Note that charts and online BMI calculators are available to help you find your BMI quickly and easily without having to do these calculations yourself. To calculate your BMI in [place] measurements: 1.Measure your weight in pounds (lb). 2.Multiply the number of pounds by 703. For example, for a person who weighs 180 lb, multiply that number by 703, which equals 126,540. 3.Measure your height in inches. Then multiply that number by itself to get a measurement called inches squared. For example, for a person who is 70 inches tall, the inches squared measurement is 70 inches x 70 inches, which equals 4,900 inches squared. 4.Divide the total from step 2 (number of lb x 703) by the total from step 3 (inches squared): 126,540 4,900 = 25.8. This is your BMI. To calculate your BMI in metric measurements: 1.Measure your weight in kilograms (kg). 2.Measure your height in meters (m). Then multiply that number by itself to get a measurement called meters squared. For example, for a person who is 1.75 m tall, the meters squared measurement is 1.75 m x 1.75 m, which is equal to 3.1 meters squared. 3.Divide the number of kilograms (your weight) by the meters squared number. In this example: 70 3.1 = 22.6. This is your BMI. What do the results mean? BMI charts are used to identify whether you are underweight, normal weight, overweight, or obese. The following guidelines will be used: Underweight: BMI less than 18.5. Normal weight: BMI between 18.5 and 24.9. Overweight: BMI between 25 and 29.9. Obese: BMI of 30 or above. Keep these notes in mind: Weight includes both fat and muscle, so someone with a muscular build, such as an athlete, may have a BMI that is higher than 24.9. In cases like these, BMI is not an accurate measure of body fat. To determine if excess body fat is the cause of a BMI of 25 or higher, further assessments may need to be done by a health care provider. BMI is usually interpreted in the same way for men and women. Where to find more information For more information about BMI, including tools to quickly calculate your BMI, go to these websites: Centers for Disease Control and Prevention: www.cdc.gov [place] [employer] Association: www.heart.org National Heart, Lung, and Blood Hunter: www.nhlbi.nih.gov Summary Body mass index (BMI) is a number that is calculated from a person's weight and height. BMI may help estimate how much of a person's weight is composed of fat. BMI can help identify those who may be at higher risk for certain medical problems. BMI can be measured using [place] measurements or metric measurements. BMI charts are used to identify whether you are underweight, normal weight, overweight, or obese. This information is not intended to replace advice given to you by your health care provider. Make sure you discuss any questions you have with your health care provider. Document Revised: 01/01/2020 Document Reviewed: 11/08/2019 [employer] Patient Education 2022 [employer]. 03/05/2023 16:52:49 Rapid Strep Test Rapid Strep Test Why am I having this test? A rapid strep test is used to check for strep throat. Strep throat is a bacterial infection caused by the bacteria Streptococcus pyogenes. A rapid strep test is the quickest way to check if these bacteria are causing your sore throat. You may have this test if: You have throat pain or neck swelling and tenderness. You have a fever. You have a red throat with yellow or white spots. You experience loss of appetite. You have trouble breathing or painful swallowing. You have a rash. You are dehydrated. The test can be done at your health care provider's office. Results are usually ready in about 20 minutes. What is being tested? This test checks for the presence of the Streptococcus pyogenes bacteria. What kind of sample is taken? This test requires a sample of fluid from the back of your throat and tonsils. Your health care provider may hold down your tongue with a tongue depressor and use a swab to collect the sample. Your health care provider may collect a second sample at the same time. The second sample may be used for a throat culture. In a culture test, the sample is combined with a substance that encourages bacteria to grow. It takes longer to get the results of the throat culture test, but they are more accurate. A culture test can confirm the results from a rapid strep test, or it may show that the results were wrong. How are the results reported? Your test results will be reported as either positive or negative for the bacteria that cause strep throat. What do the results mean? Talk with your health care provider about what your results mean. In some cases, your health care provider may do more testing to confirm the results. If the result of your rapid strep test is negative, it means that: It is likely that you do not have strep throat. A virus may be causing your sore throat. If the result of your rapid strep test is positive, it means that: It is likely that you do have strep throat. You may have to take antibiotic medicine. Talk with your health care provider about what your results mean. Your health care provider may do a throat culture to confirm the results of the rapid strep test. The throat culture can also identify the different strains of bacteria that are present. Questions to ask your health care provider Ask your health care provider, or the department that is doing the test: When will my results be ready? How will I get my results? What are my treatment options? What other tests do I need? What are my next steps? Summary A rapid strep test is used to check for strep throat. Strep throat is a bacterial infection caused by the bacteria Streptococcus pyogenes. A rapid strep test is the quickest way to check if these bacteria are causing your sore throat. The test can be done at your health care provider's office. Results are usually ready in about 20 minutes. This test requires a sample of fluid from the back of your throat and tonsils. Your health care provider may hold down your tongue with a tongue depressor and use a swab to collect the sample. Your test results will be reported as either positive or negative for the bacteria that cause strep throat. This information is not intended to replace advice given to you by your health care provider. Make sure you discuss any questions you have with your health care provider. Document Revised: 08/03/2021 Document Reviewed: 08/03/2021 [employer] Patient Education 2022 [employer]. 03/05/2023 16:52:48 Pharyngitis Pharyngitis Pharyngitis is inflammation of the throat (pharynx). It is a very common cause of sore throat. Pharyngitis can be caused by a bacteria, but it is usually caused by a virus. Most cases of pharyngitis get better on their own without treatment. What are the causes? This condition may be caused by: Infection by viruses (viral). Viral pharyngitis spreads easily from person to person (is contagious) through coughing, sneezing, and sharing of personal items or utensils such as cups, forks, spoons, and toothbrushes. Infection by bacteria (bacterial). Bacterial pharyngitis may be spread by touching the nose or face after coming in contact with the bacteria, or through close contact, such as kissing. Allergies. Allergies can cause buildup of mucus in the throat (post-nasal drip), leading to inflammation and irritation. Allergies can also cause blocked nasal passages, forcing breathing through the mouth, which dries and irritates the throat. What increases the risk? You are more likely to develop this condition if: You are 5 24 years old. You are exposed to crowded environments such as daycare, school, or dormitory living. You live in a cold climate. You have a weakened disease-fighting (immune) system. What are the signs or symptoms? Symptoms of this condition vary by the cause. Common symptoms of this condition include: Sore throat. Fatigue. Low-grade fever. Stuffy nose (nasal congestion) and cough. Headache. Other symptoms may include: Glands in the neck (lymph nodes) that are swollen. Skin rashes. Plaque-like film on the throat or tonsils. This is often a symptom of bacterial pharyngitis. Vomiting. Red, itchy eyes (conjunctivitis). Loss of appetite. Joint pain and muscle aches. Enlarged tonsils. How is this diagnosed? This condition may be diagnosed based on your medical history and a physical exam. Your health care provider will ask you questions about your illness and your symptoms. A swab of your throat may be done to check for bacteria (rapid strep test). Other lab tests may also be done, depending on the suspected cause, but these are rare. How is this treated? Many times, treatment is not needed for this condition. Pharyngitis usually gets better in 3 4 days without treatment. Bacterial pharyngitis may be treated with antibiotic medicines. Follow these instructions at home: Medicines Take gkqq-wzn-bmainhq and prescription medicines only as told by your health care provider. If you were prescribed an antibiotic medicine, take it as told by your health care provider. Do not stop taking the antibiotic even if you start to feel better. Use throat sprays to soothe your throat as told by your health care provider. Children can get pharyngitis. Do not give your child aspirin because of the association with Olinda's syndrome. Managing pain To help with pain, try: Sipping warm liquids, such as broth, herbal tea, or warm water. Eating or drinking cold or frozen liquids, such as frozen ice pops. Gargling with a mixture of salt and water 3 4 times a day or as needed. To make salt water, completely dissolve 1 tsp (3 6 g) of salt in 1 cup (237 mL) of warm water. Sucking on hard candy or throat lozenges. Putting a cool-mist humidifier in your bedroom at night to moisten the air. Sitting in the bathroom with the door closed for 5 10 minutes while you run hot water in the shower. General instructions Do not use any products that contain nicotine or tobacco. These products include cigarettes, chewing tobacco, and vaping devices, such as e-cigarettes. If you need help quitting, ask your health care provider. Rest as told by your health care provider. Drink enough fluid to keep your urine pale yellow. How is this prevented? To help prevent becoming infected or spreading infection: Wash your hands often with soap and water for at least 20 seconds. If soap and water are not available, use hand assembler dry cell and battery. Do not touch your eyes, nose, or mouth with unwashed hands, and wash hands after touching these areas. Do not share cups or eating utensils. Avoid close contact with people who are sick. Contact a health care provider if: You have large, tender lumps in your neck. You have a rash. You cough up green, yellow-brown, or bloody mucus. Get help right away if: Your neck becomes stiff. You drool or are unable to swallow liquids. You cannot drink or take medicines without vomiting. You have severe pain that does not go away, even after you take medicine. You have trouble breathing, and it is not caused by a stuffy nose. You have new pain and swelling in your joints such as the knees, ankles, wrists, or elbows. These symptoms may represent a serious problem that is an emergency. Do not wait to see if the symptoms will go away. Get medical help right away. Call your local emergency services (911 in the [place] Do not drive yourself to the hospital. Summary Pharyngitis is redness, pain, and swelling (inflammation) of the throat (pharynx). While pharyngitis can be caused by a bacteria, the most common causes are viral. Most cases of pharyngitis get better on their own without treatment. Bacterial pharyngitis is treated with antibiotic medicines. This information is not intended to replace advice given to you by your health care provider. Make sure you discuss any questions you have with your health care provider. Document Revised: 07/07/2021 Document Reviewed: 07/07/2021 [employer] Patient Education 2022 [employer]. 03/05/2023 16:52:47 Upper Respiratory Infection, Adult Upper Respiratory Infection, Adult An upper respiratory infection (URI) is a common viral infection of the nose, throat, and upper air passages that lead to the lungs. The most common type of URI is the common cold. URIs usually get better on their own, without medical treatment. What are the causes? A URI is caused by a virus. You may catch a virus by: Breathing in droplets from an infected person's cough or sneeze. Touching something that has been exposed to the virus (is contaminated) and then touching your mouth, nose, or eyes. What increases the risk? You are more likely to get a URI if: You are very young or very old. You have close contact with others, such as at work, school, or a health care facility. You smoke. You have long-term (chronic) heart or lung disease. You have a weakened disease-fighting system (immune system). You have nasal allergies or asthma. You are experiencing a lot of stress. You have poor nutrition. What are the signs or symptoms? A URI usually involves some of the following symptoms: Runny or stuffy (congested) nose. Cough. Sneezing. Sore throat. Headache. Fatigue. Fever. Loss of appetite. Pain in your forehead, behind your eyes, and over your cheekbones (sinus pain). Muscle aches. Redness or irritation of the eyes. Pressure in the ears or face. How is this diagnosed? This condition may be diagnosed based on your medical history and symptoms, and a physical exam. Your health care provider may use a swab to take a mucus sample from your nose (nasal swab). This sample can be tested to determine what virus is causing the illness. How is this treated? URIs usually get better on their own within 7 10 days. Medicines cannot cure URIs, but your health care provider may recommend certain medicines to help relieve symptoms, such as: Kmkt-pps-gpdwlmt cold medicines. Cough suppressants. Coughing is a type of defense against infection that helps to clear the respiratory system, so take these medicines only as recommended by your health care provider. Fever-reducing medicines. Follow these instructions at home: Activity Rest as needed. If you have a fever, stay home from work or school until your fever is gone or until your health care provider says your URI cannot spread to other people (is no longer contagious). Your health care provider may have you wear a face mask to prevent your infection from spreading. Relieving symptoms Gargle with a mixture of salt and water 3 4 times a day or as needed. To make salt water, completely dissolve 1 tsp (3 6 g) of salt in 1 cup (237 mL) of warm water. Use a cool-mist humidifier to add moisture to the air. This can help you breathe more easily. Eating and drinking Drink enough fluid to keep your urine pale yellow. Eat soups and other clear broths. General instructions Take ebaw-sid-bvzkran and prescription medicines only as told by your health care provider. These include cold medicines, fever reducers, and cough suppressants. Do not use any products that contain nicotine or tobacco. These products include cigarettes, chewing tobacco, and vaping devices, such as e-cigarettes. If you need help quitting, ask your health care provider. Stay away from secondhand smoke. Stay up to date on all immunizations, including the yearly (annual) flu vaccine. Keep all follow-up visits. This is important. How to prevent the spread of infection to others URIs can be contagious. To prevent the infection from spreading: Wash your hands with soap and water for at least 20 seconds. If soap and water are not available, use hand assembler dry cell and battery. Avoid touching your mouth, face, eyes, or nose. Cough or sneeze into a tissue or your sleeve or elbow instead of into your hand or into the air. Contact a health care provider if: You are getting worse instead of better. You have a fever or chills. Your mucus is brown or red. You have yellow or brown discharge coming from your nose. You have pain in your face, especially when you bend forward. You have swollen neck glands. You have pain while swallowing. You have white areas in the back of your throat. Get help right away if: You have shortness of breath that gets worse. You have severe or persistent: ?Headache. ?Ear pain. ?Sinus pain. ?Chest pain. You have chronic lung disease along with any of the following: ?Making high-pitched whistling sounds when you breathe, most often when you breathe out (wheezing). ?Prolonged cough (more than 14 days). ?Coughing up blood. ?A change in your usual mucus. You have a stiff neck. You have changes in your: ?Vision. ?Hearing. ?Thinking. ?Mood. These symptoms may be an emergency. Get help right away. Call 911. Do not wait to see if the symptoms will go away. Do not drive yourself to the hospital. Summary An upper respiratory infection (URI) is a common infection of the nose, throat, and upper air passages that lead to the lungs. A URI is caused by a virus. URIs usually get better on their own within 7 10 days. Medicines cannot cure URIs, but your health care provider may recommend certain medicines to help relieve symptoms. This information is not intended to replace advice given to you by your health care provider. Make sure you discuss any questions you have with your health care provider. Document Revised: 11/10/2021 Document Reviewed: 11/10/2021 [employer] Patient Education 2022 [employer]. 03/05/2023 14:44:26 BMI for Adults BMI for Adults What is BMI? Body mass index (BMI) is a number that is calculated from a person's weight and height. BMI can help estimate how much of a person's weight is composed of fat. BMI does not measure body fat directly. Rather, it is an alternative to procedures that directly measure body fat, which can be difficult and expensive. BMI can help identify people who may be at higher risk for certain medical problems. What are BMI measurements used for? BMI is used as a screening tool to identify possible weight problems. It helps determine whether a person is obese, overweight, a healthy weight, or underweight. BMI is useful for: Identifying a weight problem that may be related to a medical condition or may increase the risk for medical problems. Promoting changes, such as changes in diet and exercise, to help reach a healthy weight. BMI screening can be repeated to see if these changes are working. How is BMI calculated? BMI involves measuring your weight in relation to your height. Both height and weight are measured, and the BMI is calculated from those numbers. This can be done either in [place] or metric measurements. Note that charts and online BMI calculators are available to help you find your BMI quickly and easily without having to do these calculations yourself. To calculate your BMI in [place] measurements: 1.Measure your weight in pounds (lb). 2.Multiply the number of pounds by 703. For example, for a person who weighs 180 lb, multiply that number by 703, which equals 126,540. 3.Measure your height in inches. Then multiply that number by itself to get a measurement called inches squared. For example, for a person who is 70 inches tall, the inches squared measurement is 70 inches x 70 inches, which equals 4,900 inches squared. 4.Divide the total from step 2 (number of lb x 703) by the total from step 3 (inches squared): 126,540 4,900 = 25.8. This is your BMI. To calculate your BMI in metric measurements: 1.Measure your weight in kilograms (kg). 2.Measure your height in meters (m). Then multiply that number by itself to get a measurement called meters squared. For example, for a person who is 1.75 m tall, the meters squared measurement is 1.75 m x 1.75 m, which is equal to 3.1 meters squared. 3.Divide the number of kilograms (your weight) by the meters squared number. In this example: 70 3.1 = 22.6. This is your BMI. What do the results mean? BMI charts are used to identify whether you are underweight, normal weight, overweight, or obese. The following guidelines will be used: Underweight: BMI less than 18.5. Normal weight: BMI between 18.5 and 24.9. Overweight: BMI between 25 and 29.9. Obese: BMI of 30 or above. Keep these notes in mind: Weight includes both fat and muscle, so someone with a muscular build, such as an athlete, may have a BMI that is higher than 24.9. In cases like these, BMI is not an accurate measure of body fat. To determine if excess body fat is the cause of a BMI of 25 or higher, further assessments may need to be done by a health care provider. BMI is usually interpreted in the same way for men and women. Where to find more information For more information about BMI, including tools to quickly calculate your BMI, go to these websites: Centers for Disease Control and Prevention: www.cdc.gov [place] [employer]: www.heart.org National Heart, Lung, and Blood Hunter: www.nhlbi.nih.gov Summary Body mass index (BMI) is a number that is calculated from a person's weight and height. BMI may help estimate how much of a person's weight is composed of fat. BMI can help identify those who may be at higher risk for certain medical problems. BMI can be measured using [place] measurements or metric measurements. BMI charts are used to identify whether you are underweight, normal weight, overweight, or obese. This information is not intended to replace advice given to you by your health care provider. Make sure you discuss any questions you have with your health care provider. Document Revised: 01/01/2020 Document Reviewed: 11/08/2019 [employer] Patient Education 2022 [employer]. Follow Up Care 03/05/2023 13:04:11 With:Seymour Waller DO [facility] [address] [facility] [address] [place] [address] When: Unknown [facility] 12-21-2022 Hospital Discharge instructions Follow Up Care 12/21/2022 10:25:56 With:Crystal Valdez Address: [email or web address] When:Within 1 Week(s) Comments:for BH therapy [facility] 12-16-2022 Hospital Discharge instructions Follow Up Care 12/16/2022 15:16:23 With:Crystal Valdez Address: [email or web address] When:Within 1 Week(s) Comments:Please call if you need to reschedule [facility] Evaluation + Plan note No data available for this section [facility] Evaluation + Plan note Future Appointments Appointment Date:12/28/2022 09:00:00 AM Scheduled Provider:Crystal Valdez Location:[facility] Appointment Type:BH Therapy 60 [facility] Evaluation + Plan note Future Appointments Appointment Date:01/04/2023 10:00:00 AM Scheduled Provider:Crystal Valdez Location:[facility] Appointment Type:BH Therapy 60 [facility] Evaluation + Plan note Future Appointments Appointment Date:01/26/2023 08:00:00 AM Scheduled Provider: Location:[facility] Appointment Type:Surgery FT [facility] Evaluation + Plan note Future Appointments Appointment Date:06/21/2023 09:00:00 AM Scheduled Provider: Location[facility] Appointment Type:[facility] [employer] [facility] Sleep Study Clinic Follow Up (FT) [facility] Evaluation + Plan note Future Appointments Appointment Date:06/21/2023 09:00:00 AM Scheduled Provider: [facility] Type:[facility]PER[facility] Sleep Study Clinic Follow Up (FT) Diagnostic Tests PendingGroup A Strep by PCR 05/24/23 [facility] Evaluation + Plan note Future Appointments Appointment Date:09/04/2023 08:00:00 AM Scheduled Provider:Seymour Waller DO Location:[facility] Appointment Type:FM New Patient - Adult [facility] Evaluation + Plan note Future Appointments Appointment Date:03/04/2024 08:40:00 AM Scheduled Provider:Seymoru Waller DO Location:[facility] Appointment Type: Open [facility] [place] Evaluation + Plan note Future Appointments Appointment Date:03/04/2024 08:40:00 AM Scheduled Provider:Seymour Waller DO Location:[facility] Appointment Type: Open Future Scheduled TestsUrine Culture 11/26/23 [facility] Evaluation note Diagnosis Pneumonia due to COVID-19 virus- Primary Dehydration Nausea and vomiting, intractability of vomiting not specified, unspecified vomiting type documented in this encounter [employer] Work Phone: evaluation note* Diagnosis Nontoxic multinodular goiter (CMS/HCC)- Primary Nontoxic multinodular goiter Papillary thyroid carcinoma (CMS/HCC) Weight gain Other symptoms concerning nutrition, metabolism, and development documented in this encounter [facility] HealthcareEvaluation note* Diagnosis Allergic contact dermatitis, unspecified trigger Generalized anxiety disorder Primary hypertension Unspecified essential hypertension Screening for deficiency anemia Screening for other and unspecified deficiency anemia Encounter for screening examination for impaired glucose regulation and diabetes mellitus Screening for hyperlipidemia Screening for lipoid disorders Encounter for vitamin deficiency screening Screening for other and unspecified endocrine, nutritional, metabolic, and immunity disorders Papillary thyroid carcinoma Malignant neoplasm of thyroid gland [facility] Neoplasm of unspecified behavior of bone, soft tissue, and skin documented in this encounter [facility] HealthcareEvaluation note* Diagnosis Other specified dermatitis- Primary Encounter for removal of sutures Dermatographism Dermatographic urticaria documented in this encounter [facility] HealthcareEvaluation note* Diagnosis Dysuria [facility] Attachments The following attachments cannot be sent through Care Everywhere. * Coronavirus Disease (COVID-19): Isolation ([place]) [facility] [employer] Work Phone: Hospital Discharge instructions No data available for this section [facility] No data available for this section [facility] Summary Purpose Family History No Family History Records FoundNo Family History Records FoundNo Family History Records Found No data available for this section No Family History Records FoundNo Family History Records Found No data available for this section No data available for this section No data available for this section No data available for this section No data available for this section No data available for this section No data available for this section No data available for this section No data available for this section No data available for this section No data available for this section No Family History Records FoundNo Family History Records FoundNo Family History Records FoundNo Family History Records Found Advance Directives No Advanced Directives Records FoundDocuments on File Type Date Recorded Patient Colorman Expl anation Advance Directives and Living Will Documents on File Type Date Recorded Patient Colorman Expl anation Advance Directives and Living Will Power of Entry Driver Operator Documents on File Type Date Recorded Patient Colorman Expl anation ACP-Advance Directive ACP-Power of Entry Driver Operator Instructions * Patient Instructions* Stephanie Doss, TONY - 05/13/2019 6:42 PM EST I am glad that we could help you with your Migraine today. Recommend getting established with a primary care provider. A provider may be able to further evaluate and treat your recurrent migraines. Continue your typical migraine medications as needed. Recommend resting the rest of today. REMEMBER, IF YOUR HEADACHE IS THE WORST HEADACHE THAT YOU HAVE EVER EXPERIENCED OR A 'THUNDERCLAP' HEADACHE (MEANS INSTANT SEVERE ONSET) GO DIRECTLY TO THE ER. Reduce caffeine intake, get enough sleep and eat regularly including breakfast. Avoid stress when able. Your blood pressure is elevated today and may be a result of your headache, though elevated blood pressure too can cause a headache. Your blood pressure needs to be rechecked and should be under 140/90. Again getting established with a primary care provider would be beneficial to follow-up your blood pressure. Migraine Headache: Care Instructions Your Care Instructions Migraines are painful, throbbing headaches that often start on one side of the head. They may causenausea and vomiting and make you sensitive to light, sound, or smell. Without treatment, migraines can last from 4 hours to a few days. Medicines can help prevent migraines or stop them after they have started. Your doctor can help you find which ones work best for you. Follow-up care is a blair part of your treatment and safety. Be sure to make and go to all appointments, and call your doctor if you are having problems. It's also a good idea to know your test resultsand keep a list of the medicines you take. How can you care for yourself at home? Do not drive if you have taken a prescription pain medicine. Rest in a quiet, dark room until your headache is gone. Close your eyes, and try to relax or go to sleep. Don't watch TV or read. Put a cold, moist cloth or cold pack on the painful area for 10 to 20 minutes at a time. Put a thincloth between the cold pack and your skin. Use a warm, moist towel or a heating pad set on low to relax tight shoulder and neck muscles. Have someone gently massage your neck and shoulders. Take your medicines exactly as prescribed. Call your doctor if you think you are having a problem with your medicine. You will get more details on the specific medicines your doctor prescribes. Be careful not to take pain medicine more often than the instructions allow. You could get worse ormore frequent headaches when the medicine wears off. To prevent migraines Keep a headache diary so you can figure out what triggers your headaches. Avoiding triggers may help you prevent headaches. Record when each headache began, how long it lasted, and what the pain was like. (Was it throbbing, aching, stabbing, or dull?) Write down any other symptoms you had with the h eadache, such as nausea, flashing lights or dark spots, or sensitivity to bright light or loud noise. Note if the headache occurred near your period. List anything that might have triggered the headache. Triggers may include certain foods (chocolate, cheese, wine) or odors, smoke, bright light, stress, or lack of sleep. If your doctor has prescribed medicine for your migraines, take it as directed. You may have medicine that you take only when you get a migraine and medicine that you take all the time to help prevent migraines. ? If your doctor has prescribed medicine for when you get a headache, take it at the first sign of a migraine, unless your doctor has given you other instructions. ? If your doctor has prescribed medicine to prevent migraines, take it exactly as prescribed. Call your doctor if you think you are having a problem with your medicine. Find healthy ways to deal with stress. Migraines are most common during or right after stressful times. Take time to relax before and after you do something that has caused a migraine in the past. Try to keep your muscles relaxed by keeping good posture. Check your jaw, face, neck, and shoulder muscles for tension. Try to relax them. When you sit at a desk, change positions often. And make sure to stretch for 30 seconds each hour. Get plenty of sleep and exercise. Eat meals on a regular schedule. Avoid foods and drinks that often trigger migraines. These includechocolate, alcohol (especially red wine and port), aspartame, monosodium glutamate (MSG), and some additives found in foods (such as hot dogs, allred, cold cuts, aged cheeses, and pickled foods). Limit caffeine. Don't drink too much coffee, tea, or soda. But don't quit caffeine suddenly. That can also give you migraines. Do not smoke or allow others to smoke around you. If you need help quitting, talk to your doctor about stop-smoking programs and medicines. These can increase your chances of quitting for good. If you are taking control pills or hormone therapy, talk to your doctor about whether they are triggering your migraines. When should you call for help? Call 911 anytime you think you may need emergency care. For example, call if: You have signs of a stroke. These may include: ? Sudden numbness, paralysis, or weakness in your face, arm, or leg, especially on only one side ofyour body. ? Sudden vision changes. ? Sudden trouble speaking. ? Sudden confusion or trouble understanding simple statements. ? Sudden problems with walking or balance. ? A sudden, severe headache that is different from past headaches. Call your doctor now or seek immediate medical care if: You have new or worse nausea and vomiting. You have a new or higher fever. Your headache gets much worse. Watch closely for changes in your health, and be sure to contact your doctor if: You are not getting better after 2 days (48 hours). Where can you learn more? Log into your personal health record on https://[employer] and enter U690 in the Education box to learn more about Migraine Headache: Care Instructions. Current as of: July 19, 2018 Content Version: 12.3 0712-4615 [employer]. Care instructions adapted under license by your healthcare professional. If you have questions about a medical condition or this instruction, always ask your healthcare professional. [employer] disclaims any warranty or liability for your use of this information. Elevated Blood Pressure: Care Instructions Your Care Instructions Blood pressure is a measure of how hard the blood pushes against the mendoza of your arteries. It's normal for blood pressure to go up and down throughout the day. But if it stays up over time, you have high blood pressure. Two numbers tell you your blood pressure. The first number is the systolic pressure. It shows how hard the blood pushes when your heart is pumping. The second number is the diastolic pressure. It shows how hard the blood pushes between heartbeats, when your heart is relaxed and filling with blood. An ideal blood pressure in adults is less than 120/80 (say 120 over 80 ). High blood pressure is 140/90 or higher. You have high blood pressure if your top number is 140 or higher or your bottom number is 90 or higher, or both. The main test for high blood pressure is simple, fast, and painless. To diagnose high blood pressure, your doctor will test your blood pressure at different times. After testing your blood pressure, your doctor may ask you to test it again when you are home. If you are diagnosed with high blood pressure, you can work with your doctor to make a long-term plan to manage it. Follow-up care is a blair part of your treatment and safety. Be sure to make and go to all appointments, and call your doctor if you are having problems. It's also a good idea to know your test resultsand keep a list of the medicines you take. How can you care for yourself at home? Do not smoke. Smoking increases your risk for heart attack and stroke. If you need help quitting, talk to your doctor about stop-smoking programs and medicines. These can increase your chances of quitting for good. Stay at a healthy weight. Try to limit how much sodium you eat to less than 2,300 milligrams (mg) a day. Your doctor may ask you to try to eat less than 1,500 mg a day. Be physically active. Get at least 30 minutes of exercise on most days of the week. Walking is a good choice. You also may want to do other activities, such as running, swimming, cycling, or playing tennis or team sports. Avoid or limit alcohol. Talk to your doctor about whether you can drink any alcohol. Eat plenty of fruits, vegetables, and low-fat dairy products. Eat less saturated and total fats. Learn how to check your blood pressure at home. When should you call for help? Call your doctor now or seek immediate medical care if: ? Your blood pressure is much higher than normal (such as 180/110 or higher). ? You think high blood pressure is causing symptoms such as: Severe headache. Blurry vision. ?Watch closely for changes in your health, and be sure to contact your doctor if: ? You do not get better as expected. Where can you learn more? Log into your personal health record on https://[employer] and enter F644 in the Education box to learn more about Elevated Blood Pressure: Care Instructions. Current as of: August 31, 2016 Content Version: 11.6 4616-8639 [employer]. Care instructions adapted under license by your healthcare professional. If you have questions about a medical condition or this instruction, always ask your healthcare professional. [employer] disclaims any warranty or liability for your use of this information. documented in this encounter History of Present Illness * Stephanie Doss CNP - 05/13/2019 5:35 PM EST PATIENT NAME: Kari Humphrey [facility] [address] [facility] [id number] : 1970 DATE OF VISIT: 05/13/2019 #: [id number] PROVIDER: Stephanie Doss CNP Chief Complaint Patient presents with Migraine Pt states migraine since this am SUBJECTIVE 49 y.o. female presents Migraine (Pt states migraine since this am) Denies being the worse headache ever, started today when she woke up at 11:00 it woke me up. Works odd shifts and yesterday worked 3 to 11:00 pm. 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 No fevers. Has a hx of migraines. This resembles her typical migraine. Usually resolves with Fioricet or Excedrin for headaches. Tried Excedrin but vomited. Cannot keep meds down. States maybe once or twice a year it will get this bad. No diagnosis of HTN. Usually my eye and neck always hurt with it. Migraine This is a new problem. The current episode started today. The problem occurs constantly. The problem has been gradually worsening. The pain is located in the right unilateral region. The pain does not radiate. The pain quality is similar to prior headaches. The quality of the pain is described as aching. Associated symptoms include dizziness (a little), eye pain, nausea, neck pain, phonophobia, photophobia and vomiting. Pertinent negatives include no abdominal pain, blurred vision, coughing, drainage, ear pain, eye redness, eye watering, fever, hearing loss, loss of balance, muscle aches, numbness, rhinorrhea, seizures, sinus pressure, sore throat, swollen glands, tingling, tinnitus, visualchange or weakness. The symptoms are aggravated by bright light and noise. Treatments tried: exedrin. The treatment provided no relief. MEDICAL ISSUES Past Medical History: Diagnosis Date Migraines There is no problem list on file for this patient. SOCIAL HISTORY Social History Socioeconomic History Marital status: Spouse name: Not on file Number of children: Not on file Years of education: Not on file Highest education level: Not on file Occupational History Not on file Social Needs Financial resource strain: Not on file Food insecurity Worry: Not on file Inability: Not on file Transportation needs Medical: Not on file Non-medical: Not on file Tobacco Use Smoking status: Never Smoker Smokeless tobacco: Never Used Substance and Sexual Activity Alcohol use: No Drug use: No Sexual activity: Not on file Lifestyle Physical activity Days per week: Not on file Minutes per session: Not on file Stress: Not on file Relationships Social connections Talks on phone: Not on file Gets together: Not on file Attends alevism service: Not on file Active member of club or organization: Not on file Attends meetings of clubs or organizations: Not on file Relationship status: Not on file Other Topics Concern Not on file Social History Narrative Not on file FAMILY HISTORY History reviewed. No pertinent family history. REVIEW OF SYSTEMS Review of Systems Constitutional: Negative for fever. HENT: Negative for ear pain, hearing loss, rhinorrhea, sinus pressure, sore throat and tinnitus. Eyes: Positive for photophobia and pain. Negative for blurred vision and redness. Respiratory: Negative for cough, shortness of breath and wheezing. Cardiovascular: Negative for chest pain and palpitations. Gastrointestinal: Positive for nausea and vomiting. Negative for abdominal pain. Musculoskeletal: Positive for neck pain. Neurological: Positive for dizziness (a little) and headaches. Negative for tingling, tremors, seizures, syncope, facial asymmetry, speech difficulty, weakness, light-headedness, numbness and loss ofbalance. MEDICATIONS PRIOR TO VISIT Current Outpatient Medications on File Prior to Visit Medication Sig Dispense Refill acetaminophen (TYLENOL) 500 MG tablet Take 1,000 mg by mouth every 6 (six) hours as needed . albuterol (PROVENTIL) 2.5 mg /3 mL (0.083 %) nebulizer solution 2.5 mg every 6 (six) hours as needed . busPIRone (BUSPAR) 10 MG tablet Take 10 mg by mouth 3 (three) times a day. busPIRone (BUSPAR) 15 MG tablet poilgohlsm-fljicjezlppgo-cidmtfrf (ESGIC) 50-325-40 mg Take 2 tablets by mouth every 6 (six) hours as needed . cetirizine (ZyrTEC) 10 MG tablet Take by mouth daily . diphenhydrAMINE (BENADRYL) 25 mg capsule Take 50 mg by mouth every 6 (six) hours as needed . DULoxetine (CYMBALTA) 60 MG capsule ibuprofen (ADVIL,MOTRIN) 200 MG tablet Take 600 mg by mouth every 6 (six) hours as needed . triamcinolone (KENALOG) 0.1 % cream Apply topically Three times daily as needed . DULoxetine (CYMBALTA) 20 MG capsule Take 20 mg by mouth daily. No current facility-administered medications on file prior to visit. ALLERGIES/INTOLERANCES No Known Allergies OBJECTIVE Vitals: 05/13/19 1720 05/13/19 1836 BP: (!) 181/97 (!) 165/105 Temp: 97.9 F (36.6 C) Pulse: 86 Resp: 18 SpO2: 95% Body mass index is 37.12 kg/m . 104.3 kg (230 lb) 5' 6 No LMP recorded. Patient has had a hysterectomy. The patient was not asked if she was . Physical Exam Constitutional: She is oriented to person, place, and time. She appears well- developed and well-nourished. Patient holding emesis bag HENT: Right Ear: Tympanic membrane and ear canal normal. Left Ear: Tympanic membrane and ear canal normal. Nose: Nose normal. No mucosal edema or rhinorrhea. Right sinus exhibits no maxillary sinus tenderness and no frontal sinus tenderness. Left sinus exhibits no maxillary sinus tenderness and no frontalsinus tenderness. Mouth/Throat: Oropharynx is clear and moist and mucous membranes are normal. No posterior oropharyngeal edema or posterior oropharyngeal erythema. Eyes: Pupils are equal, round, and reactive to light. Conjunctivae and EOM are normal. Cardiovascular: Normal rate and regular rhythm. Pulmonary/Chest: Effort normal and breath sounds normal. No accessory muscle usage. No respiratory distress. Lymphadenopathy: She has no cervical adenopathy. Neurological: She is alert and oriented to person, place, and time. Coordination and gait normal. GCS eye subscore is 4. GCS verbal subscore is 5. GCS motor subscore is 6. Finger to nose intact. Chin to chest intact Skin: Skin is warm and dry. Psychiatric: She has a normal mood and affect. Nursing note and vitals reviewed. PROCEDURE Procedures Results No results found for this or any previous visit (from the past 168 hour(s)). ASSESSMENT/PLAN (expressed as patient instructions): 1. Intractable migraine without aura and without status migrainosus ketorolac (TORADOL) injection 60 mg 2. Elevated blood pressure reading in office without diagnosis of hypertension may be a result of current migraine. No follow-ups on file. ADDITIONAL CLINICAL COMMENTS Denies thunderclap or worst headache. She has had similar migraine headaches in the past. Toradol effective at reducing headache from 10 to 4 and patient fell asleep in exam room. Declines need for antiemetic. Blood pressure is elevated. Patient has a bp med at home and can recheck when headache resolves. Explained if not <140/90, should get evaluated by primary care provider. ORDERS PLACED THIS VISIT No orders of the defined types were placed in this encounter. MEDICATION LIST AT END OF VISIT Current Outpatient Medications Medication Sig Dispense Refill acetaminophen (TYLENOL) 500 MG tablet Take 1,000 mg by mouth every 6 (six) hours as needed . albuterol (PROVENTIL) 2.5 mg /3 mL (0.083 %) nebulizer solution 2.5 mg every 6 (six) hours as needed . busPIRone (BUSPAR) 10 MG tablet Take 10 mg by mouth 3 (three) times a day. busPIRone (BUSPAR) 15 MG tablet hntrlkxqqw-uqyycgsvwohen-xmreulso (ESGIC) 50-325-40 mg Take 2 tablets by mouth every 6 (six) hours as needed . cetirizine (ZyrTEC) 10 MG tablet Take by mouth daily . diphenhydrAMINE (BENADRYL) 25 mg capsule Take 50 mg by mouth every 6 (six) hours as needed . DULoxetine (CYMBALTA) 60 MG capsule ibuprofen (ADVIL,MOTRIN) 200 MG tablet Take 600 mg by mouth every 6 (six) hours as needed . triamcinolone (KENALOG) 0.1 % cream Apply topically Three times daily as needed . DULoxetine (CYMBALTA) 20 MG capsule Take 20 mg by mouth daily. No current facility-administered medications for this visit. documented in this encounter Assessments Diagnosis Intractable migraine without aura and without status migrainosus Elevated blood pressure reading in office without diagnosis of hypertension Diagnosis Migraine without status migrainosus, not intractable, unspecified migraine type- Primary Discharge Instructions * Attachments The following attachments cannot be sent through Care Everywhere. * Migraine Headache: Recurring ([place]) documented in this encounter Additional Source Comments INFORMATION SOURCE (unrecogn ized section and content) DATE CREATED AUTHOR 10/13/2017 [facility] DATE CREATED AUTHOR AUTHOR'S ORGANIZ ATION 10/17/2017 [facility] DATE CREATED AUTHOR AUTHOR'S ORGANIZ ATION [facility] DATE CREATED AUTHOR AUTHOR'S ORGANIZ ATION 03/14/2023 [facility] DATE CREATED AUTHOR AUTHOR'S ORGANIZ ATION 04/23/2023 [facility] DATE CREATED AUTHOR AUTHOR'S ORGANIZ ATION 03/05/2024 [facility] DATE CREATED AUTHOR AUTHOR'S ORGANIZ ATION 03/11/2024 [facility] [place] [facility] DATE CREATED AUTHOR AUTHOR'S ORGANIZ ATION 08/31/2024 [facility] DATE CREATED AUTHOR AUTHOR'S ORGANIZ ATION 09/25/2024 [facility] Reason for Visit (unrecogniz ed section and content) Reason Comments Migraine Pt states migraine s john this am Reason Comments Migraine has hx- started at 0 800 this AM Reason Comments Emesis pt has had covid for the last ten days and she is c/o N/V/D and coughing so hard her sides hurt Reason Comments Thyroid Nodule Follow up ultrasound [facility] 12/11/23 Reason Comments Rash Specialty Diagnoses / Procedures Referred By Tabatha esposito Referred To Contact Dermatology Diagnoses chronic eczema Procedures office visit Saeed Magallanes MD [address] [place] [id number] Phone: tel: fax: Marion Baker MD [address] [address] Phone: tel: fax: Referral ID Status Reason Start Date Expiration Date Visits Re quested Visits Authorized [id number] Closed 07/30/2024 01/26/2025 1 1 Ordered Prescriptions (unrec ognized section and content) Prescription Sig Dispensed Refills Start Date End Da te ondansetron (ZOFRAN ODT) 4 MG disintegrating tablet Take 1 tablet by mouth every 8 hours as needed for Nausea or Vomiting 12 tablet 0 12/06/2020 azithromycin (ZITHROMAX) 250 MG tabletIndications:Pneum onia due to COVID-19 virus Take 1 tablet by mouth See Admin Instructions for 5 days 500mg on day 1 followed by 250mg on days 2 - 5 6 tablet 0 12/06/2020 12/11/2020 Scheduled Active and Recently Administ ered Medications (unrecognized section and content) Medication Order 12/04/2020 12/05/2020 12/06/2020 0.9 % sodium chloride bolus (COMPLETED) 1,000 mL (9.59 mL/kg), Intravenous, at 1,000 mL/hr, Administer over 1 Hours, ONCE, On 12/06/20 at 1215, For 1 dose, For IV Hydration 1210 (New Bag - Prov ider: Kaitlin Block RN)1310 (Stopped - Provider: Kaitlin Block RN) dexamethasone (PF) (DECADRON) injection 6 mg (COMPLETED) 6 mg, Intravenous, ONCE, On 12/06/20 at 1215, For 1 dose 1210 (Given - Provid er: Kaitlin Block RN) ketorolac (TORADOL) injection 30 mg (COMPLETED) 30 mg, Intravenous, ONCE, On 12/06/20 at 1215, For 1 dose, Do not administer for more than 5 days. 1210 (Given - Provid er: Kaitlin Block RN) ondansetron (ZOFRAN) injection 4 mg (COMPLETED) 4 mg, Intravenous, ONCE, On 12/06/20 at 1215, For 1 dose 1210 (Given - Provid er: Kaitlin Block RN) Patient Care team informatio n (unrecognized section and content) Mailing Machine Assistant Relationship Specialty Start Date End Date Seymour Waller MD [address] [place] [id number] PCP - General Family Medicine 11/16/22 Dolly Cho MD 112 [facility] 130 [place], [place] [id number] Otolaryngology 11/23/22 Mailing Machine Assistant Relationship Specialty Start Date End Date Tonya OconnorBRENDA [address] [place] [address] PCP - General Family Nurse Practitioner 05/28/24 Mailing Machine Assistant Relationship Specialty Start Date End Date Seymour Waller MD [address] [place] [phone] PCP - General Family Medicine 11/16/22 Dolly Cho MD [address] [place] [id number] Otolaryngology 11/23/22 Personnel Name: Seymour Waller DO Address: Address: [address] [place] [id number] Personnel Name: Seymour Waller DO Address: Address: [facility] [address], [facility] 1 [place], [place] [address] FOR RECORDS PERTAINING TO PATIENTS WHO ARE OR HAVE BEEN ENROLLED IN A CHEMICAL DEPENDENCY/SUBSTANCEABUSE PROGRAM, SOME INFORMATION MAY BE OMITTED. This clinical summary was aggregated from multiple sources. Caution should be exercised in using it in the provision of clinical care. This summary normalizes information from multiple sources, and as a consequence, information in this document may materially change the coding, format and clinical context of patient data. In addition, data may be omitted in some cases. CLINICAL DECISIONS SHOULD BE BASED ON THE PRIMARY CLINICAL RECORDS. [place] [facility]. provides no warranty or guarantee of the accuracy or completeness of information in this document.
--- OUTSIDE RECORDS SUMMARY | 2025-01-13 17:38 | XMS_ITS | Encounter Summary ---
Author Organization [facility] Address [address] [place] [address] Care Team Providers Care Forest Landscape Ecology Professor Name Role Phone Link, Seymour PINEDO Primary Care Provider [phone] Dolly Andrade MD Unavailable [phone] Encounter Details Date Type Department Care Team (Late st Contact Info) Description 12/07/2022 Clinisync Result Encounter [facility] External Department Unsolicited Dolly Andrade MD [address] [address] Social History Tobacco Use Types Packs/Day Years [...] on file documented as of this encounter Procedures Procedure Name Priority Date/Time Associated Diagnosis Comments US BIOPSY THYROID 12/07/2022 12: 49 PM EDT documented in this encounter Results * US BIOPSY THYROID (12/07/2022 12:49 PM EDT) Anatomical Region Laterality Modality Other 12/07/2022 12:4 9 PM EDT Narrative 10/20/2023 11:00 AM EDT The [address] [address] Ultrasound Report Signed with Madeline Patient: KARI HUMPHREY MR#: [id number] : 1970 Acct:[id number] Age/Sex: 52 / F ADM Date: 12/07/22 Loc: US Attending Dr: Dolly Andrade M.D. Ordering Physician: Dolly Andrade M.D. Date of Service: 12/07/22 Procedure(s): US biopsy thyroid Accession Number(s): [id number] cc: Physician,Non-Staff Florecita; Dolly Andrade M.D. ADDENDUM [place] [id number] Patient Name: KARI HUMPHREY MRN: [id number] date: 1970 Sex: F Assigned Patient Location: US Current Patient Location: US Accession/Order Number: [id number] Exam Date: 12/07/2022 10:05 Report Date: 12/30/2022 07:29 At the request of: DOLLY ANDRADE Procedure: US biopsy thyroid Begin Addendum #2 COLLECTION DATE: 07 Dec 2022 Nodule (B) Thyroid, Lower Left, 1. 8 cm NODULE B RESULTS SUMMARY The results of this 1. 8 cm Houston III nodule B is Afirma GSC Suspicious which suggests a risk of cancer of approximately 50%. The Risk of Malignancy of a GSC Suspicious Afirma XA negative sample remains approximately 50%. Clinical correlation and surgical resection should be considered. 12/29/[address] Andrade and verified with Dianne that report was present in office. Original Report EXAMINATION: US biopsy thyroid, US biopsy FNA add lesion HISTORY: Left Thyroid Nodule COMPARISON: No relevant comparison available. TECHNIQUE: After obtaining informed consent, an ultrasound-guided biopsy was performed in the usual sterile manner. FINDINGS: Nodule 1: IMAGING: Ultrasound BIOPSY NEEDLE: 25-gauge 2 inch SPECIMEN TYPE, #, LOCATION: 3 fine-needle aspirates left mid lobe thyroid nodule MEDICATION: 2 cc 1% buffered lidocaine COMPLICATIONS: None. LABORATORY: As ordered by Dr. Andrade OTHER: Negative. Nodule 2: IMAGING: Ultrasound BIOPSY NEEDLE: 25-gauge 2 inch SPECIMEN TYPE, #, LOCATION: 3 fine-needle aspirates left lower lobe thyroid nodule MEDICATION: 2 cc 1% buffered lidocaine COMPLICATIONS: None. LABORATORY: As ordered by Dr. Andrade OTHER: Negative. Addendum Dictated By: Lexis Jain M.D. Addendum Signed By: <Electronically signed by Lexis Jain M.D.> 10/20/23 1100 Addendum Cosigned By: DD/ /14/728 TD/TT: / ADDENDUM US/US biopsy thyroid IMPRESSION: Uneventful ultrasound guided biopsy of 2 separate left thyroid nodules. The patient was instructed to obtain follow up care and biopsy results from the referring physician. Electronically authenticated by: LEXIS JAIN Date: 12/30/2022 07:29 Addendum Dictated By: Lexis Jain M.D. Addendum Signed By: <Electronically signed by Lexis Jain M.D.> 10/20/23 1100 Addendum Cosigned By: DD/ /14/728 TD/TT: / [place] [address] Patient Name: KARI HUMPHREY MRN: [id number] date: 1970 Sex: F Assigned Patient Location: US Current Patient Location: Accession/Order Number: [id number] Exam Date: 12/07/2022 10:05 Report Date: 12/07/2022 12:49 At the request of: DOLLY ANDRADE Procedure: US biopsy thyroid EXAMINATION: US biopsy thyroid, US biopsy FNA add lesion HISTORY: Left Thyroid Nodule COMPARISON: No relevant comparison available. TECHNIQUE: After obtaining informed consent, an ultrasound-guided biopsy was performed in the usual sterile manner. FINDINGS: Nodule 1: IMAGING: Ultrasound BIOPSY NEEDLE: 25-gauge 2 inch SPECIMEN TYPE, #, LOCATION: 3 fine-needle aspirates left mid lobe thyroid nodule MEDICATION: 2 cc 1% buffered lidocaine COMPLICATIONS: None. LABORATORY: As ordered by Dr. Andrade OTHER: Negative. Nodule 2: IMAGING: Ultrasound BIOPSY NEEDLE: 25-gauge 2 inch SPECIMEN TYPE, #, LOCATION: 3 fine-needle aspirates left lower lobe thyroid nodule MEDICATION: 2 cc 1% buffered lidocaine COMPLICATIONS: None. LABORATORY: As ordered by Dr. Andrade OTHER: Negative. US/US biopsy thyroid IMPRESSION: Uneventful ultrasound guided biopsy of 2 separate left thyroid nodules. The patient was instructed to obtain follow up care and biopsy results from the referring physician. Electronically authenticated by: LEXIS JAIN Date: 12/07/2022 12:49 Dictated By: Lexis Jain M.D. Signed By: 12/07/22 1252 DD/ 1249 TD/TT: Plastics Fabricator: Procedure Note Radiology, Radiologist, MD - 10/30/2023 [place] [address] Ultrasound Report Signed with Addenda Patient: KARI HUMPHREY NMR#: [id number] : 1970Acct:[id number] Age/Sex: 52 / FADM Date: 12/07/22 Loc: US Attending Dr: Dolly Andrade M.D. Ordering Physician: Dolly Andrade M.D. Date of Service: 12/07/22 Procedure(s): US biopsy thyroid Accession Number(s): [id number] cc: Physician,Non-Staff Florecita; Dolly Andrade M.D. ADDENDUM The [address] [id number] Patient Name: KARI HUMPHREY MRN: [id number] date: 1970 Sex: F Assigned Patient Location: US Current Patient Location: US Accession/Order Number: [id number] Exam Date: 12/07/2022 10:05 Report Date: 12/30/2022 07:29 At the request of: DOLLY ANDRADE Procedure: US biopsy thyroid Begin Addendum #2 COLLECTION DATE: 07 Dec 2022 Nodule (B) Thyroid, Lower Left, 1. 8 cm NODULE B RESULTS SUMMARY The results of this 1. 8 cm [place] III nodule B is Afirma GSC Suspicious which suggests a risk of cancer of approximately 50%. The Risk of Malignancy ofa GSC Suspicious Afirma XA negative sample remains approximately 50%. Clinical correlation and surgical resection should be considered. 12/29/[address] Andrade and verified with Dianne that report waspresent in office. Original Report EXAMINATION: US biopsy thyroid, US biopsy FNA add lesion HISTORY: Left Thyroid Nodule COMPARISON: No relevant comparison available. TECHNIQUE: After obtaining informed consent, an ultrasound-guided biopsywas performed in the usual sterile manner. FINDINGS: Nodule 1: IMAGING: Ultrasound BIOPSY NEEDLE: 25-gauge 2 inch SPECIMEN TYPE, #, LOCATION: 3 fine-needle aspirates left mid lobe thyroid nodule MEDICATION: 2 cc 1% buffered lidocaine COMPLICATIONS: None. LABORATORY: As ordered by Dr. Andrade OTHER: Negative. Nodule 2: IMAGING: Ultrasound BIOPSY NEEDLE: 25-gauge 2 inch SPECIMEN TYPE, #, LOCATION: 3 fine-needle aspirates left lower lobethyroid nodule MEDICATION: 2 cc 1% buffered lidocaine COMPLICATIONS: None. LABORATORY: As ordered by Dr. Andrade OTHER: Negative. Addendum Dictated By: Lexis Jain M.D. Addendum Signed By: <Electronically signed by Lexis Jain M.D.> 10/20/23 1100 Addendum Cosigned By: DD/ /14/728 TD/TT: / ADDENDUM US/US biopsy thyroid IMPRESSION: Uneventful ultrasound guided biopsy of 2 separate left thyroid nodules.The patient was instructed to obtain follow up care and biopsy results fromthe referring physician. Electronically authenticated by: LEXIS JAIN Date: 12/30/2022 07:29 Addendum Dictated By: Lexis Jain M.D. Addendum Signed By: <Electronically signed by Lexis Jain M.D.> 10/20/23 1100 Addendum Cosigned By: DD/ /14/728 TD/TT: / [address] [address] Patient Name: KARI HUMPHREY MRN: [id number] date: 1970 Sex: F Assigned Patient Location: US Current Patient Location: Accession/Order Number: [id number] Exam Date: 12/07/2022 10:05 Report Date: 12/07/2022 12:49 At the request of: DOLLY ANDRADE Procedure: US biopsy thyroid EXAMINATION: US biopsy thyroid, US biopsy FNA add lesion HISTORY: Left Thyroid Nodule COMPARISON: No relevant comparison available. TECHNIQUE: After obtaining informed consent, an ultrasound-guided biopsywas performed in the usual sterile manner. FINDINGS: Nodule 1: IMAGING: Ultrasound BIOPSY NEEDLE: 25-gauge 2 inch SPECIMEN TYPE, #, LOCATION: 3 fine-needle aspirates left mid lobe thyroid nodule MEDICATION: 2 cc 1% buffered lidocaine COMPLICATIONS: None. LABORATORY: As ordered by Dr. Andrade OTHER: Negative. Nodule 2: IMAGING: Ultrasound BIOPSY NEEDLE: 25-gauge 2 inch SPECIMEN TYPE, #, LOCATION: 3 fine-needle aspirates left lower lobethyroid nodule MEDICATION: 2 cc 1% buffered lidocaine COMPLICATIONS: None. LABORATORY: As ordered by Dr. Andrade OTHER: Negative. US/US biopsy thyroid IMPRESSION: Uneventful ultrasound guided biopsy of 2 separate left thyroid nodules.The patient was instructed to obtain follow up care and biopsy results fromthe referring physician. Electronically authenticated by: LEXIS JAIN Date: 12/07/2022 12:49 Dictated By: Lexis Jain M.D. Signed By:12/07/22 1252 DD/ 1249 TD/TT: Plastics Fabricator: us Dolly Andrade MD [facility] Final Resul t documented in this encounter Visit Diagnoses Not on filedocumented in this encounter Care Teams Forest Landscape Ecology Professor Relationship Specialty Start Date End Date Seymour Waller MD [address] [place] [address] [address] [place], [place] [id number] PCP - General Family Medicine 11/16/22 Dolly Andrade MD [address] [place] [address] Otolaryngology 11/23/22 documented as of this encounter
--- OUTSIDE RECORDS SUMMARY | 2025-01-13 17:38 | XMS_ITS | Encounter Summary ---
Author Organization [facility] Address [address] [facility] [place] [address] Care Team Providers Care Pick Pulling Machine Operator Name Role Phone Seymour Waller MD Primary Care Provider [phone] Bere Andrade MD Unavailable [phone] Encounter Details Date Type Department Care Team (Late st Contact Info) Description 07/21/2023 Orders Only [facility] Otolaryngology [address] [place] [phone] Fe Good MA Papillary thyroid carcinoma (HCC); Malignant neoplasm of thyroid gland (HCC); Thyroid nodule Social History Tobacco Use Types Packs/Day Years [...] documented as of this encounter Visit Diagnoses Diagnosis Papillary thyroid carcinoma (HCC) Malignant neoplasm of thyroid gland (HCC) Malignant neoplasm of thyroid gland Thyroid nodule Nontoxic uninodular goiter documented in this encounter Care Teams Pick Pulling Machine Operator Relationship Specialty Start Date End Date Seymour Waller MD [address] [place] [address] PCP - General Family Medicine 11/16/22 Bere Andrade MD [address] [address] Otolaryngology 11/23/22 documented as of this encounter
--- OUTSIDE RECORDS SUMMARY | 2025-01-13 17:38 | XMS_ITS | Encounter Summary ---
Author Organization [facility] Address [address] [place] [address] Care Team Providers Care Log Scaler Name Role Phone Link, Seymour PINEDO Primary Care Provider [phone] Dolly Andrade MD Unavailable [phone] Encounter Details Date Type Department Care Team (Late st Contact Info) Description 07/17/2023 Clinisync Result Encounter [facility] External Department Unsolicited oDlly Andrade MD [address] [address] Social History Tobacco Use Types Packs/Day Years [...] Name Priority Date/Time Associated Diagnosis Comments US THYROID 07/17/2023 11:18 AM EDT documented in this encounter Results * US thyroid (07/17/2023 11:18 AM EDT) Anatomical Region Laterality Modality Head, Neck Ultrasound 07/17/2023 11:1 8 AM EDT Narrative 07/17/2023 11:20 AM EDT The [address] [address] Ultrasound Report Signed Patient: KARI ALEXANDER MR#: [id number] : 1970 Acct:[id number] Age/Sex: 53 / F ADM Date: 07/17/23 Loc: US Attending Dr: Dolly Andrade M.D. Ordering Physician: Dolly Andrade M.D. Date of Service: 07/17/23 Procedure(s): US thyroid Accession Number(s): [id number] cc: Physician,Non-Staff Florecita; Dolly Andrade M.D. [place] [address] Patient Name: KARI ALEXANDER MRN: [id number] date: 1970 Sex: F Assigned Patient Location: US Current Patient Location: US Accession/Order Number: [id number] Exam Date: 07/17/2023 10:14 Report Date: 07/17/2023 11:18 At the request of: DOLLY ANDRADE Procedure: US thyroid EXAMINATION: US thyroid HISTORY: Malignant Neoplasm Of Thyroid C73 COMPARISON: 11/09/2022, 12/07/2022 TECHNIQUE: Sonographic images of the thyroid gland were obtained. FINDINGS: The right thyroid lobe measures 4.9 x 1.2 x 1.6 cm. 2 focal nodules over 5 mm. Nodule 1:0.9 x 0.5 x 0.8 cm. Solid, hypoechoic, wide, smooth margins, no calcifications. TR 4 Nodule 2:0.7 x 0.4 x 0.7 cm. Solid, hypoechoic, wide, smooth margins, no calcifications. TR 4 The thyroid isthmus measures 4 mm, mildly thickened. No focal nodule The left thyroid lobe is surgically absent US/US thyroid IMPRESSION: 2 right subcentimeter TR 4 nodules. TI-RADS: The [place] TI-RADS committee's white paper recommendations for thyroid lesions classified as TR4 (moderately suspicious) are listed below: > 1.0 cm. Follow-up ultrasound in 1, 2, 3, and 5 years. > 1.5 cm. FNA. J. Am Dana Radiol 2017;14:587-595. Electronically authenticated by: LEXIS JAIN Date: 07/17/2023 11:18 Dictated By: Lexis Jain M.D. Signed By: 07/17/23 1120 DD/ 1118 TD/TT: Furniture Mover: Procedure Note Radiology, Radiologist, - 07/17/2023 [place] [address] Ultrasound Report Signed Patient: KARI ALEXANDER NMR#: [id number] : 1970Acct:[id number] Age/Sex: 53 / FADM Date: 07/17/23 Loc: US Attending Dr: Dolly Andrade M.D. Ordering Physician: Dolly Andrade M.D. Date of Service: 07/17/23 Procedure(s): US thyroid Accession Number(s): [id number] cc: Physician,Non-Staff Florecita; Dolly Andrade M.D. The [place] [address] Patient Name: KARI ALEXANDER MRN: [id number] date: 1970 Sex: F Assigned Patient Location: US Current Patient Location: US Accession/Order Number: [id number] Exam Date: 07/17/2023 10:14 Report Date: 07/17/2023 11:18 At the request of: DOLLY ANDRADE Procedure: US thyroid EXAMINATION: US thyroid HISTORY: Malignant Neoplasm Of Thyroid C73 COMPARISON: 11/09/2022, 12/07/2022 TECHNIQUE: Sonographic images of the thyroid gland were obtained. FINDINGS: The right thyroid lobe measures 4.9 x 1.2 x 1.6 cm. 2 focal nodules over 5mm. Nodule 1:0.9 x 0.5 x 0.8 cm. Solid, hypoechoic, wide, smooth margins, no calcifications. TR 4 Nodule 2:0.7 x 0.4 x 0.7 cm. Solid, hypoechoic, wide, smooth margins, no calcifications. TR 4 The thyroid isthmus measures 4 mm, mildly thickened. No focal nodule The left thyroid lobe is surgically absent US/US thyroid IMPRESSION: 2 right subcentimeter TR 4 nodules. TI-RADS: The [place] TI-RADS committee's white paper recommendations for thyroid lesions classified as TR4 (moderatelysuspicious) are listed below: > 1.0 cm. Follow-up ultrasound in 1, 2, 3, and 5 years. > 1.5 cm. FNA. J. Am Dana Radiol 2017;14:587-595. Electronically authenticated by: LEXIS JAIN Date: 07/17/2023 11:18 Dictated By: Lexis Jain M.D. Signed By:07/17/23 1120 DD/ 1118 TD/TT: Furniture Mover: us Dolly Andrade MD IMG US PROCEDURES Final Resul t documented in this encounter Visit Diagnoses Not on filedocumented in this encounter Care Teams Log Scaler Relationship Specialty Start Date End Date Seymour Waller MD [address] [place] [address] [address] [place], [place] [phone] PCP - General Family Medicine 11/16/22 Dolly Andrade MD [address] [place] [address] Otolaryngology 11/23/22 documented as of this encounter
--- OUTSIDE RECORDS SUMMARY | 2025-01-13 17:38 | XMS_ITS | Encounter Summary ---
Author Organization [facility] Address [address] [place] [address] Care Team Providers Care Lead Injection Mold Technician Name Role Phone Link, Seymour PINEDO Primary Care Provider [phone] Dolly Andrade MD Unavailable [phone] Encounter Details Date Type Department Care Team (Late st Contact Info) Description 12/11/2023 Clinisync Result Encounter [facility] External Department Unsolicited Dolly Andrade MD [address] [address] Social History Tobacco Use Types Packs/Day Years [...] Priority Date/Time Associated Diagnosis Comments US THYROID 12/11/2023 8:13 AM EDT documented in this encounter Results * US thyroid (12/11/2023 8:13 AM EDT) Anatomical Region Laterality Modality Head, Neck Ultrasound 12/11/2023 8:13 AM EDT Narrative 12/11/2023 8:16 AM EDT The [address] [address] Ultrasound Report Signed Patient: KARI HUMPHREY MR#: [id number] : 1970 Acct:[id number] Age/Sex: 53 / F ADM Date: 12/07/23 Loc: US Attending Dr: Dolly Andrade M.D. Ordering Physician: Dolly Andrade M.D. Date of Service: 12/07/23 Procedure(s): US thyroid Accession Number(s): [id number] cc: Physician,Non-Staff Florecita; Dolly Andrade M.D. [place] [address] Patient Name: KARI HUMPHREY MRN: [id number] date: 1970 Sex: F Assigned Patient Location: US Current Patient Location: Accession/Order Number: [id number] Exam Date: 12/07/2023 15:24 Report Date: 12/11/2023 08:13 At the request of: DOLLY ANDRADE Procedure: US thyroid EXAMINATION: US thyroid HISTORY: Papillary Thyroid Carcinoma, Thyroid Nodule COMPARISON: 07/17/2023 TECHNIQUE: Sonographic images of the thyroid gland were obtained. FINDINGS: The right thyroid lobe measures 4.8 x 1.4 x 1.4 cm. Mild heterogeneous echotexture with 2 nodules over 5 mm per the most suspicious nodule: Nodule 1:1.0 x 0.6 x 0.5 cm. Solid, hypoechoic, wide, smooth margins, no calcifications. TR 4 The thyroid isthmus measures 2.4 mm. No focal nodule Left thyroid lobe is surgically absent US/US thyroid IMPRESSION: 2 stable right thyroid nodules the largest a 1.0 cm TR 4 nodule TI-RADS: The [employer] TI-RADS committee's white paper recommendations for thyroid lesions classified as TR4 (moderately suspicious) are listed below: > 1.0 cm. Follow-up ultrasound in 1, 2, 3, and 5 years. > 1.5 cm. FNA. J. Am Dana Radiol 2017;14:587-595. Electronically authenticated by: LEXIS JAIN Date: 12/11/2023 08:13 Dictated By: Lexis Jain M.D. Signed By: 12/11/23 0816 DD/ 0813 TD/TT: Race Starter: Procedure Note Radiology, Radiologist, - 12/11/2023 The [place] [id number] Ultrasound Report Signed Patient: KARI HUMPHREY NMR#: [id number] : 1970Acct:[id number] Age/Sex: 53 / FADM Date: 12/07/23 Loc: US Attending Dr: Dolly Andrade M.D. Ordering Physician: Dolly Andrade M.D. Date of Service: 12/07/23 Procedure(s): US thyroid Accession Number(s): [id number] cc: Physician,Non-Staff Florecita; Dolly Andrade M.D. The [address] [address] Patient Name: KARI HUMPHREY MRN: [id number]:[id number] date: 1970 Sex: F Assigned Patient Location: US Current Patient Location: Accession/Order Number: [id number] Exam Date: 12/07/2023 15:24 Report Date: 12/11/2023 08:13 At the request of: DOLLY ANDRADE Procedure: US thyroid EXAMINATION: US thyroid HISTORY: Papillary Thyroid Carcinoma, Thyroid Nodule COMPARISON: 07/17/2023 TECHNIQUE: Sonographic images of the thyroid gland were obtained. FINDINGS: The right thyroid lobe measures 4.8 x 1.4 x 1.4 cm. Mild heterogeneous echotexture with 2 nodules over 5 mm per the most suspicious nodule: Nodule 1:1.0 x 0.6 x 0.5 cm. Solid, hypoechoic, wide, smooth margins, no calcifications. TR 4 The thyroid isthmus measures 2.4 mm. No focal nodule Left thyroid lobe is surgically absent US/US thyroid IMPRESSION: 2 stable right thyroid nodules the largest a 1.0 cm TR 4 nodule TI-RADS: The [employer] TI-RADS committee's white paper recommendations for thyroid lesions classified as TR4 (moderatelysuspicious) are listed below: > 1.0 cm. Follow-up ultrasound in 1, 2, 3, and 5 years. > 1.5 cm. FNA. J. Am Dana Radiol 2017;14:587-595. Electronically authenticated by: LEXIS JAIN Date: 12/11/2023 08:13 Dictated By: Lexis Jain M.D. Signed By:12/11/23815 DD/ 2 TD/TT: Race Starter: us Dolly Andrade MD [facility] PROCEDURES Final Resul t documented in this encounter Visit Diagnoses Not on filedocumented in this encounter Care Teams Lead Injection Mold Technician Relationship Specialty Start Date End Date Seymour Waller MD [address] [place], [place] [phone] PCP - General Family Medicine 11/16/22 Dolly Andrade MD [address] [address] Otolaryngology 11/23/22 documented as of this encounter
--- OUTSIDE RECORDS SUMMARY | 2025-01-13 17:38 | XMS_ITS | Clinical Summary ---
Author Organization [facility] Address [address] [place] [address] Phone Care Team Providers Care Floor Plan Adjuster Name Role Phone Unavailable Primary Care Provider Unavailabl e Social History Tobacco Use Types Packs/Day Years Used Date Smoking Tobacco: Never Assessed Comments Unknown Sex and Gender Information Value Date Recorded Sex Assigned at Not on file Legal Sex Female 6:56 PM EST Gender Identity Not on file Sexual Orientation Not on file Plan of Treatment Health Maintenance Due Date Last Done Comments CT Colonography 1972 Colonoscopy 1972 Colorectal Cancer Screening 1972 FIT-DNA (Cologuard) 1972 FIT 1972 HIV Screening 1972 Lipid Panel 1972 Sigmoidoscopy 1972 Yearly Adult Physical 1972 MMR Vaccines (1 of 1 - Stand monique series) 1973 Hepatitis C Screening 1990 Hepatitis B Vaccines (1 of 3 - 19+ 3-dose series) 1991 Cervical Cancer Screening 1993 HPV/Cotest 1993 Pap Smear 1993 DTaP/Tdap/Td Vaccines (1 - Tdap) 1994 Mammogram 2012 Pneumococcal Vaccine (1 of 1 - PCV) 2022 Zoster Vaccines (1 of 2) 2022 COVID-19 Vaccine (1 - 2023-2 5 season) 2024 Influenza Vaccine (#1) 2024 HIB Vaccines Aged Out No longer eligi ble based on patient's age to complete this topic HPV Vaccines Aged Out No longer eligi ble based on patient's age to complete this topic Hepatitis A Vaccines Aged Out No long er eligible based on patient's age to complete this topic IPV Vaccines Aged Out No longer eligi ble based on patient's age to complete this topic Meningococcal Vaccine Aged Out No faheem daxa eligible based on patient's age to complete this topic Rotavirus Vaccines Aged Out No longer eligible based on patient's age to complete this topic
--- OUTSIDE RECORDS SUMMARY | 2025-01-13 17:38 | XMS_ITS | Encounter Summary ---
Author Organization [facility] Address [address] [place] [address] Care Team Providers Care Supervisor Ship Maintenance Services Name Role Phone Link, Seymour PINEDO Primary Care Provider [phone] Bere Andrade MD Unavailable [phone] Encounter Details Date Type Department Care Team (Late st Contact Info) Description 12/07/2022 Clinisync Result Encounter [facility] External Department Unsolicited Bere Andrade MD [address] [facility] [address] [place] [address] Social History Tobacco Use Types Packs/Day Years [...] Name Priority Date/Time Associated Diagnosis Comments US BX THYROID 12/07/2022 12:49 PM EDT documented in this encounter Results * US BX THYROID (12/07/2022 12:49 PM EDT) Anatomical Region Laterality Modality Radiographic Odette ging 12/07/2022 12:4 9 PM EDT Narrative 10/20/2023 11:00 AM EDT The [address] [address] Ultrasound Report Signed with Madeline Patient: KARI HUMPHREY MR#: [id number] : 1970 Acct:[id number] Age/Sex: 52 / F ADM Date: 12/07/22 Loc: US Attending Dr: Bere Andrade M.D. Ordering Physician: Bere Andrade M.D. Date of Service: 12/07/22 Procedure(s): US biopsy FNA add lesion Accession Number(s): [id number] cc: Physician,Non-Staff Florecita; Bere Andrade M.D. ADDENDUM [place] [address] Patient Name: KARI HUMPHREY MRN: [id number] date: 1970 Sex: F Assigned Patient Location: US Current Patient Location: US Accession/Order Number: [id number] Exam Date: 12/07/2022 10:25 Report Date: 12/30/2022 07:29 At the request of: BERE ANDRADE Procedure: US biopsy FNA add lesion Begin Addendum #2 COLLECTION DATE: 07 Dec 2022 Nodule (B) Thyroid, Lower Left, 1. 8 cm NODULE B RESULTS SUMMARY The results of this 1. 8 cm [place] III nodule B is Afirma GSC Suspicious [...] DD/ /14/728 TD/TT: / ADDENDUM US/US biopsy FNA add lesion IMPRESSION: Uneventful ultrasound guided biopsy of 2 separate left thyroid nodules. The patient was instructed to obtain follow up care and biopsy results from the referring physician. Electronically authenticated by: LEXIS JAIN Date: 12/30/2022 07:29 Addendum Dictated By: Lexis Jain M.D. Addendum Signed By: <Electronically signed by Lexis Jain M.D.> 10/20/23 1100 Addendum Cosigned By: DD/ /14/728 TD/TT: / [place] [address] Patient Name: KARI HUMPHREY MRN: [id number] date: 1970 Sex: F Assigned Patient Location: Current Patient Location: Accession/Order Number: [id number] Exam Date: 12/07/2022 10:25 Report Date: 12/07/2022 12:49 At the request of: BERE ANDRADE Procedure: US biopsy FNA add lesion EXAMINATION: US biopsy thyroid, US biopsy FNA [...] by Dr. Andrade OTHER: Negative. US/US biopsy FNA add lesion IMPRESSION: Uneventful ultrasound guided biopsy of 2 separate left thyroid nodules. The patient was instructed to obtain follow up care and biopsy results from the referring physician. Electronically authenticated by: LEXIS JAIN Date: 12/07/2022 12:49 Dictated By: Lexis Jain M.D. Signed By: 12/07/22 1252 DD/ 1249 TD/TT: Chief Drafter: Procedure Note Radiology, Radiologist, MD - 10/30/2023 [place] [address] Ultrasound Report Signed with Madeline Patient: KARI HUMPHREY NMR#: [id number] : 1970Acct:[id number] Age/Sex: 52 / FADM Date: 12/07/22 Loc: US Attending Dr: Bere Andrade M.D. Ordering Physician: Bere Andrade M.D. Date of Service: 12/07/22 Procedure(s): US biopsy FNA add lesion Accession Number(s): [id number] cc: Physician,Non-Staff Florecita; Bere Andrade M.D. ADDENDUM The [place] [id number] Patient Name: KARI HUMPHREY MRN: [id number] date: 1970 Sex: F Assigned Patient Location: US Current Patient Location: US Accession/Order Number: [id number] Exam Date: 12/07/2022 10:25 Report Date: 12/30/2022 07:29 At the request of: BERE ANDRADE Procedure: US biopsy FNA add lesion Begin Addendum #2 COLLECTION DATE: 07 Dec 2022 Nodule (B) Thyroid, Lower Left, 1. 8 cm NODULE B RESULTS SUMMARY The results of this 1. 8 cm [place] III nodule B is Afirma GSC Suspicious [...] DD/ /14/728 TD/TT: / ADDENDUM US/US biopsy FNA add lesion IMPRESSION: Uneventful ultrasound guided biopsy of 2 separate left thyroid nodules.The patient was instructed to obtain follow up care and biopsy results fromthe referring physician. Electronically authenticated by: LEXIS JAIN Date: 12/30/2022 07:29 Addendum Dictated By: Lexis Jain M.D. Addendum Signed By: <Electronically signed by Lexis Jain M.D.> 10/20/23 1100 Addendum Cosigned By: DD/ /14/728 TD/TT: / [address] [address] Patient Name: KARI HUMPHREY MRN: [id number] date: 1970 Sex: F Assigned Patient Location: US Current Patient Location: Accession/Order Number: [id number] Exam Date: 12/07/2022 10:25 Report Date: 12/07/2022 12:49 At the request of: BERE ANDRADE Procedure: US biopsy FNA add lesion EXAMINATION: US biopsy thyroid, US biopsy FNA [...] by Dr. Andrade OTHER: Negative. US/US biopsy FNA add lesion IMPRESSION: Uneventful ultrasound guided biopsy of 2 separate left thyroid nodules.The patient was instructed to obtain follow up care and biopsy results fromthe referring physician. Electronically authenticated by: LEXIS JAIN Date: 12/07/2022 12:49 Dictated By: Lexis Jain M.D. Signed By:12/07/22 1252 DD/ 1249 TD/TT: Chief Drafter: us Bere Andrade MD IMG XR PROCEDURES Final Resul t documented in this encounter Visit Diagnoses Not on filedocumented in this encounter Care Teams Supervisor Ship Maintenance Services Relationship Specialty Start Date End Date Seymour Waller MD [address] [facility] [address] [place], [place] [id number] PCP - General Family Medicine 11/16/22 Bere Andrade MD [address] [place] [id number] Otolaryngology 11/23/22 documented as of this encounter
== END 2025-01-13 17:35 | disposition home or self-care (01) ==
PROVIDERS: PCP Nurse Practitioner Family; Visit Provider Otolaryngology
DX: E04.2 Nontoxic multinodular goiter (principal)
CPT/HCPCS: 76536